=== PATIENT | female | born 1960 | race Caucasian/White ===

== ENCOUNTER 2020-10-10 15:04 | Inpatient (IN) | payer MEDICARE, MEDICAID, SELFPAY ==
[2020-10-10] VITALS (8 sets, daily range): BP systolic 114–126; BP diastolic 43–101; PULSE 84–130; RESP 15–24; TEMP 36.6; O2SAT 94–98; BMI 19.5
--- NOTE | 2020-10-10 15:46 | XRR_ITS ---
PROCEDURE INFORMATION: Exam: XR Chest, 1 View Exam date and time: 10/10/2020 4:03 PM Age: 60 years old Clinical indication: Shortness of breath; Additional info: SOB TECHNIQUE: Imaging protocol: XR of the chest Views: 1 view. COMPARISON: CR Chest 1 [place] [id number] 11/01/2018 12:08 PM FINDINGS: Lungs: Emphysematous changes of the lungs. Surgical changes upper lobes bilaterally. No focal pulmonary consolidation. Pleural spaces: Small volume bilateral pleural effusions. Heart/Mediastinum: Mild cardiac enlargement. Vasculature: Scattered atherosclerosis of thoracic aorta. Bones/joints: Unremarkable. XR/XR chest 1V portable [id number] IMPRESSION: 1. Stigmata of severe emphysema. 2. Development of bilateral pleural effusions.
--- NOTE | 2020-10-10 15:56 | ECG_ITS ---
[facility] Test Date: 2020-10-10 Pat Name: Blanca Ramirez Department: Room: Gender: Female Dtp Operator: : 1960 Requested By: Ira Monroy Order Number: [id number] Bhaskar MD: Elizabeth Posey M.D. Measurements Intervals Wheeler Rate: 128 P: SC: QRS: 93 QRSD: 85 T: -87 QT: 312 QTc: 457 Interpretive Statements ATRIAL FIBRILLATION WITH RAPID VENTRICULAR RESPONSE BORDERLINE RIGHT AXIS DEVIATION [QRS AXIS > 90] POSSIBLE ANTERIOR MYOCARDIAL INFARCTION , PROBABLY OLD [30 ms Q WAVE IN V3/V4, OR R < 0.2 mV IN V4] ST DEVIATION AND MODERATE T-WAVE ABNORMALITY, CONSIDER LATERAL ISCHEMIA [-0.1+ mV T WAVE IN I/aVL/V5/V6] ST DEVIATION AND MODERATE T-WAVE ABNORMALITY, CONSIDER INFERIOR ISCHEMIA [-0.1+ mV T WAVE IN II/aVF] Compared to ECG 11/18/2018 11:53:47 Myocardial infarct finding now present Sinus bradycardia no longer present T-wave abnormality still present Possible ischemia still present Electronically Signed On 10-11-2020 19:34:59 CAR SUPPLIER by Elizabeth Posey M.D. [email or web address]
--- NOTE | 2020-10-10 16:07 | ED_ITS ---
Documented by User: AURE Mcgill 10/10/20 16:49 HPI - SOB/Dyspnea General: Chief Complaint: General Medical Stated Complaint: Needing fluids drained again, recently released Time Seen by Provider: 10/10/20 15:55 Source: patient and family Mode of arrival: wheelchair Limitations: no limitations History of Present Illness: HPI Narrative: Patient is a 60-year-old female who presents to ED today with a main complaint of shortness of breath. Patient tells me she had a cardiac ablation performed on Tuesday at [facility] in [place] for medication resistant atrial fibrillation. Patient tells me she was discharged on Tuesday. She states when she got home she felt extremely fatigued so checked her oxygen and states it was running in the 80s. Patient tells me in 2014 she had a lung volume decrease surgery. She states because of this in combination with her atrial fibrillation she does have oxygen at home but very rarely has to use it. She states she has had to be on oxygen continuously since she got home from her surgery on Tuesday. She states if she gets up and ambulates she will easily drop into the 70s. Patient has also noticed bilateral lower extremity swelling. She states prior to the cardiac ablation they had to diurese 1000 mL fluid. She reports no history of CHF. She states prior to the procedure her medications were hydrocodone that she takes for chronic pain and diltiazem. When she was discharged they discontinued her diltiazem and placed her on metoprolol and eliquis. MD elicited complaint: shortness of breath Onset (ago): day(s) Context: other (recent surgery) Timing: constant Severity: severe Exacerbating factors: exertion Relieving factors: oxygen Associated symptoms: Reports palpitations; Deny abdominal pain, chest congestion, chest pain, fever(s), hemoptysis, nausea or vomiting Treatment prior to arrival: oxygen Review of Systems Const: Reports: other (achiness to bilateral legs); Denies: fever(s), chills, body aches, fatigue or malaise Card: Reports: palpitations, irregular heart rhythm, edema and dyspnea on e xertion; Denies: chest pain Resp: Reports: dyspnea; Denies: productive cough, non-productive cough, wheezing, hemoptysis or chest congestion GI: Denies: abdominal pain, nausea or vomiting Musc: Reports: other (bilateral LE swelling) Neuro: Denies: headache(s) PFSH ED PFSH: Medical History (Updated 10/10/20 @ 20:33 by Gibson Hughes MD, [facility]) Emphysema of lung Paroxysmal atrial fibrillation Surgical History (Updated 10/10/20 @ 20:33 by Gibson Hughes MD, [facility]) History of lung surgery S/P ablation of atrial fibrillation Social History (Updated 10/10/20 @ 19:23 by Elizabeth Posey MD) Smoking and tobacco status: former smoker Quit status (tobacco): has quit using tobacco Year quit tobacco: 2007 Lives independently: No Household members: other Details: daughter Physical Exam Const: COMMON NORMALS: patient oriented x3, no limitations and alert GENERAL APPEARANCE: cooperative NUTRITIONAL APPEARANCE: thin ORIENTATION/CONSCIOUSNESS: Yes awake, Yes oriented to person, Yes oriented to place and Yes oriented to time HENMT: COMMON NORMALS: normocephalic and atraumatic HEAD & SCALP: normocephalic and atraumatic Resp: COMMON NORMALS: clear to auscultation bilaterally EFFORT & INSPECTION: Yes labored (mildly), No grunting, No stridor, No Actively coughing, No retractions and Yes uses accessory muscles AUSCULTATION: clear to auscultation bilaterally Cardio: RATE: tachycardic RHYTHM: abnormal rhythm irregularly irregular GI: COMMON NORMALS: Normal to inspection, nondistended, normoactive bowel sounds present, Soft to palpation, non-tender, No hepatosplenomegaly present and no masses PALPATION: Yes Soft to palpation and Yes No hepatosplenomegaly present Extremity: GENERAL: Yes edema (bilateral LE pitting edema) Neuro: YUN COMA SCALE: document GCS findings Yun coma scale eye opening: Spontaneous [place] coma scale verbal response: Orientated [place] coma scale motor response: Obey commands Yun coma scale total score: 15 COMMON NORMALS: patient oriented x3 SENSORIUM/ORIENTATION: Yes alert, Yes oriented to person, Yes oriented to place and Yes oriented to time Course Vital Signs: Vital signs: Vital Signs Temperature 97.8 F 10/10/20 15:33 Pulse Rate 122 H 10/10/20 19:58 Respiratory Rate 24 H 10/10/20 19:58 Blood Pressure 120/70 10/10/20 18:38 Pulse Oximetry 95 10/10/20 18:38 MDM - SOB/Dyspnea MDM Narrative: Medical decision making narrative: Patient is in atrial fibrillation currently. I have started her on a small cardizem bolus and drip. Lab work pending. CXR shows small bilateral pulmonary effusions. We will CTA her chest to rule out pulmonary embolus. I have discussed patient with Dr. Hughes who will assume care for patient as my shift is ending. Lab Data: Labs: Lab Results 10/10/20 10/10/20 10/10/20 Range/Units 16:35 16:35 16:35 WBC 7.4 (4.0-10.0) 10^3/ uL RBC 4.49 (4.1-5.3) 10^6/u L Hgb 13.5 (11.5-15.3) g/dL Hct 43.0 (37.0-47.0) % MCV 95.8 (81-99) fL MCH 30.1 (28.0-34.0) pg MCHC 31.4 (30.0-36.0) g/dL RDW 14.8 (12.1-15.1) % Plt Count 224 (130-400) 10^3/c mm MPV 9.9 (7.4-10.4) fL Neut % (Auto) 68.8 % Lymph % (Auto) 17.3 % Carver % (Auto) 9.5 % Eos % (Auto) 3.2 % Baso % (Auto) 0.7 % Neut # (Auto) 5.08 (1.8-7.7) 10^3/u L Lymph # (Auto) 1.3 (0.8-4.8) 10^3/u L Carver # (Auto) 0.7 (0.2-0.9) 10^3/u L Eos # (Auto) 0.2 (0.0-0.8) 10^3/u L Baso # (Auto) 0.1 (0.0-0.1) 10^3/u L Nucleated RBC % (a uto) 0 % Nucleated RBCs # 0.0 /100WBC APTT (23.9-36.7) SECO NDS Sodium 141 (136-145) mmol/L Potassium 3.6 (3.5-5.1) mmol/L Chloride 103 (98-107) mmol/L Carbon Dioxide 31 H (22-29) mmol/L Anion Gap 10.6 (5-19) BUN 8 (8-23) mg/dL Creatinine 0.5 (0.5-0.9) mg/dL GFR Calculation 125.0 (90-130) mL/min Glucose 123 H (65-115) mg/dL Calculated Osmolal ity 292 (285-295) mOsm/k g Lactic Acid 1.2 (0.5-2.2) mmol/L Calcium 8.3 L (8.5-10.5) mg/dL Total Bilirubin 0.5 (0.15-1.2) mg/dL AST 15 (0-32) U/L ALT 9 (0-33) U/L Alkaline Phosphata se 62 (35-105) IU/L Troponin T Baselin e (0-10) ng/L NT-Pro-B Natriuret Pep 6134 H (0-125) pg/mL Total Protein 5.4 L (6.6-8.7) g/dL Albumin 3.6 (3.5-5.2) g/dL Globulin 1.8 (1.3-4.6) g/dL 10/10/20 10/10/20 Range/Units 16:35 16:35 WBC (4.0-10.0) 10^3/ uL RBC (4.1-5.3) 10^6/u L Hgb (11.5-15.3) g/dL Hct (37.0-47.0) % MCV (81-99) fL MCH (28.0-34.0) pg MCHC (30.0-36.0) g/dL RDW (12.1-15.1) % Plt Count (130-400) 10^3/c mm MPV (7.4-10.4) fL Neut % (Auto) % Lymph % (Auto) % Carver % (Auto) % Eos % (Auto) % Baso % (Auto) % Neut # (Auto) (1.8-7.7) 10^3/u L Lymph # (Auto) (0.8-4.8) 10^3/u L Carver # (Auto) (0.2-0.9) 10^3/u L Eos # (Auto) (0.0-0.8) 10^3/u L Baso # (Auto) (0.0-0.1) 10^3/u L Nucleated RBC % (a uto) % Nucleated RBCs # /100WBC APTT 37.0 H (23.9-36.7) SECO NDS Sodium (136-145) mmol/L Potassium (3.5-5.1) mmol/L Chloride (98-107) mmol/L Carbon Dioxide (22-29) mmol/L Anion Gap (5-19) BUN (8-23) mg/dL Creatinine (0.5-0.9) mg/dL GFR Calculation (90-130) mL/min Glucose (65-115) mg/dL Calculated Osmolal ity (285-295) mOsm/k g Lactic Acid (0.5-2.2) mmol/L Calcium (8.5-10.5) mg/dL Total Bilirubin (0.15-1.2) mg/dL AST (0-32) U/L ALT (0-33) U/L Alkaline Phosphata se (35-105) IU/L Troponin T Baselin e 458 H* (0-10) ng/L NT-Pro-B Natriuret Pep (0-125) pg/mL Total Protein (6.6-8.7) g/dL Albumin (3.5-5.2) g/dL Globulin (1.3-4.6) g/dL Imaging Data^: CXR: Radiologist's impression: [address] [address] XRay Report Signed Patient: Blanca Ramirez Unit #: [id number] : [id number] Age/Sex: 60 / F ADM Date: 10/10/20 Loc: ER Room/Bed: Attending Dr: Ordering Provider/Ordering MD: Ira Monroy Date of Service: 10/10/20 Procedure(s): XR chest 1V portable [id number] Accession Number(s): [id number] Report Number: [id number] PROCEDURE INFORMATION: Exam: XR Chest, 1 View Exam date and time: 10/10/2020 4:03 PM Age: 60 years old Clinical indication: Shortness of breath; Additional info: SOB TECHNIQUE: Imaging protocol: XR of the chest Views: 1 view. COMPARISON: CR Chest 1 [place] [id number] 11/01/2018 12:08 PM FINDINGS: Lungs: Emphysematous changes of the lungs. Surgical changes upper lobes bilaterally. No focal pulmonary consolidation. Pleural spaces: Small volume bilateral pleural effusions. Heart/Mediastinum: Mild cardiac enlargement. Vasculature: Scattered atherosclerosis of thoracic aorta. Bones/joints: Unremarkable. XR/XR chest 1V portable [id number] IMPRESSION: 1. Stigmata of severe emphysema. 2. Development of bilateral pleural effusions. Dictated By: Xavi Murphy Signed By: Xavi Murphy Signed Date/Time: 10/10/20 1620 DD/ 1618 Discharge Plan Discharge Patient Disposition: Admitted As Inpatient Admit Provider: Rickie Simons Clinical Impression: NSTEMI (non-ST elevated myocardial infarction), Atrial fibrillation with RVR, Acute decompensated heart failure, S/P ablation of atrial fibrillation Pulmonary embolism Qualifiers: Pulmonary embolism type: single subsegmental (without acute cor pulmonale) Qualified Code(s): I26.93 - Single subsegmental pulmonary embolism without acute cor pulmonale Condition: Stable Discharge Diet: Cardiac Sign Out Sign Out Data: Patient Sign Out occurred on 10/10/20 at 17:20. Patient's care was discussed, and care was transferred from to Gibson Hughes MD, [facility]. Post-Handoff Eval: Patient with a.fib with RVR who is pending her troponin, CTA, and is likely going to be Coding Level of Care Code ED Servomechanism Assembler for Chg Fwd Exam Detailed Documented by User: Gibson Hughes MD, [facility] 10/10/20 20:34 HPI - SOB/Dyspnea General: Chief Complaint: General Medical Stated Complaint: Needing fluids drained again, recently released Time Seen by Provider: 10/10/20 15:55 PFSH ED PFSH: Medical History (Updated 10/10/20 @ 20:33 by Gibson Hughes MD, [facility]) Emphysema of lung Paroxysmal atrial fibrillation Surgical History (Updated 10/10/20 @ 20:33 by Gibson Hughes MD, [facility]) History of lung surgery S/P ablation of atrial fibrillation Social History (Updated 10/10/20 @ 19:23 by Elizabeth Posey MD) Smoking and tobacco status: former smoker Quit status (tobacco): has quit using tobacco Year quit tobacco: 2007 Lives independently: No Household members: other Details: daughter Course Reevaluation(s): Reevaluation #1: Discussed her lab and imaging findings with her including her troponin levels. Advised that she possibly has a non-STEMI, she also has CHF. Advised that she needs to be in the hospital. Since she had the ablation done at [facility] I asked if she would like to return there for continuity of care, however she would prefer to be admitted in this facility and if needed can later be transferred. Time: 17:15 Consultations: Consultation #1: Discussed the patient with Dr. Posey, gas dispenser. She will evaluate this patient in the ED and follow the patient in the hospital. Time: 17:26 Consultation #2: Discussed the patient with Dr. Simons, hospitalist and he kindly accepted the patient to his service. Time: 17:30 Vital Signs: Vital signs: Vital Signs Temperature 97.8 F 10/10/20 15:33 Pulse Rate 122 H 10/10/20 19:58 Respiratory Rate 24 H 10/10/20 19:58 Blood Pressure 120/70 10/10/20 18:38 Pulse Oximetry 95 10/10/20 18:38 MDM - SOB/Dyspnea MDM Narrative: Medical decision making narrative: Kindly review the Ira LOONEY's notes for complete history and physical examination. Essentially this is a 60-year-old female with a history of A. fib and had an ablation done a few days ago at [facility] in [place]. Since she got discharged about 4 days ago she has had worsening shortness of breath with associated orthopnea, paroxysmal nocturnal dyspnea, and dyspnea on exertion. In the ED today she was found to be in A. fib with RVR and required intravenous diltiazem including a drip, baseline troponin was markedly elevated at greater than 400, and she is in CHF. Because of all the above she is being admitted for further cardiac work-up and management. The patient opted to be admitted in this facility instead of being transferred back to [place]. She was started on a heparin drip also in the emergency department. Medical Records: Attestation: I reviewed the patient's medical records. Lab Data: Attestation: I reviewed the patient's lab results. Labs: Lab Results 10/10/20 10/10/20 10/10/20 Range/Units 16:35 16:35 16:35 WBC 7.4 (4.0-10.0) 10^3/ uL RBC 4.49 (4.1-5.3) 10^6/u L Hgb 13.5 (11.5-15.3) g/dL Hct 43.0 (37.0-47.0) % MCV 95.8 (81-99) fL MCH 30.1 (28.0-34.0) pg MCHC 31.4 (30.0-36.0) g/dL RDW 14.8 (12.1-15.1) % Plt Count 224 (130-400) 10^3/c mm MPV 9.9 (7.4-10.4) fL Neut % (Auto) 68.8 % Lymph % (Auto) 17.3 % Carver % (Auto) 9.5 % Eos % (Auto) 3.2 % Baso % (Auto) 0.7 % Neut # (Auto) 5.08 (1.8-7.7) 10^3/u L Lymph # (Auto) 1.3 (0.8-4.8) 10^3/u L Carver # (Auto) 0.7 (0.2-0.9) 10^3/u L Eos # (Auto) 0.2 (0.0-0.8) 10^3/u L Baso # (Auto) 0.1 (0.0-0.1) 10^3/u L Nucleated RBC % (a uto) 0 % Nucleated RBCs # 0.0 /100WBC APTT (23.9-36.7) SECO NDS Sodium 141 (136-145) mmol/L Potassium 3.6 (3.5-5.1) mmol/L Chloride 103 (98-107) mmol/L Carbon Dioxide 31 H (22-29) mmol/L Anion Gap 10.6 (5-19) BUN 8 (8-23) mg/dL Creatinine 0.5 (0.5-0.9) mg/dL GFR Calculation 125.0 (90-130) mL/min Glucose 123 H (65-115) mg/dL Calculated Osmolal ity 292 (285-295) mOsm/k g Lactic Acid 1.2 (0.5-2.2) mmol/L Calcium 8.3 L (8.5-10.5) mg/dL Total Bilirubin 0.5 (0.15-1.2) mg/dL AST 15 (0-32) U/L ALT 9 (0-33) U/L Alkaline Phosphata se 62 (35-105) IU/L Troponin T Baselin e (0-10) ng/L NT-Pro-B Natriuret Pep 6134 H (0-125) pg/mL Total Protein 5.4 L (6.6-8.7) g/dL Albumin 3.6 (3.5-5.2) g/dL Globulin 1.8 (1.3-4.6) g/dL 10/10/20 10/10/20 Range/Units 16:35 16:35 WBC (4.0-10.0) 10^3/ uL RBC (4.1-5.3) 10^6/u L Hgb (11.5-15.3) g/dL Hct (37.0-47.0) % MCV (81-99) fL MCH (28.0-34.0) pg MCHC (30.0-36.0) g/dL RDW (12.1-15.1) % Plt Count (130-400) 10^3/c mm MPV (7.4-10.4) fL Neut % (Auto) % Lymph % (Auto) % Carver % (Auto) % Eos % (Auto) % Baso % (Auto) % Neut # (Auto) (1.8-7.7) 10^3/u L Lymph # (Auto) (0.8-4.8) 10^3/u L Carver # (Auto) (0.2-0.9) 10^3/u L Eos # (Auto) (0.0-0.8) 10^3/u L Baso # (Auto) (0.0-0.1) 10^3/u L Nucleated RBC % (a uto) % Nucleated RBCs # /100WBC APTT 37.0 H (23.9-36.7) SECO NDS Sodium (136-145) mmol/L Potassium (3.5-5.1) mmol/L Chloride (98-107) mmol/L Carbon Dioxide (22-29) mmol/L Anion Gap (5-19) BUN (8-23) mg/dL Creatinine (0.5-0.9) mg/dL GFR Calculation (90-130) mL/min Glucose (65-115) mg/dL Calculated Osmolal ity (285-295) mOsm/k g Lactic Acid (0.5-2.2) mmol/L Calcium (8.5-10.5) mg/dL Total Bilirubin (0.15-1.2) mg/dL AST (0-32) U/L ALT (0-33) U/L Alkaline Phosphata se (35-105) IU/L Troponin T Baselin e 458 H* (0-10) ng/L NT-Pro-B Natriuret Pep (0-125) pg/mL Total Protein (6.6-8.7) g/dL Albumin (3.5-5.2) g/dL Globulin (1.3-4.6) g/dL Imaging Data^: CXR: Attestation: I personally reviewed and interpreted this imaging study as follows: Radiologist's impression: [address] [address] XRay Report Signed Patient: Blanca Ramirez #: [id number] : 8Acct#:[id number] Age/Sex: 60 / FADM Date: 10/10/20 Loc: ERRoom/Bed: Attending Dr: Ordering Provider/Ordering MD: Ira Monroy Date of Service: 10/10/20 Procedure(s): XR chest 1V portable [id number] Accession Number(s): [id number] Report Number: [id number] PROCEDURE INFORMATION: Exam: XR Chest, 1 View Exam date and time: 10/10/2020 4:03 PM Age: 60 years old Clinical indication: Shortness of breath; Additional info: SOB TECHNIQUE: Imaging protocol: XR of the chest Views: 1 view. COMPARISON: CR Chest 1 [place] [id number] 11/01/2018 12:08 PM FINDINGS: Lungs: Emphysematous changes of the lungs. Surgical changes upper lobes bilaterally. No focal pulmonary consolidation. Pleural spaces: Small volume bilateral pleural effusions. Heart/Mediastinum: Mild cardiac enlargement. Vasculature: Scattered atherosclerosis of thoracic aorta. Bones/joints: Unremarkable. XR/XR chest 1V portable [id number] IMPRESSION: 1. Stigmata of severe emphysema. 2. Development of bilateral pleural effusions. Dictated By:Xavi Murphy Signed By:Vipin Murphy Date/Time:10/10/20 1620 DD/ 1618 CTA Chest: Attestation: I personally reviewed and interpreted this imaging study as follows: Radiologist's impression: [place] [address] CT Scan Report Signed with Addenda Patient: Blanca Ramirez #: [id number] : 8Acct#:[id number] Age/Sex: 60 / FADM Date: 10/10/20 Loc: ERRoom/Bed: Attending Dr: Ordering Provider/Ordering MD: Ira Monroy Date of Service: 10/10/20 Procedure(s): CT angio chest PE protcl [id number] Accession Number(s): [id number] Report Number: [id number]/CT angio chest PE protcl [id number] THIS REPORT CONTAINS FINDINGS THAT MAY BE CRITICAL TO PATIENT CARE. The findings were verbally communicated via telephone conference with Dr. Hughes at 6:26 PM BLOWER INSTALLER on 10/10/2020. The findings were acknowledged and understood. Radiation Dose CTDIVOL = (mGy): DLP = 452.9 (mGy-cm) Addendum Dictated By: Xavi Murphy Addendum Signed By: Vipin Murphy Date/Time:10/10/20 1828 Addendum Cosigned By: PROCEDURE INFORMATION: Exam: CT Angiography Chest With Contrast Exam date and time: 10/10/2020 5:18 PM Age: 60 years old Clinical indication: Shortness of breath; Prior surgery; Surgery type: Lung; Additional info: Recent cardiac ablation; Severe SOB TECHNIQUE: Imaging protocol: Computed tomographic angiography of the chest with contrast. 3D rendering (Not supervised by radiologist): MIP and/or 3D reconstructed images were created by the technologist. Radiation optimization: All CT scans at this facility use at least one of these dose optimization techniques: automated exposure control; mA and/or kV adjustment per patient size (includes targeted exams where dose is matched to clinical indication); or iterative reconstruction. Contrast material: OMNI 350; Contrast volume: 91 ml; Contrast route: INTRAVENOUS (IV); COMPARISON: CTA Chest-Pulmonary Emb [id number] 09/14/2015 3:02 PM RADIATION DOSE METRICS: Total DLP (mGy-cm): 452.9 FINDINGS: Pulmonary arteries: There appears to be an eccentric filling defect within the anteroapical pulmonary segmental artery of the right upper lobe best seen on axial series 2, images 169-191. Aorta: Unremarkable. No aortic aneurysm. No aortic dissection. Lungs: Severe emphysema throughout both lungs. No focal endobronchial lesion. Mild bilateral lower lobe compressive atelectasis changes. Pleural spaces: Small volume bilateral pleural effusions. Negative for pneumothorax. Heart: Multichamber cardiac dilation changes. Negative for pericardial effusion. RV/LV ratio appears unremarkable, slightly less than 0.9. No interventricular septal bowing. Lymph nodes: Unremarkable. No enlarged lymph nodes. Intraperitoneal space: Trace perihepatic free fluid volume. Bones/joints: Unremarkable. No acute fracture. Soft tissues: Unremarkable. CT/CT angio chest PE protcl [id number] IMPRESSION: 1. Suspect small volume pulmonary artery embolism in the right upper lobe. 2. No convincing CT angiogram evidence of acute significant right heart strain, although clinical correlation necessary. 3. Mildly dilated cardiomyopathy changes not significantly changed from prior. 4. Development of bilateral pleural effusions. 5. Features of advanced centrilobular emphysema throughout the lungs. Radiation Dose CTDIVOL = (mGy): DLP = 452.9 (mGy-cm) Dictated By:Xavi Murphy Signed By:Vipin Murphy Date/Time:10/10/20 1800 DD/ 1759 EKG Data^: EKG 1: Attestation: I personally reviewed and interpreted this EKG as follows: EKG Interpretation Date: 10/10/20 EKG interpretation time: 16:16 Prior EKG tracings: not available for review Interpretation: Atrial fibrillation with RVR. Heart rate [address] depression in [address] depression in V4 V5 V6. EKG 2: Attestation: I personally reviewed and interpreted this EKG as follows: EKG Interpretation Date: 10/10/20 EKG interpretation time: 18:48 Prior EKG tracings: available for review Interpretation: Atrial fibrillation with RVR. Heart rate [address] depression in 2 3 aVF as well as V4 V5 V6. No significant change from earlier Critical Care Time Critical Care Time: Critical Care Time: Yes Total Critical Care Time: 60 Attestation: This case had a high probability of a clinically significant, sudden, or life threatening deterioration of this patient's condition which required my full and direct attention, intervention and personal management. Discharge Plan Discharge Patient Disposition: Admitted As Inpatient Admit Provider: Rickie Simons Clinical Impression: NSTEMI (non-ST elevated myocardial infarction), Atrial fibrillation with RVR, Acute decompensated heart failure, S/P ablation of atrial fibrillation Pulmonary embolism Qualifiers: Pulmonary embolism type: single subsegmental (without acute cor pulmonale) Qualified Code(s): I26.93 - Single subsegmental pulmonary embolism without acute cor pulmonale Condition: Stable Discharge Diet: Cardiac Sign Out Sign Out Data: Patient Sign Out occurred on 10/10/20 at 17:20. Patient's care was discussed, and care was transferred from to Gibson Hughes MD, [facility]. Post-Handoff Eval: Patient with a.fib with RVR who is pending her troponin, CTA, and is likely going to be Coding Level of Care Code ED Servomechanism Assembler for Chg Fwd Exam Detailed
--- NOTE | 2020-10-10 16:11 | CTR_ITS ---
PROCEDURE INFORMATION: Exam: CT Angiography Chest With Contrast Exam date and time: 10/10/2020 5:18 PM Age: 60 years old Clinical indication: Shortness of breath; Prior surgery; Surgery type: Lung; Additional info: Recent cardiac ablation; Severe SOB TECHNIQUE: Imaging protocol: Computed tomographic angiography of the chest with contrast. 3D rendering (Not supervised by radiologist): MIP and/or 3D reconstructed images were created by the technologist. Radiation optimization: All CT scans at this facility use at least one of these dose optimization techniques: automated exposure control; mA and/or kV adjustment per patient size (includes targeted exams where dose is matched to clinical indication); or iterative reconstruction. Contrast material: OMNI 350; Contrast volume: 91 ml; Contrast route: INTRAVENOUS (IV); COMPARISON: CTA Chest-Pulmonary Emb [id number] 09/14/2015 3:02 PM RADIATION DOSE METRICS: Total DLP (mGy-cm): 452.9 FINDINGS: Pulmonary arteries: There appears to be an eccentric filling defect within the anteroapical pulmonary segmental artery of the right upper lobe best seen on axial series 2, images 169-191. Aorta: Unremarkable. No aortic aneurysm. No aortic dissection. Lungs: Severe emphysema throughout both lungs. No focal endobronchial lesion. Mild bilateral lower lobe compressive atelectasis changes. Pleural spaces: Small volume bilateral pleural effusions. Negative for pneumothorax. Heart: Multichamber cardiac dilation changes. Negative for pericardial effusion. RV/LV ratio appears unremarkable, slightly less than 0.9. No interventricular septal bowing. Lymph nodes: Unremarkable. No enlarged lymph nodes. Intraperitoneal space: Trace perihepatic free fluid volume. Bones/joints: Unremarkable. No acute fracture. Soft tissues: Unremarkable. CT/CT angio chest PE protcl [id number] IMPRESSION: 1. Suspect small volume pulmonary artery embolism in the right upper lobe. 2. No convincing CT angiogram evidence of acute significant right heart strain, although clinical correlation necessary. 3. Mildly dilated cardiomyopathy changes not significantly changed from prior. 4. Development of bilateral pleural effusions. 5. Features of advanced centrilobular emphysema throughout the lungs. Radiation Dose CTDIVOL = (mGy): DLP = 452.9 (mGy-cm)
--- NOTE | 2020-10-10 16:12 | PC.PHAR ---
PT STATES SHE WAS TAKING DILTIAZEM ER (CD) 240MG PO DAILY AND MAY TAKE ONE MORE TAB PRN MAX OF 2 TABS PER DAY PT STATES THAT MEDICATION WAS DCED ON Tuesday10/03/20
--- NOTE | 2020-10-10 16:29 | PC.NURSE ---
EKG done at 1616 and shown to ELISA LOONEY
[2020-10-10 16:48] LABS: Basophils # 0.1 10^3/uL (0.0-0.1); Basophils % 0.7 %; Eosinophils # 0.2 10^3/uL (0.0-0.8); Eosinophils % 3.2 %; Hemoglobin 13.5 g/dL (11.5-15.3); Lymphocytes # 1.3 10^3/uL (0.8-4.8); Lymphocytes % 17.3 %; Mean Corpuscular HGB Conc 31.4 g/dL (30.0-36.0); Mean Corpuscular Hemoglobin 30.1 pg (28.0-34.0); Mean Corpuscular Volume 95.8 fL (81-99); Mean Platelet Volume 9.9 fL (7.4-10.4); Monocytes # 0.7 10^3/uL (0.2-0.9); Monocytes % 9.5 %; Neutrophils # 5.08 10^3/uL (1.8-7.7); Neutrophils % 68.8 %; Nucleated Red Blood Cells % 0 %; Platelet Count 224 10^3/cmm (130-400); Red Blood Count 4.49 10^6/uL (4.1-5.3); Red Cell Distribution Width 14.8 % (12.1-15.1); White Blood Count 7.4 10^3/uL (4.0-10.0)
[2020-10-10 17:02] LABS: Lactic Sepsis W/Reflex 1.2 mmol/L (0.5-2.2)
[2020-10-10 17:10] LABS: Troponin(5th) Baseline 458 ng/L (0-10)
[2020-10-10 17:14] LABS: Alanine Aminotransferase 9 U/L (0-33); Albumin Level 3.6 g/dL (3.5-5.2); Alkaline Phosphatase 62 IU/L (35-105); Anion Gap 10.6 (5-19); Aspartate Amino Transferase 15 U/L (0-32); Blood Urea Nitrogen 8 mg/dL (8-23); Calcium 8.3 mg/dL (8.5-10.5); Carbon Dioxide 31 mmol/L (22-29); Chloride 103 mmol/L (98-107); Creatinine Clr Calc Pharmacy 117.2582; Globulin 1.8 g/dL (1.3-4.6); Glucose 123 mg/dL (65-115); NT Pro B Type Natriuretic Pept 6134 pg/mL (0-125); Osmolality Calculated 292 mOsm/kg (285-295); Potassium 3.6 mmol/L (3.5-5.1); Sodium 141 mmol/L (136-145); Total Bilirubin 0.5 mg/dL (0.15-1.2); Total Protein 5.4 g/dL (6.6-8.7)
[2020-10-10] MEDS: iohexol 350 mg/mL 100 mL Btl IV (17:28)
--- NOTE | 2020-10-10 17:29 | PM.CONSULT ---
Providers/Reason For Consult Consulting Physican/Specialty*: Dr. Posey, cardiology Reason for Consult*: A. fib with RVR, elevated troponin and decompensated congestive heart failure Requesting Physcian: Dr. Hughes Primary Care Provider: Anay Morillo MD History of Present Illness History of Present Illness Blanca Ramirez is a 60 year old female with past medical history significant for paroxysmal atrial fibrillation s/p cardioversion in October 2018, nonobstructive mild coronary artery disease by coronary angiogram in 2014, severe emphysema on oxtgen at home as needed, history of tobacco abuse and status post lung reduction surgery. She is a former patient of Dr. Haddad. She has a history of non compliance and was accompanied by her sister today. History was obtained from patient and her daughter. She was referred to Dr. Monsivais by Dr. Morillo for A. fib ablation. She tells me that her last episode of symptomatic A. fib was in 04/2020. She saw Dr. Monsivais at [facility] in [place] and was scheduled to have outpatient A. fib ablation. She was undergoing pre op w/u and got admitted on Tuesday d/t some abnormal ?labs/test results and was diuresed about 1 L and had angiogram as well. I do not have any records to corroborate the story.She was discharged on metoprolol and Eliquis (yvonne med). She was discharged home on Tuesday and soon after started having significant SOB and leg swelling. Her pulse on pulse ox was ranging 60-80's per patient. On arrival, her proBNP is elevated and troponin T >400. NO chest pain. She is currently in A. fib with RVR. I have been asked to evaluate and assist in further management. Review of Systems General: Reports: 10 or more systems reviewed and unremarkable except in HPI and below Const: Denies: fever(s), chills, body aches, fatigue or malaise ENMT: Denies: nasal congestion or epistaxis Card: Reports: palpitations, irregular heart rhythm, edema and dyspnea on exertion; Denies: chest pain or orthopnea Resp: Reports: dyspnea; Denies: productive cough, non-productive cough, wheezing, hemoptysis or chest congestion GI: Denies: abdominal pain, nausea, vomiting, hematochezia or melena : Denies: difficulty voiding, dysuria or hematuria Musc: Reports: extremity swelling and other Neuro: Denies: headache(s) Psych: Denies: anxiety or depression Bhaskar/Lymph: Denies: petechiae or purpura All/Imm: Denies: facial swelling Meds/Allergies Home Medications and Allergies Home Medications Medication Instructions Recorded Confirmed Last Taken Type acetaminophen [Tylenol Extra 1,000 mg PO PRN 10/10/20 10/10/20 Unknown History Strength] apixaban [Eliquis] 5 mg PO BID 10/10/20 10/10/20 10/10/20 09:00 History hydrocodone-acetaminophen 1 - 2 tab PO Q4H PRN MDD 5 TABS 10/10/20 10/10/20 10/10/20 14:00 History metoprolol succinate 25 mg PO QAM 10/10/20 10/10/20 10/10/20 History Allergies Allergy/AdvReac Type Severity Reaction Status Date / Time No Known Allergies Allergy Verified 10/10/20 16:11 Current Medications Current Medications Generic Name Dose Route Start Last Admin Trade Name Freq PRN Reason Stop Dose Admin Iohexol 0 ml 10/10/20 17:28 10/10/20 17:28 Iohexol 350 Mg/Ml 100 Ml Btl IV 10/10/20 17:29 91 ml ONCE ONE Administration PFSH Acute PFSH: Medical History (Updated 10/10/20 @ 19:22 by Elizabeth Posey MD) Emphysema of lung Paroxysmal atrial fibrillation Surgical History (Updated 10/10/20 @ 19:22 by Elizabeth Posey MD) History of lung surgery S/P ablation of atrial fibrillation Social History (Updated 10/10/20 @ 19:23 by Elizabeth Posey MD) Smoking and tobacco status: former smoker Quit status (tobacco): has quit using tobacco Year quit tobacco: 2007 Lives independently: No Household members: other Details: daughter Vitals/I&O/Wt Last Vital Signs Temp 97.8 F 10/10/20 15:33 Pulse 120 H 10/10/20 16:16 Resp 22 H 10/10/20 16:16 BP 117/101 10/10/20 16:16 Pulse Ox 97 10/10/20 16:16 Weight last 48 hrs Weight 132 lb Physical Exam Narrative: EXAM NARRATIVE: GENERAL: Averagely built and averagely nourished in no acute distress HEENT: Extraocular movement intact. Pupils equal round reactive to light. No pallor or icterus. NECK: central trachea, Mild JVD. CARDIOVASCULAR SYSTEM: S1-S2 irregular. tachycardia+. No murmur rubs or gallops. RESPIRATORY SYSTEM: coarse breath sounds, decreased at bases. No wheezes rhonchi or rubs heard. +use of accessory muscles. tachypnea+ ABDOMEN: Soft, nontender and nondistended. Normal bowel sounds present. EXTREMITIES: No cyanosis or clubbing. 1-2+ bilateral edema. No signs of chronic venous insufficiency. 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 No focal neurological deficits. SKIN: Normal turgor and temperature. No breakdown, rash or nail changes noted. PSYCH: Normal insight and judgment. Data Labs: Other Labs: Troponin T of 458, NT proBNP 6134 Micro: Micro: Microbiology 10/10/20 16:35 Blood Culture - Pr eliminary Blood SPECIMEN [facility] Imaging^: CXR: Radiologist's impression: IMPRESSION: 1. Stigmata of severe emphysema. 2. Development of bilateral pleural effusions. Other Data: Attestation for Other Data: I personally reviewed and interpreted the following: Other data: EKG with A. fib with RVR at 128 bpm. Borderline right axis deviation POSSIBLE ANTERIOR MYOCARDIAL INFARCTION , PROBABLY OLD [30 ms Q WAVE IN V3/V4, OR R < 0.2 mV IN V4] ST DEVIATION AND MODERATE T-WAVE ABNORMALITY, CONSIDER LATERAL ISCHEMIA [-0.1+ mV T WAVE IN I/aVL/V5/V6] ST DEVIATION AND MODERATE T-WAVE ABNORMALITY, CONSIDER INFERIOR ISCHEMIA [-0.1+ mV T WAVE IN II/aVF] Compared to ECG 11/18/2018 11:53:47 Myocardial infarct finding now present Sinus bradycardia no longer present T-wave abnormality still present Possible ischemia still present JEISON 17 November 2018 CONCLUSIONS 1-Normal left ventricular cavity size. Normal left ventricular systolic function. Left ventricular ejection fraction is estimated at 55 %. 2-Moderately increased left atrial size. 3-No thrombus visualized in the left atrial appendage. Normal flow velocities in the left atrial appendage. 4-Thickened mitral valve. No mitral valve stenosis. Moderate mitral valve regurgitation. 5-There is no pericardial effusion. 6-There are no prior echocardiogram studies to compare. A&P Assessment and plan (1) NSTEMI (non-ST elevated myocardial infarction): Type 1 vs Tpe 2 -continue ASA, statin, metoprolol, NTG PRN and heparin gtt. -f/u on echo, troponins and EKG -request for records from [facility]. Status: Acute (2) Atrial fibrillation with RVR: [id number]=rm least 2/9; 1 for female sex and 1 for CHF; s/p recent ablation. -continue metoprolol and start on amiodarone. No prior antiarrhythmic use. -f/u on records. -Hold Eliquis and continue heparin gtt. Status: Acute (3) Acute decompensated heart failure: received lasix 40 mg IV x 1 -lasix 40 mg IV BID Status: Acute Additional A&P Information Severe emphysema Nonobstructive mild coronary artery disease by coronary angiogram in 2014 s/p lung Sx Former smoker H/o non compliance Thank you for allowing me to participate in patient's care. Please fell free to call with questions or concerns. Consult Attestations Medical Necessity Statement: Needs hospital stay for A. fib, CHF and NSTEMI Time Spent in Patient Care: Greater than 35 minutes (>than 50% of time spent in counselling and/or direct pt care on unit). Coding Level of Care Code Acute Tax Compliance Manager for Mariaelena Osorio Diagnoses NSTEMI (non-ST elevated myocardial infarction) I21.4 Atrial fibrillation with RVR I48.91 Acute decompensated heart failure I50.9
[2020-10-10] MEDS: heparin 5,000 unit/mL INJ 1 mL IV (17:48)
[2020-10-10] MEDS: heparin drip 25,000 UNIT/500 ML PREMIX 16.8 UNIT IV (17:50)
--- NOTE | 2020-10-10 17:56 | ECG_ITS ---
[facility] Test Date: 2020-10-10 Pat Name: Blanca Ramirez Department: Room: Gender: Female Inspector: : 1960 Requested By: Ira Monroy Order Number: [id number] Bhaskar MD: Elizabeth Posey M.D. Measurements Intervals Butler Rate: 111 P: NE: QRS: 105 QRSD: 90 T: 266 QT: 323 QTc: 441 Interpretive Statements ATRIAL FIBRILLATION WITH RAPID VENTRICULAR RESPONSE RIGHT AXIS DEVIATION [QRS AXIS > 100] POSSIBLE ANTERIOR MYOCARDIAL INFARCTION , PROBABLY OLD [30 ms Q WAVE IN V3/V4, OR R < 0.2 mV IN V4] MODERATE T-WAVE ABNORMALITY, CONSIDER LATERAL ISCHEMIA [-0.1+ mV T WAVE IN I/aVL/V5/V6] MODERATE T-WAVE ABNORMALITY, CONSIDER INFERIOR ISCHEMIA [-0.1+ mV T WAVE IN II/aVF] Compared to ECG 10/10/2020 16:16:22 No significant changes Electronically Signed On 10-11-2020 19:56:59 BUYER by Elizabeth Posey M.D. [id number]
--- NOTE | 2020-10-10 18:24 | PM.HP ---
Providers/Chief Complaint Primary Care Provider: Anay Morillo MD Chief Complaint: Needing fluids drained again, recently released History of Present Illness Blanca Ramirez is a 60 year old female with past medical history of A. fib status post a week back by Dr. Cheney at the [facility],h/o bilateral upper lobe lung reduction surgery, came in with chief complaint of worsening shortness of breath as well as worsening bilateral lower extremity swelling, as well as central chest tightness, symptoms have got worsened in the last for 3 days, it has got worsened to the point that she cannot lie flat, she is also complaining of PND. Upon arrival in the ER she was worked up for above-mentioned, complaint. EKG: A. fib with RVR with rate in 110s to 120s. CT angio chest: Cannot rule out small volume pulmonary artery embolism in the right upper lobe.Bilateral small pleural effusion.Features of advanced centrilobular emphysema throughout the lungs. Pertinent labs: Troponin: Baseline: 458, 2-hour: 2-hour delta: 6-hour: proBNP: 6134 ECA medications: Lasix 40 IV x1 dose, heparin drip, Cardizem 5 mg I.V * 1 Dose , Cardizem drip. Review of Systems Const: Denies: chills, body aches, change in appetite or diaphoresis Resp: Denies: productive cough, wheezing or pain on inspiration GI: Denies: abdominal pain, nausea, vomiting, diarrhea or constipation : Denies: flank pain Musc: Denies: back pain, extremity pain or extremity swelling Neuro: Denies: headache(s), difficulty walking or confusion Medications/Allergies Home Medications Medication Instructions Recorded Confirmed Last Taken Type acetaminophen [Tylenol Extra 1,000 mg PO PRN 10/10/20 10/10/20 Unknown History Strength] apixaban [Eliquis] 5 mg PO BID 10/10/20 10/10/20 10/10/20 09:00 History hydrocodone-acetaminophen 1 - 2 tab PO Q4H PRN MDD 5 TABS 10/10/20 10/10/20 10/10/20 14:00 History metoprolol succinate 25 mg PO QAM 10/10/20 10/10/20 10/10/20 History Allergies Allergy/AdvReac Type Severity Reaction Status Date / Time No Known Allergies Allergy Verified 10/10/20 16:11 Vitals/I&O/Wt Last Vital Signs Temp 97.8 F 10/10/20 15:33 Pulse 108 H 10/10/20 18:22 Resp 20 H 10/10/20 18:22 BP 126/86 10/10/20 18:22 Pulse Ox 96 10/10/20 18:22 Weight last 48 hrs Weight 59.874 kg Physical Exam Const: COMMON NORMALS: patient oriented x3 HENMT: COMMON NORMALS: normocephalic and atraumatic HEAD & SCALP: normocephalic and atraumatic Resp: OTHER: Bilateral fine crackles present in both the lung guerrero.Diminished air entry in both lung guerrero Cardio: COMMON NORMALS: Peripheral pulses 2+ throughout RHYTHM: abnormal rhythm PERIPHERAL PULSES: Peripheral pulses 2+ throughout OTHER: S1-S2 variable intensity. No murmur, rub or gallop GI: COMMON NORMALS: Normal to inspection, nondistended, normoactive bowel sounds present, Soft to palpation, non-tender, No hepatosplenomegaly present and no masses AUSCULTATION: Yes normoactive bowel sounds PALPATION: Yes Soft to palpation and Yes No hepatosplenomegaly present RECTAL EXAM: deferred Extremity: NARRATIVE EXTREMITY EXAM: 2 + b/l l/e pitting edema Neuro: COMMON NORMALS: patient oriented x3 Data : 10/10/20 16:35 10/10/20 16:35 Micro: Microbiology 10/10/20 16:35 Blood Culture - Preliminary Blood SPECIMEN COLLECTED A&P Assessment and plan (1) Acute decompensated heart failure: Lasix 40 every 12 IV Daily weight Intake output charting Lisinopril 2.5 mg p.o. daily Metoprolol succinate 25 mg p.o. daily 2D echo Status: Acute (2) Atrial fibrillation with RVR: Currently on Cardizem drip. We will start metoprolol succinate 25 mg p.o. daily Amiodarone 400 mg p.o. every 12h She is on Eliquis at home currently on heparin drip Status: Acute (3) NSTEMI (non-ST elevated myocardial infarction): Elevated troponin, likely secondary to type I versus type II HI.It could be a possibility that A. fib with RVR as well as CHF is contributing to the troponin leak, or she may have underlying coronary artery disease. Follow troponin trend Aspirin 81 mg p.o. Atorvastatin 40 mg p.o. day Status: Acute (4) S/P ablation of atrial fibrillation: Status: Acute Attestations Medical Necessity Statement*: Patient needs to be in hospital for the management of CHF exacerbation, A. fib with RVR. Anticipated length of stay is greater than 2 midnights. Coding Level of Care Code Acute Tufting Machine Operator Single Needle for [facility] Fwd Diagnoses Acute decompensated heart failure I50.9 Atrial fibrillation with RVR I48.91 NSTEMI (non-ST elevated myocardial infarction) I21.4 S/P ablation of atrial fibrillation Z98.890; Z86.79
[2020-10-10] MEDS: FUROsemide 10 mg/mL SDV 4mL 40 MG IVP ×2 (18:29→21:15)
[2020-10-10 19:28] LABS: Troponin 5 2HR Delta 8.7 ABS# (0-10)
[2020-10-10 19:35] LABS: Troponin 5 2HR 466.7 ng/L (0-10)
--- NOTE | 2020-10-10 19:43 | PC.NURSE ---
delta trop 8.7 2 hr trop 466.7
[2020-10-10 19:44] LABS: Add Urine Microscopic? NO
[2020-10-10 19:51] LABS: Bilirubin Urine Neg (Negative); Blood Urine Neg (Negative); Glucose Urine UA Norm (Normal); Ketones Urine Negative (Negative); Leukocyte Esterase Urine Negative (Negative); Nitrate Urine Negative (Negative); Protein Urine Neg (Negative); Specific Gravity, Urine 1.005 (1.005-1.030); Urine Appearance Clear (CLEAR); Urine Color Straw (Yellow); Urobilinogen Urine Norm (Negative); pH Urine 7 (5-7)
[2020-10-10] MEDS: amiodarone 200 mg Tablet 400 MG PO (21:12)
[2020-10-10] MEDS: atorvastatin 40 mg Tablet PO (21:14)
[2020-10-10] MEDS: metoprolol succinate ER (24 HR) 25 mg Tablet PO (21:15)
[2020-10-10] MEDS: oxyCODONE-APAP 5-325 mg Tablet 1 TAB PO (23:36)
[2020-10-11] VITALS (15 sets, daily range): BP systolic 98–133; BP diastolic 62–89; PULSE 6–99; RESP 14–20; TEMP 36.4–37.4; O2SAT 91–98
[2020-10-11 00:46] LABS: Troponin 5 6HR 418.3 ng/L (0-10)
[2020-10-11 01:42] LABS: Partial Thromboplastin Time 154.3 SECONDS (23.9-36.7)
[2020-10-11 05:40] LABS: Basophils # 0.1 10^3/uL (0.0-0.1); Basophils % 0.9 %; Eosinophils # 0.3 10^3/uL (0.0-0.8); Eosinophils % 3.3 %; Hematocrit 46.5 % (37.0-47.0); Hemoglobin 14.3 g/dL (11.5-15.3); Lymphocytes # 1.5 10^3/uL (0.8-4.8); Lymphocytes % 15.4 %; Mean Corpuscular HGB Conc 30.8 g/dL (30.0-36.0); Mean Corpuscular Hemoglobin 29.6 pg (28.0-34.0); Mean Corpuscular Volume 96.3 fL (81-99); Mean Platelet Volume 10.5 fL (7.4-10.4); Monocytes # 1.1 10^3/uL (0.2-0.9); Monocytes % 11.4 %; Neutrophils # 6.62 10^3/uL (1.8-7.7); Neutrophils % 68.6 %; Nucleated Red Blood Cells % 0 %; Platelet Count 265 10^3/cmm (130-400); Red Blood Count 4.83 10^6/uL (4.1-5.3); Red Cell Distribution Width 14.9 % (12.1-15.1); White Blood Count 9.7 10^3/uL (4.0-10.0)
[2020-10-11] MEDS: ipratropium-albuterol 3 mL Neb INHALATION (05:48)
[2020-10-11 06:05] LABS: Partial Thromboplastin Time 55.2 SECONDS (23.9-36.7)
[2020-10-11 06:20] LABS: NT Pro B Type Natriuretic Pept 8797 pg/mL (0-125)
[2020-10-11] MEDS: FUROsemide 10 mg/mL SDV 4mL 40 MG IVP (06:22)
[2020-10-11] MEDS: metoprolol succinate ER (24 HR) 25 mg Tablet PO (06:23)
[2020-10-11] MEDS: amiodarone 200 mg Tablet 400 MG PO (06:23)
[2020-10-11 06:31] LABS: Alanine Aminotransferase 10 U/L (0-33); Albumin Level 3.6 g/dL (3.5-5.2); Alkaline Phosphatase 63 IU/L (35-105); Anion Gap 12.4 (5-19); Aspartate Amino Transferase 17 U/L (0-32); Blood Urea Nitrogen 8 mg/dL (8-23); Calcium 8.8 mg/dL (8.5-10.5); Carbon Dioxide 39 mmol/L (22-29); Chloride 95 mmol/L (98-107); Globulin 2.5 g/dL (1.3-4.6); Glomerular Filtration Rate 101.3 mL/min (90-130); Glucose 67 mg/dL (65-115); Magnesium 1.8 mg/dL (1.7-2.3); Osmolality Calculated 293 mOsm/kg (285-295); Potassium 3.4 mmol/L (3.5-5.1); Sodium 143 mmol/L (136-145); Total Bilirubin 0.7 mg/dL (0.15-1.2); Total Protein 6.1 g/dL (6.6-8.7)
[2020-10-11 06:39] LABS: INR 1.12 (0.8-1.2)
[2020-10-11 07:29] LABS: Partial Thromboplastin Time 32.7 SECONDS (23.9-36.7)
[2020-10-11] MEDS: aspirin 81 mg EC Tablet PO (08:31)
[2020-10-11] MEDS: potassium chloride ER 20 mEq Tablet 40 MEQ PO (08:31)
[2020-10-11] MEDS: oxyCODONE-APAP 5-325 mg Tablet 1 TAB PO ×2 (11:14→22:15)
[2020-10-11] MEDS: enoxaparin 60 mg/0.6 mL Syringe SUBCUT (11:15)
--- NOTE | 2020-10-11 11:52 | P.PN_ITS ---
Subjective Subjective: Interval history: Patient feels much better, urine output about 5 L since yesterday. Around 12 patient converted back to sinus bradycardia with rate in high 40s. Records were obtained from [facility] in [place] and reviewed in detail. It seems like patient had seen Dr. Monsivais in the month of August for persistent atrial fibrillation that has been bothering her since April of last year. She was tried on sotalol and failed it. She was scheduled for outpatient A. fib ablation and underwent cardiac CT on Tuesday and was found to have atrial fibrillation with rapid ventricular response and hence was admitted to the hospital. At home she was taking diltiazem prior to her hospitalization at [facility]. She was placed on digoxin followed by amiodarone drip briefly and from what I can gather she underwent cardiac catheterization as well as echocardiogram. #Bilateral venous duplex October 12: No evidence of DVT. Bilateral calf subcutaneous edema right greater than left. #Echocardiogram 04 October 2020: Normal left ventricular size, wall thickness with severely decreased left ventricular systolic function. Left ventricular ejection fraction estimated at 20-25% with no regional wall motion abnormalities and severe global hypokinesis. Abnormal diastolic function. Normal-sized right ventricle reduced right ventricular systolic function. Moderately dilated left atrium and mildly dilated right atrium. To moderate mitral valve regurgitation moderate tricuspid valve regurgitation. Mild pulmonary hypertension. #Cardiac catheterization 07 October 2020: Normal left main, small caliber LAD after takeoff of first diagonal with luminal irregularities. Luminal irregularities in circumflex and small caliber after takeoff of OM1. Mild disease in mid RCA otherwise small caliber vessel. Medications: Reviewed: Yes Medication Review Details: Current Medications Acetaminophen (Acetaminophen 325 Mg Tablet) 650 mg PO Q6H PRN PRN Reason: Mild/Mod Pain Or Temp >/= 101 Albuterol/Ipratropium (Ipratropium-Albuterol 3 Ml Neb) 3 ml INHALATION Q6H PRN PRN Reason: SHORTNESS OF BREATH Last Admin: 10/11/20 05:48 Dose: 3 ml Documented by: Amiodarone HCl (Amiodarone 200 Mg Tablet) 400 mg PO Q12H [facility] Last Admin: 10/11/20 06:23 Dose: 400 mg Documented by: Aspirin (Aspirin 81 Mg Ec Tablet) 81 mg PO DAILY [facility] Last Admin: 10/11/20 08:31 Dose: 81 mg Documented by: Atorvastatin Calcium (Atorvastatin 40 Mg Tablet) 40 mg PO Q24H [facility] Last Admin: 10/10/20 21:14 Dose: 40 mg Documented by: Bisacodyl (Bisacodyl 5 Mg Tablet) 10 mg PO DAILY PRN PRN Reason: CONSTIPATION Enoxaparin Sodium (Enoxaparin 60 Mg/0.6 Ml Syringe) 60 mg SUBCUT Q12H [facility] Last Admin: 10/11/20 11:15 Dose: 60 mg Documented by: Furosemide (Furosemide 10 Mg/Ml Sdv 4ml) 40 mg IVP Q12H [facility] Last Admin: 10/11/20 06:22 Dose: 40 mg Documented by: Diltiazem HCl 125 mg/ Sodium (Chloride) 125 mls @ 5 mls/hr IV .Q24H [facility]; Protocol Last Titration: 10/11/20 04:46 Dose: 0 mg/hr, 0 mls/hr Documented by: Metoprolol Succinate (Metoprolol Succinate Er (24 Hr) 25 Mg Tablet) 25 mg PO QAM [facility] Last Admin: 10/11/20 06:23 Dose: 25 mg Documented by: Naloxone HCl (Naloxone 0.4 Mg/Ml Sdv) 0.1 mg IVP Q2M PRN PRN Reason: OPIATERV Nitroglycerin (Nitroglycerin 0.4 Mg Sublingual Tablet) 0.4 mg SUBLINGUAL Q5M PRN PRN Reason: CHEST PAIN Ondansetron HCl (Ondansetron 2 Mg/Ml Sdv 2 Ml) 4 mg IVP Q8H PRN PRN Reason: vomiting, or N/V if npo Oxycodone/Acetaminophen (Oxycodone-Apap 5-325 Mg Tablet) 1 tab PO Q4H PRN PRN Reason: SEVERE PAIN Last Admin: 10/11/20 11:14 Dose: 1 tab Documented by: Vitals/I&O/Wt Last Vital Signs Temp 99.3 F 10/11/20 11:01 Pulse 99 10/11/20 11:01 Resp 20 H 10/11/20 11:14 BP 108/78 10/11/20 11:01 Pulse Ox 94 10/11/20 11:01 10/10/20 10/11/20 10/11/20 22:59 06:59 14:59 Intake Total 220 / 220 308.367 / 528.367 Output Total 500 / 500 5500 / 6000 1000 / 1000 Balance -280 / -280 -5191.633 / -5471.633 -1000 / -1000 Weight last 48 hrs Weight 130 lb 8 oz Weight 132 lb Physical Exam Narrative: EXAM NARRATIVE: GENERAL: Averagely built and averagely nourished in no acute distress HEENT: Extraocular movement intact. Pupils equal round reactive to light. No pallor or icterus. NECK: central trachea, Mild JVD. CARDIOVASCULAR SYSTEM: S1-S2 regular. No murmur rubs or gallops. RESPIRATORY SYSTEM: coarse breath sounds, decreased at bases. No wheezes rhonchi or rubs heard. +use of accessory muscles. tachypnea+ ABDOMEN: Soft, nontender and nondistended. Normal bowel sounds present. EXTREMITIES: No cyanosis or clubbing. 1+ bilateral pedal edema. No signs of chronic venous insufficiency. 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 No focal neurological deficits. SKIN: Normal turgor and temperature. No breakdown, rash or nail changes noted. PSYCH: Normal insight and judgment. Data : 10/11/20 03:00 10/11/20 03:00 Micro: Microbiology 10/10/20 16:35 Blood Culture - Preliminary Blood SPECIMEN COLLECTED 10/10/20 16:35 Blood Culture - Preliminary Blood SPECIMEN COLLECTED A&P Assessment and plan (1) NSTEMI (non-ST elevated myocardial infarction): Type II in setting of decompensated congestive heart failure and atrial fibrillation with rapid ventricle response -Recent cath with mild CAD in proximal RCA. -continue ASA, statin, metoprolol, NTG PRN and stop heparin gtt. -f/u on echo, Flat troponins and EKG -Records obtained from [facility] and reviewed. Status: Acute (2) Atrial fibrillation with RVR: [id number] least 2/9; 1 for female sex and 1 for CHF; s/p recent ablation. -continue metoprolol and started on amiodarone. Failed sotalol in the past -Patient has converted back to sinus bradycardia. -Transition back to Eliquis 5 mg twice daily this evening. Status: Acute (3) Acute decompensated heart failure: Acute on chronic combined congestive heart failure (LVEF 20 to 25% by echo done at [facility]) -Likely tachycardia induced cardiomyopathy. -Continue metoprolol succinate at 25 mg daily. Status: Acute Additional A&P Information Severe emphysema s/p bilateral lung reduction surgery in March 2015 Nonobstructive mild coronary artery disease by coronary angiogram in 2014 and 09/2020 Former smoker H/o non compliance Hypokalemia: Replaced Thank you for allowing me to participate in patient's care. Please fell free to call with questions or concerns. Attestations Medical Necessity Statement*: Patient needs hospital stay for management of congestive heart failure and atrial fibrillation Time Spent in Patient Care: Greater than 35 minutes (>than 50% of time spent in counselling and/or direct pt care on unit) . Coding Level of Care Code Acute Umbrella Cutter for Mariaelena Osorio Diagnoses NSTEMI (non-ST elevated myocardial infarction) I21.4 Atrial fibrillation with RVR I48.91 Acute decompensated heart failure I50.9
--- NOTE | 2020-10-11 12:42 | PM.PN ---
Subjective Subjective: Interval history: Patient was seen and examined this morning. Her shortness of breath has improved. Lower extremity swelling is going down. She had good urine output this morning,( 5 Ls ). Cardizem drip was stopped last night, as the heart rate was better controlled, though she was still in A. fib. At around 12 PM today she converted to sinus. Amiodarone dose was reduced to 200 mg po daily from 400 mg 3 times daily, as the patient had converted into sinus and the heart rate bradied down to 45-50s. She got morning dose of Lasix 40, as well as 20 of Lasix in the evening.Heparin drip was stopped.She has been switched back to Eliquis 5 mg every 12 hours daily. Patient has remained afebrile, other vitals and labs have been reviewed. Medications: Reviewed: Yes Medication Review Details: Current Medications Acetaminophen (Acetaminophen 325 Mg Tablet) 650 mg PO Q6H PRN PRN Reason: Mild/Mod Pain Or Temp >/= 101 Albuterol/Ipratropium (Ipratropium-Albuterol 3 Ml Neb) 3 ml INHALATION Q6H PRN PRN Reason: SHORTNESS OF BREATH Last Admin: 10/11/20 05:48 Dose: 3 ml Documented by: Amiodarone HCl (Amiodarone 200 Mg Tablet) 400 mg PO Q12H [facility] Last Admin: 10/11/20 06:23 Dose: 400 mg Documented by: Aspirin (Aspirin 81 Mg Ec Tablet) 81 mg PO DAILY [facility] Last Admin: 10/11/20 08:31 Dose: 81 mg Documented by: Atorvastatin Calcium (Atorvastatin 40 Mg Tablet) 40 mg PO Q24H [facility] Last Admin: 10/10/20 21:14 Dose: 40 mg Documented by: Bisacodyl (Bisacodyl 5 Mg Tablet) 10 mg PO DAILY PRN PRN Reason: CONSTIPATION Enoxaparin Sodium (Enoxaparin 60 Mg/0.6 Ml Syringe) 60 mg SUBCUT Q12H [facility] Last Admin: 10/11/20 11:15 Dose: 60 mg Documented by: Furosemide (Furosemide 10 Mg/Ml Sdv 4ml) 40 mg IVP Q12H [facility] Last Admin: 10/11/20 06:22 Dose: 40 mg Documented by: Diltiazem HCl 125 mg/ Sodium (Chloride) 125 mls @ 5 mls/hr IV .Q24H [facility]; Protocol Last Titration: 10/11/20 04:46 Dose: 0 mg/hr, 0 mls/hr Documented by: Metoprolol Succinate (Metoprolol Succinate Er (24 Hr) 25 Mg Tablet) 25 mg PO QAM [facility] Last Admin: 10/11/20 06:23 Dose: 25 mg Documented by: Naloxone HCl (Naloxone 0.4 Mg/Ml Sdv) 0.1 mg IVP Q2M PRN PRN Reason: OPIATERV Nitroglycerin (Nitroglycerin 0.4 Mg Sublingual Tablet) 0.4 mg SUBLINGUAL Q5M PRN PRN Reason: CHEST PAIN Ondansetron HCl (Ondansetron 2 Mg/Ml Sdv 2 Ml) 4 mg IVP Q8H PRN PRN Reason: vomiting, or N/V if npo Oxycodone/Acetaminophen (Oxycodone-Apap 5-325 Mg Tablet) 1 tab PO Q4H PRN PRN Reason: SEVERE PAIN Last Admin: 10/11/20 11:14 Dose: 1 tab Documented by: Vitals/I&O/Wt Last Vital Signs Temp 99.3 F 10/11/20 11:01 Pulse 99 10/11/20 11:01 Resp 20 H 10/11/20 11:14 BP 108/78 10/11/20 11:01 Pulse Ox 94 10/11/20 11:01 10/10/20 10/11/20 10/11/20 22:59 06:59 14:59 Intake Total 220 / 220 308.367 / 528.367 Output Total 500 / 500 5500 / 6000 1000 / 1000 Balance -280 / -280 -5191.633 / -5471.633 -1000 / -1000 Weight last 48 hrs Weight 59.194 kg Weight 59.874 kg Physical Exam Const: COMMON NORMALS: patient oriented x3 HENMT: COMMON NORMALS: normocephalic and atraumatic HEAD & SCALP: normocephalic and atraumatic Resp: OTHER: Bilateral fine crackles present in both the lung guerrero has improved.Diminished air entry in both lung guerrero Cardio: COMMON NORMALS: Peripheral pulses 2+ throughout RHYTHM: abnormal rhythm PERIPHERAL PULSES: Peripheral pulses 2+ throughout OTHER: S1-S2 variable intensity. No murmur, rub or gallop GI: COMMON NORMALS: Normal to inspection, nondistended, normoactive bowel sounds present, Soft to palpation, non-tender, No hepatosplenomegaly present and no masses AUSCULTATION: Yes normoactive bowel sounds PALPATION: Yes Soft to palpation and Yes No hepatosplenomegaly present RECTAL EXAM: deferred Extremity: NARRATIVE EXTREMITY EXAM: 2 + b/l l/e pitting edema Neuro: COMMON NORMALS: patient oriented x3 Data : 10/11/20 03:00 10/11/20 03:00 Micro: Microbiology 10/10/20 16:35 Blood Culture - Preliminary Blood SPECIMEN COLLECTED 10/10/20 16:35 Blood Culture - Preliminary Blood SPECIMEN COLLECTED A&P Assessment and plan (1) Acute decompensated heart failure: Acute on chronic combined congestive heart failure (LVEF 20 to 25% by echo done at [facility]) -Likely TICM.Nonobstructive mild coronary artery disease by coronary angiogram in 2014 and 09/2020 -metoprolol succinate at 25 mg daily. Lasix 40 every 12Hs IV daily has been held. Daily weight Intake output charting Lisinopril 2.5 mg p.o. daily 2D echo: Status: Acute (2) Atrial fibrillation with RVR: Initially on Cardizem drip. metoprolol succinate 25 mg p.o. daily Amiodarone 200 mg p.o. every 24h Eliquis 5 mg q12 h daily Status: Acute (3) NSTEMI (non-ST elevated myocardial infarction): Elevated troponin, 2/2 type II NM.A. fib with RVR as well as CHF is contributing to the troponin leak, Aspirin 81 mg p.o. Atorvastatin 40 mg p.o. day Status: Acute (4) S/P ablation of atrial fibrillation: Records were obtained from [facility] in [place] and reviewed in detail. It seems like patient had seen Dr. Monsivais in the month of August for persistent atrial fibrillation that has been bothering her since April of last year. She was tried on sotalol and failed it. She was scheduled for outpatient A. fib ablation and underwent cardiac CT on Tuesday and was found to have atrial fibrillation with rapid ventricular response and hence was admitted to the hospital. At home she was taking diltiazem prior to her hospitalization at [facility]. She was placed on digoxin followed by amiodarone drip briefly and from what I can gather she underwent cardiac catheterization as well as echocardiogram. #Bilateral venous duplex October 12: No evidence of DVT. Bilateral calf subcutaneous edema right greater than left. #Echocardiogram 04 October 2020: Normal left ventricular size, wall thickness with severely decreased left ventricular systolic function. Left ventricular ejection fraction estimated at 20-25% with no regional wall motion abnormalities and severe global hypokinesis. Abnormal diastolic function. Normal-sized right ventricle reduced right ventricular systolic function. Moderately dilated left atrium and mildly dilated right atrium. To moderate mitral valve regurgitation moderate tricuspid valve regurgitation. Mild pulmonary hypertension. #Cardiac catheterization 07 October 2020: Normal left main, small caliber LAD after takeoff of first diagonal with luminal irregularities. Luminal irregularities in circumflex and small caliber after takeoff of OM1. Mild disease in mid RCA otherwise small caliber vessel. Status: Acute Attestations Medical Necessity Statement*: Patient needs to be in hospital for management of A. fib with RVR, decompensated systolic heart failure. 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
--- NOTE | 2020-10-11 15:45 | PC.NURSE ---
AFIB TO SINUS RHYTHM WHILE DR. AREVALO AND CLAIM TAKER WERE PRESENT IN THE PATIENT'S ROOM AT 1200, PATIENT CONVERTED TO SINUS BRADYCARDIA PER ONCOLOGY NAVIGATOR. RHYTHM NOTED TO HAVE INVERTED TWAVES. DR. PARIKH PRESENT AT [facility] AND NOTIFIED OF CONVERSION. NEW ORDERS TO FOLLOW. WILL CONTINUE TO MONITOR PATIENT.
[2020-10-11] MEDS: FUROsemide 10 mg/mL SDV 2mL 20 MG IVP (17:59)
[2020-10-11] MEDS: atorvastatin 40 mg Tablet PO (17:59)
--- NOTE | 2020-10-11 18:44 | USR_ITS ---
PROCEDURE INFORMATION: Exam: US Duplex Lower Extremity Veins, Bilateral Exam date and time: 10/11/2020 7:30 AM Age: 60 years old Clinical indication: Swelling (edema) of limb; Lower extremity, bilateral; Prior surgery; Additional info: Dvt TECHNIQUE: Imaging protocol: Real-time duplex ultrasound of the extremities with 2-D oliveira scale, color Doppler flow and spectral waveform analysis with image documentation. Complete exam focused on the bilateral lower extremity veins. COMPARISON: No relevant prior studies available. FINDINGS: Right deep veins: Unremarkable. The common femoral, femoral, proximal profunda femoral and popliteal veins are patent without thrombus. Normal Doppler waveforms. Normal compressibility and/or augmentation response. Right superficial veins: Saphenofemoral junction is patent without thrombus. Left deep veins: Unremarkable. The common femoral, femoral, proximal profunda femoral and popliteal veins are patent without thrombus. Normal Doppler waveforms. Normal compressibility and/or augmentation response. Left superficial veins: Saphenofemoral junction is patent without thrombus. Soft tissues: Unremarkable. US/CV venous duplex [facility] [id number] IMPRESSION: No evidence of deep vein thrombosis.
--- NOTE | 2020-10-11 18:44 | USCV_ITS ---
Blanca Ramirez Age: 60 Gender: F : 1960 Exam Date: 10/11/2020 07:12 Ordering Phys: Rickie Simons MD Technologist: Nereida Valdez Exam Location[place] [facility] [place] Indication: sob BP: 123 / 78 HR: 81 Rhythm: Atrial fibrillation Technical Quality: Adequate MEASUREMENTS (Male / Female) Normal Values 2D ECHO LV Diastolic Diameter PLAX 4.4 cm 4.2 - 5.9 / 3.9 - 5.3 cm LV Systolic Diameter PLAX 4.0 cm IVS Diastolic Thickness 1.2 cm 0.6 - 1.0 / 0.6 - 0.9 cm IVS Systolic Thickness 1.3 cm LVPW Diastolic Thickness 1.6 cm 0.6 - 1.0 / 0.6 - 0.9 cm LVPW Systolic Thickness 1.8 cm RV Chamber Size 2.9 cm LVOT Diameter 2.0 cm LV Ejection Fraction 2D Teich 32.1 % LV Ejection Fraction MOD 2C 25.4 % LV Ejection Fraction 2C AL 22.7 % LA Diameter 3.4 cm LA Width 3.6 cm LA Height 4.9 cm RA Width 3.8 cm RA Height 4.5 cm Aorta at Sinotubular Diameter 2.7 cm M-MODE LV Diastolic Diameter MM 4.5 cm 4.2 - 5.9 / 3.9 - 5.3 cm LV Systolic Diameter MM 3.5 cm LV Ejection Fraction MM Teich 44.7 % IVS Diastolic Thickness MM 1.5 cm 0.6 - 1.0 / 0.6 - 0.9 cm IVS Systolic Thickness MM 1.5 cm LVPW Diastolic Thickness MM 1.1 cm 0.6 - 1.0 / 0.6 - 0.9 cm LVPW Systolic Thickness MM 1.7 cm Aortic Annulus Diameter 3.1 cm LA Ao Ratio MM 1.1 MV E Point Septal Separation 0.9 cm DOPPLER AV Peak Velocity 90.0 cm/s LVOT Peak Velocity 57.0 cm/s AV Area Cont Eq vti 2.1 cm squared AV Area Cont Eq pk 2.0 cm squared MV Area PHT 9.6 cm squared MV E' Velocity 72.0 cm/s TR Peak Velocity 250.5 cm/s TR Peak Gradient 25.1 mmHg Right Atrial Pressure 3.0 mmHg Pulmonary Artery Systolic Pressu 28.1 mmHg PV Peak Velocity 41.0 cm/s RV Acceleration Time 0.1 s RV Ejection Time 0.2 s RV AcT/ET 0.5 FINDINGS Left Ventricle Normal left ventricular size. Severely decreased left ventricular systolic function. Left ventricular ejection fraction is estimated at 25 % visually and 29% by modified biplane method. Severe global hypokinesis with relative sparing of basal inferolateral wall. Abnormal diastolic function. Right Ventricle Normal right ventricular size with mildly decreased right ventricular systolic function. Tricuspid valve regurgitant jet is inadequate for estimation of right ventricular systolic pressure. Right Atrium Mildly increased right atrial size. Right atrial pressure estimated at 8 mmHg. Left Atrium Mildly increased left atrial size. Mitral Valve Thickened mitral valve. Mild bileaflet mitral valve prolapse (posterior more than anterior). No mitral valve stenosis. Mild- moderate mitral valve regurgitation. Aortic Valve Structurally normal trileaflet aortic valve. No aortic valve stenosis. No aortic valve regurgitation. Tricuspid Valve Structurally normal tricuspid valve. Mild tricuspid valve regurgitation. Pulmonic Valve Pulmonic valve not well visualized. No pulmonary valve stenosis. Mild pulmonary valve regurgitation. Pericardium Trivial pericardial effusion. Aorta Normal size aortic root and proximal ascending aorta. Mildly dilated inferior vena cava with normal respiratory variation. CONCLUSIONS 1. Normal left ventricle size. Severely decreased left ventricular systolic function. Left ventricular ejection fraction is estimated at 25 % visually and 29% by modified biplane method. Severe global hypokinesis with relative sparing of basal inferolateral wall. Abnormal diastolic function. 2. Normal right ventricular size with mildly decreased right ventricular systolic function. 3. Mild bileaflet mitral valve prolapse (posterior more than anterior). No mitral valve stenosis. Mild-moderate mitral valve regurgitation. 4. Mild tricuspid valve regurgitation. 5. When compared to study dated 11/17/2018, left ventricular systolic function has decreased. Elizabeth Posey MD (Electronically Signed) Final Date: 12 October 2020 12:30 S
--- NOTE | 2020-10-11 19:43 | ECG_ITS ---
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 Measurements Intervals [place] Rate: 52 P: 65 TX: 158 QRS: 110 QRSD: 89 T: 242 QT: 445 QTc: 417 Interpretive Statements SINUS BRADYCARDIA MARKED RIGHT AXIS DEVIATION [QRS AXIS > 100] LOW QRS VOLTAGE IN EXTREMITY LEADS [QRS DEFLECTION < 0.5 mV IN LIMB LEADS] ST DEVIATION AND MARKED T-WAVE ABNORMALITY, CONSIDER ANTEROLATERAL ISCHEMIA ST DEVIATION AND MODERATE T-WAVE ABNORMALITY, CONSIDER INFERIOR ISCHEMIA Compared to ECG 10/10/2020 18:48:15 Low QRS voltage now present Atrial fibrillation no longer present Myocardial infarct finding no longer present T-wave abnormality still present Possible ischemia still present Electronically Signed On 10-12-2020 18:40:25 PETROLOGIST by Elizabeth Posey M.D. [id number] f
[2020-10-11] MEDS: apixaban 5 mg Tablet PO (22:15)
[2020-10-12] VITALS (8 sets, daily range): BP systolic 114–127; BP diastolic 67–74; PULSE 47–50; RESP 13–16; TEMP 36.4–36.8; O2SAT 88–99
[2020-10-12 06:21] LABS: Basophils # 0.1 10^3/uL (0.0-0.1); Basophils % 0.9 %; Eosinophils # 0.3 10^3/uL (0.0-0.8); Eosinophils % 3.8 %; Hematocrit 40.5 % (37.0-47.0); Hemoglobin 12.5 g/dL (11.5-15.3); Lymphocytes # 1.7 10^3/uL (0.8-4.8); Lymphocytes % 26.4 %; Mean Corpuscular HGB Conc 30.9 g/dL (30.0-36.0); Mean Corpuscular Hemoglobin 30.6 pg (28.0-34.0); Mean Corpuscular Volume 99.3 fL (81-99); Monocytes # 0.8 10^3/uL (0.2-0.9); Monocytes % 11.8 %; Neutrophils # 3.72 10^3/uL (1.8-7.7); Neutrophils % 56.8 %; Nucleated Red Blood Cells % 0 %; Platelet Count 217 10^3/cmm (130-400); Red Blood Count 4.08 10^6/uL (4.1-5.3); Red Cell Distribution Width 14.9 % (12.1-15.1); White Blood Count 6.6 10^3/uL (4.0-10.0)
[2020-10-12 06:51] LABS: INR 1.31 (0.8-1.2)
[2020-10-12 06:52] LABS: Partial Thromboplastin Time 40.6 SECONDS (23.9-36.7)
[2020-10-12 07:16] LABS: Alanine Aminotransferase 8 U/L (0-33); Albumin Level 3.1 g/dL (3.5-5.2); Alkaline Phosphatase 49 IU/L (35-105); Anion Gap 8.4 (5-19); Aspartate Amino Transferase 13 U/L (0-32); Blood Urea Nitrogen 12 mg/dL (8-23); Calcium 8.2 mg/dL (8.5-10.5); Carbon Dioxide 40 mmol/L (22-29); Chloride 96 mmol/L (98-107); Globulin 1.9 g/dL (1.3-4.6); Glomerular Filtration Rate 63.4 mL/min (90-130); Glucose 79 mg/dL (65-115); Magnesium 1.7 mg/dL (1.7-2.3); Osmolality Calculated 291 mOsm/kg (285-295); Potassium 3.4 mmol/L (3.5-5.1); Sodium 141 mmol/L (136-145); T3 Free 1.4 PG/ML (2.0-4.4); Thyroid Stimulating Hormone 7.08 uIU/mL (0.27-4.20); Total Bilirubin 0.7 mg/dL (0.15-1.2)
--- NOTE | 2020-10-12 08:36 | P.PN_ITS ---
Subjective Subjective: Interval history: Remains in SB, UO 1900 ml. breathing has improved and is near normal. Medications: Reviewed: Yes Medication Review Details: Current Medications Acetaminophen (Acetaminophen 325 Mg Tablet) 650 mg PO Q6H PRN PRN Reason: Mild/Mod Pain Or Temp >/= 101 Albuterol/Ipratropium (Ipratropium-Albuterol 3 Ml Neb) 3 ml INHALATION Q6H PRN PRN Reason: SHORTNESS OF BREATH Last Admin: 10/11/20 05:48 Dose: 3 ml Documented by: Amiodarone HCl (Amiodarone 200 Mg Tablet) 200 mg PO DAILY [facility] Apixaban (Apixaban 5 Mg Tablet) 5 mg PO BID@0900,2100 [facility] Last Admin: 10/11/20 22:15 Dose: 5 mg Documented by: Aspirin (Aspirin 81 Mg Ec Tablet) 81 mg PO DAILY [facility] Last Admin: 10/11/20 08:31 Dose: 81 mg Documented by: Atorvastatin Calcium (Atorvastatin 40 Mg Tablet) 40 mg PO Q24H [facility] Last Admin: 10/11/20 17:59 Dose: 40 mg Documented by: Bisacodyl (Bisacodyl 5 Mg Tablet) 10 mg PO DAILY PRN PRN Reason: CONSTIPATION Furosemide (Furosemide 40 Mg Tablet) 40 mg PO DAILY@0800 [facility] Losartan Potassium (Losartan 50 Mg Tablet) 25 mg PO DAILY [facility] Metoprolol Succinate (Metoprolol Succinate Er (24 Hr) 25 Mg Tablet) 25 mg PO QAM [facility] Last Admin: 10/11/20 06:23 Dose: 25 mg Documented by: Naloxone HCl (Naloxone 0.4 Mg/Ml Sdv) 0.1 mg IVP Q2M PRN PRN Reason: OPIATERV Nitroglycerin (Nitroglycerin 0.4 Mg Sublingual Tablet) 0.4 mg SUBLINGUAL Q5M PRN PRN Reason: CHEST PAIN Ondansetron HCl (Ondansetron 2 Mg/Ml Sdv 2 Ml) 4 mg IVP Q8H PRN PRN Reason: vomiting, or N/V if npo Oxycodone/Acetaminophen (Oxycodone-Apap 5-325 Mg Tablet) 1 tab PO Q4H PRN PRN Reason: SEVERE PAIN Last Admin: 10/11/20 22:15 Dose: 1 tab Documented by: Potassium Chloride (Potassium Chloride Er 20 Meq Tablet) 20 meq PO DAILY [facility] Potassium Chloride (Potassium Chloride Er 20 Meq Tablet) 20 meq PO ONCE ONE Stop: 10/12/20 08:35 Zolpidem Tartrate (Zolpidem 10 Mg Tablet) 10 mg PO BEDTIME PRN PRN Reason: SLEEP Last Admin: 10/11/20 22:14 Dose: 10 mg Documented by: Vitals/I&O/Wt Last Vital Signs Temp 97.6 F 10/12/20 07:14 Pulse 50 L 10/12/20 08:15 Resp 16 10/12/20 08:15 BP 119/67 10/12/20 07:14 Pulse Ox 88 L 10/12/20 08:15 10/11/20 10/12/20 10/12/20 22:59 06:59 14:59 Intake Total 270 / 270 Output Total 750 / 1750 150 / 1900 Balance -480 / -1480 -150 / -1630 Weight last 48 hrs Weight 127 lb 11.2 oz Weight 130 lb 8 oz Weight 132 lb Physical Exam Narrative: EXAM NARRATIVE: GENERAL: Averagely built and averagely nourished in no acute distress HEENT: Extraocular movement intact. Pupils equal round reactive to light. No pallor or icterus. NECK: central trachea, Mild JVD. CARDIOVASCULAR SYSTEM: S1-S2 regular. No murmur rubs or gallops. RESPIRATORY SYSTEM: coarse breath sounds, decreased at bases. No wheezes rhonchi or rubs heard. ABDOMEN: Soft, nontender and nondistended. Normal bowel sounds present. EXTREMITIES: No cyanosis or clubbing. No edema. No signs of chronic venous insufficiency. 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 No focal neurological deficits. SKIN: Normal turgor and temperature. No breakdown, rash or nail changes noted. PSYCH: Normal insight and judgment. Data : 10/12/20 04:46 10/12/20 04:46 Micro: Microbiology 10/10/20 16:35 Blood Culture - Preliminary Blood NEGATIVE TO DATE 10/10/20 16:35 Blood Culture - Preliminary Blood SPECIMEN COLLECTED A&P Assessment and plan (1) Acute decompensated heart failure: Acute on chronic combined congestive heart failure (LVEF 20 to 25% by echo done at [facility]) -Tachycardia induced cardiomyopathy. Diuresed ~8 L LOS and -5 lb -Hold metoprolol succinate 25 mg daily for now . stop IV lasix and start on lasix 40 mg daily. -start on low dose losartan (May transition to entresto as outpatient). -Stable to be discharged home on lasix 40 mg daily, Losartan 25 mg daily, potassium 20 meq daily. -F/U in 1 week with me in [facility]. -BMP, Mg, BNP in 1 week in [facility] -BP/HR for twice a day. Status: Acute (2) Atrial fibrillation with RVR: [id number] least 2/9; 1 for female sex and 1 for CHF; s/p recent abl ation (recent ablation report unavailable). - Failed sotalol in the past. no on amiodarone -Patient has converted back to sinus bradycardia. -Transitioned back to Eliquis 5 mg twice daily. -continue amiodarone 200 mg daily for at least 3 months. -stop metoprolol. Status: Acute (3) NSTEMI (non-ST elevated myocardial infarction): Type II in setting of decompensated congestive heart failure and atrial fibrillation with rapid ventricle response -Recent cath with mild CAD in proximal RCA. -continue ASA, statin, metoprolol, NTG PRN and stop heparin gtt. -f/u echo with LVEF=25%, Flat troponins and EKG Records were obtained from [facility] in [place] and reviewed in detail. It seems like patient had seen Dr. Monsivais in the month of August for persistent atrial fibrillation that has been bothering her since April of last year. She was tried on sotalol and failed it. She was scheduled for outpatient A. fib ablation and underwent cardiac CT on Tuesday and was found to have atrial fibrillation with rapid ventricular response and hence was admitted to the hospital. At home she was taking diltiazem prior to her hospitalization at [facility]. She was placed on digoxin followed by amiodarone drip briefly and from what I can gather she underwent cardiac catheterization as well as echocardiogram. #Bilateral venous duplex October 12: No evidence of DVT. Bilateral calf subcutaneous edema right greater than left. #Echocardiogram 04 October 2020: Normal left ventricular size, wall thickness with severely decreased left ventricular systolic function. Left ventricular ejection fraction estimated at 20-25% with no regional wall motion abnormalities and severe global hypokinesis. Abnormal diastolic function. Normal-sized right ventricle reduced right ventricular systolic function. Moderately dilated left atrium and mildly dilated right atrium. To moderate mitral valve regurgitation moderate tricuspid valve regurgitation. Mild pulmonary hypertension. #Cardiac catheterization 07 October 2020: Normal left main, small caliber LAD after takeoff of first diagonal with luminal irregularities. Luminal irregularities in circumflex and small caliber after takeoff of OM1. Mild disease in mid RCA otherwise small caliber vessel. -No further testing warranted. -continue ASA and statin Status: Acute Additional A&P Information Severe emphysema s/p bilateral lung reduction surgery in March 2015 Nonobstructive mild coronary artery disease by coronary angiogram in 2014 and 09/2020 Former smoker H/o non compliance Hypokalemia: Replaced Thank you for allowing me to participate in patient's care. Please fell free to call with questions or concerns. Attestations Medical Necessity Statement*: Patient needs hospital stay for management of congestive heart failure and atrial fibrillation Time Spent in Patient Care: Greater than 35 minutes (>than 50% of time spent in counselling and/or direct pt care on unit) . 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
[2020-10-12] MEDS: aspirin 81 mg EC Tablet PO (09:17)
[2020-10-12] MEDS: potassium chloride ER 20 mEq Tablet PO ×3 (09:17→09:21)
[2020-10-12] MEDS: amiodarone 200 mg Tablet PO (09:17)
[2020-10-12] MEDS: apixaban 5 mg Tablet PO (09:17)
[2020-10-12] MEDS: losartan 50 mg Tablet 25 MG PO (09:18)
[2020-10-12] MEDS: FUROsemide 40 mg Tablet PO (09:20)
--- NOTE | 2020-10-12 10:12 | PC.CHAP ---
Pastoral Care Encounter/Spiritual Assessment Type of Contact [] Declined aviation manager visit [] Patient/Family/Request visit [] Outpatient visit [x] Follow-up visit [] Physician referral [] Code/Alert [] Routine visit [] Staff referral [] Actively dying [] Patient sleeping [] Family support [] [] Out of room [] Palliative care [] [] Receiving care in room [] Pre-surgical visit [] Trauma [] Long length of stay [] ICU visit [] Other: Relational/Emotional Strength [] Patient feels connected with others/family/visitors/staff [] Distress [] Loneliness/isolation [] Abandonment Spirituality of Patient [x] Person of Britta [] Attends [employer] of their Britta [] Believes in Prayer [] Reads Bible or Baptism materials [] There are Spiritual issues to be addressed Data Integrity Consultant Interventions [x] Prayer [x] Active listening [x] Non-anxious presence [x] Spiritual/emotional support [] Crisis/trauma care [] Spiritual counseling [] Bereavement support [] Provided bereavement packet [] Provided Bible/devotional materials [] Provided toy/stuffed animal, coloring book to patient or family member [] Provided Communion [] Anointing/Providence [] Salvation [x] Completed spiritual assessment [] Other: Impact on Illness or Injury [] Angry [] Fearful [] Anxious [] Often cries [] Exhaustion [] Unable to work [] Unable to attend hindu [] Unable to walk/stand [] Unable to read [] Unable to drive [] Unable to eat/drink [] Unable to sleep [] Unable to be with family [] Patient intubated [] Other: Summary Chaplains prayed with Patient. Time spent with patient 7 minutes.
[2020-10-12] MEDS: oxyCODONE-APAP 5-325 mg Tablet 1 TAB PO (13:19)
--- NOTE | 2020-10-12 13:48 | P.DS_ITS ---
Discharge Providers Date of Admission: 10/10/20 17:47 Date of Discharge: October 12, 2020 Attending Provider at Admission: Rickie Simons MD Attending Provider at Discharge: Rickie Simons MD Primary Care Provider: Anay Morillo MD Diagnoses at Discharge Discharge Diagnosis (1) Acute decompensated heart failure: Status: Resolved (2) Atrial fibrillation with RVR: Status: Resolved (3) NSTEMI (non-ST elevated myocardial infarction): Status: Resolved Permanent problem details: Type II NH Reason for Visit Reason for Visit: Needing fluids drained again, recently released Hospital Course Hospital Course 60 year old female with past medical history of A. fib status post a week back by Dr. Cheney at the [place],h/o bilateral upper lobe lung reduction surgery, came in with chief complaint of worsening shortness of breath as well as worsening bilateral lower extremity swelling, as well as central chest tightness, symptoms have got worsened in the last for 3 days. Blanca Ramirez is a 60 year old female with past medical history of A. fib status post a week back by Dr. Cheney at the [place],h/o bilateral upper lobe lung reduction surgery, came in with chief complaint of worsening shortness of breath as well as worsening bilateral lower extremity swelling, as well as central chest tightness, symptoms have got worsened in the last for 3 days, it has got worsened to the point that she cannot lie flat, she is also complaining of PND. Upon arrival in the ER she was worked up for above-mentioned, complaint. EKG: A. fib with RVR with rate in 110s to 120s. CT angio chest: Cannot rule out small volume pulmonary artery embolism in the right upper lobe.Bilateral small pleural effusion.Features of advanced centrilobular emphysema throughout the lungs. Pertinent labs: Troponin: Baseline: 458, 2-hour:466 2-hour delta:8.7 6-hour:418 6H D : -39.7 proBNP: 6134. ECA medications: Lasix 40 IV x1 dose, heparin drip, Cardizem 5 mg I.V * 1 Dose , Cardizem drip. During this hospital stay she was managed for A. fib with RVR, as well as decompensated systolic heart failure secondary tachycardia induced ca rdiomyopathy. Initially she was on Cardizem drip, along with 400 mg every 12 hours amiodarone, as well as 25 mg metoprolol tartrate, she converted to normal sinus rhythm, heart rate was was as low as 47, but she was asymptomatic, at that point in time, metoprolol tartrate was withdrawn, she was continued on amiodarone 200 mg p.o. daily. She was continued on Eliquis 5 MG Q12 H DAILY. For decompensated heart failure, she responded pretty well to 40 twice daily Lasix IV, with good urine output, significant reduction in the bilateral lower extremities swelling, marked improvement in shortness of breath. She was later switched to 40 p.o. Lasix daily, as well as potassium supplements. For elevated troponin on admission, she was managed for type II NH likely secondary to troponin leak from A. fib and CHF, though at the time of admission she was placed on heparin drip which was later discontinued.She had a cardiac cath done recently at [facility], which showed nonobstructive coronary artery. She is a status post ablation of atrial fib: Records were obtained from [facility] in [place] and reviewed in detail. It seems like patient had seen Dr. Monsivais in the month of August for persistent atrial fibrillation that has been bothering her since April of last year. She was tried on sotalol and failed it. She was scheduled for outpatient A. fib ablation and underwent cardiac CT on Tuesday and was found to have atrial fibrillation with rapid ventricular response and hence was admitted to the hospital. At home she was taking diltiazem prior to her hospitalization at [facility]. She was placed on digoxin followed by amiodarone drip briefly and from what I can gather she underwent cardiac catheterization as well as echocardiogram. #Bilateral venous duplex October 12: No evidence of DVT. Bilateral calf subcutaneous edema right greater than left. #Echocardiogram 04 October 2020: Normal left ventricular size, wall thickness with severely decreased left ventricular systolic function. Left ventricular ejection fraction estimated at 20-25% with no regional wall motion abnormalities and severe global hypokinesis. Abnormal diastolic function. Normal-sized right ventricle reduced right ventricular systolic function. Moderately dilated left atrium and mildly dilated right atrium. To moderate mitral valve regurgitation moderate tricuspid valve regurgitation. Mild pulmonary hypertension. #Cardiac catheterization 07 October 2020: Normal left main, small caliber LAD after takeoff of first diagonal with luminal irregularities. Luminal irregularities in circumflex and small caliber after takeoff of OM1. Mild disease in mid RCA otherwise small caliber vessel. 2 D Echocardiogram: 10/11/2020;Normal left ventricle size. Severely decreased left ventricular systolic function. Left ventricular ejection fraction is estimated at 25 % visually and 29% by modified biplane method. Severe global hypokinesis with relative sparing of basal inferolateral wall. Abnormal fabiano stolic function. Normal right ventricular size with mildly decreased right ventricular systolic function. Mild bileaflet mitral valve prolapse (posterior more than anterior). No mitral valve stenosis. Mild-moderate mitral valve regurgitation. Mild tricuspid valve regurgitation. When compared to study dated 11/17/2018, left ventricular systolic function has decreased. Patient responded well to the above medical management and she is being discharged in stable condition. She will continue to follow Dr. Parikh as an outpatient. Physical Exam 2 Const: COMMON NORMALS: patient oriented x3 HENMT: COMMON NORMALS: normocephalic and atraumatic HEAD & SCALP: normocephalic and atraumatic Resp: OTHER: B/L Clear lung guerrero Diminished air entry in both lung guerrero Cardio: COMMON NORMALS: Peripheral pulses 2+ throughout RHYTHM: abnormal rhythm PERIPHERAL PULSES: Peripheral pulses 2+ throughout OTHER: S1-S2 variable intensity. No murmur, rub or gallop GI: COMMON NORMALS: Normal to inspection, nondistended, normoactive bowel sounds present, Soft to palpation, non-tender, No hepatosplenomegaly present and no masses AUSCULTATION: Yes normoactive bowel sounds PALPATION: Yes Soft to palpation and Yes No hepatosplenomegaly present RECTAL EXAM: deferred Extremity: NARRATIVE EXTREMITY EXAM: 1 + b/l l/e pitting edema Neuro: COMMON NORMALS: patient oriented x3 Discharge Data Data Completed and Pending: Completed Studies During Hospitalization Category Date Time Status CT angio chest PE protcl [id number] Urge nt Cat Scan 10/10/20 16:11 Completed XR chest 1V lynn ble [id number] Urgent Exams 10/10/20 15:46 Completed CV echo complete* [id number] Routine Ultrasound 10/11/20 18:44 [place] [id number] Routin e Ultrasound 10/11/20 18:44 Completed Pending at discharge Category Date Time Status Blood Culture Sta t Lab 10/10/20 16:35 Results Complete Blood Co unt w/Auto AM LABS Lab 10/13/20 04:00 Ordered Comprehensive Met abolic Panel AM LA BS Lab 10/13/20 04:00 Ordered Magnesium AM LABS Lab 10/13/20 04:00 Ordered Partial Thrombopl astin Time AM LABS Lab 10/13/20 04:00 Ordered Prothrombin Time INR AM LABS Lab 10/13/20 04:00 Ordered T3 Total Routine Lab 10/12/20 04:46 Received Labs from last 24 hours 10/12/20 10/12/20 10/12/20 04:46 04:46 04:46 WBC RBC Hgb Hct MCV MCH MCHC RDW Plt Count MPV Neut % (Auto) Lymph % (Auto) [place] % (Auto) Eos % (Auto) Baso % (Auto) Neut # (Auto) Lymph # (Auto) [place] # (Auto) Eos # (Auto) Baso # (Auto) Nucleated RBC % (a uto) Nucleated RBCs # PT 16.70 H INR 1.31 H APTT 40.6 H Sodium 141 Potassium 3.4 L Chloride 96 L Carbon Dioxide 40 H Anion Gap 8.4 BUN 12 Creatinine 0.9 GFR Calculation 63.4 L Glucose 79 Calculated Osmolal ity 291 Calcium 8.2 L Magnesium 1.7 Total Bilirubin 0.7 AST 13 ALT 8 Alkaline Phosphata se 49 Total Protein 5.0 L Albumin 3.1 L Globulin 1.9 TSH 7.08 H Free T4 0.90 Free T3 1.4 L Total T3 Pending 10/12/20 04:46 WBC 6.6 RBC 4.08 L Hgb 12.5 Hct 40.5 MCV 99.3 H MCH 30.6 MCHC 30.9 RDW 14.9 Plt Count 217 MPV 10.0 Neut % (Auto) 56.8 Lymph % (Auto) 26.4 [place] % (Auto) 11.8 Eos % (Auto) 3.8 Baso % (Auto) 0.9 Neut # (Auto) 3.72 Lymph # (Auto) 1.7 [place] # (Auto) 0.8 Eos # (Auto) 0.3 Baso # (Auto) 0.1 Nucleated RBC % (a uto) 0 Nucleated RBCs # 0.0 PT INR APTT Sodium Potassium Chloride Carbon Dioxide Anion Gap BUN Creatinine GFR Calculation Glucose Calculated Osmolal ity Calcium Magnesium Total Bilirubin AST ALT Alkaline Phosphata se Total Protein Albumin Globulin TSH Free T4 Free T3 Total T3 Vitals: Last Vital Signs Temp 98.2 F 10/12/20 11:15 Pulse 49 L 02/21/21 11:15 Resp 16 10/12/20 13:19 BP 127/74 10/12/20 11:15 Pulse Ox 94 10/12/20 13:19 Discharge Plan Discharge Patient Disposition: Home Condition: Stable Prescriptions: New Pacerone 200 mg Tablet 200 mg PO DAILY 30 Days RF: 3 aspirin 81 mg Tablet,Delayed Release (Dr/Ec) 81 mg PO DAILY Qty: 30 RF: 0 losartan 50 mg Tablet 25 mg PO DAILY 30 Days RF: 0 furosemide 40 mg Tablet 40 mg PO DAILY@0800 30 Days RF: 3 atorvastatin 40 mg Tablet 40 mg PO Q24H 30 Days Qty: 30 RF: 3 Klor-Con M20 20 mEq Tablet,Er Particles/Crystals 20 meq PO DAILY 30 Days RF: 0 Continued Tylenol Extra Strength 500 mg Tablet 1,000 mg PO PRN RF: 0 hydrocodone-acetaminophen 7.5-325 mg tablet 1 - 2 tab PO Q4H MDD 5 TABS PRN (Reason: Pain) RF: 0 Eliquis 5 mg tablet 5 mg PO BID RF: 0 Discontinued metoprolol succinate 25 mg tablet extended release 24 hr 25 mg PO QAM RF: 0 Discharge Orders: Discharge Order (Routine); Ordered 10/12/20 Ordered By: Rickie Simons Referrals: Elizabeth Parikh MD [Physician] - 1 week ([facility] WILL CALL YOU WITH A FOLLOW UP APPOINTMENT WITH DR. PARIKH. IF YOU DO NOT HEAR BACK FROM THEM BY TUESDAY PLEASE CALL [phone].) Discharge Diet: Cardiac Discharge Activity: Resume usual activity Patient Instructions: Furosemide (By mouth), Potassium Chloride (By mouth), Aspirin (By mouth), Amiodarone (By mouth), Losartan (By mouth), Atorvastatin (By mouth), Myocardial Infarction (DC), Heart Failure (DC), Atrial Fibrillation (DC), Pulmonary Embolism (DC), CHF Stoplight Discharge Attestations Time Spent in Discharge Care*: greater than 30 min Specific Discharge Activities: educating patient, educating and/or supporting family/caregiver, discussing with pcp/other providers, discussing with nurse case management/social workers/dc planners, documenting/other paperwork and evaluating patient/reviewing data Status at Discharge: Cognitive status at discharge: cognitively intact , Behavioral status at discharge: cooperative , Functional status at discharge: independent ambulation Overall status at discharge: patient is back to baseline Quality Metrics Clinical Quality Measures During this hospital stay, did patient experience: None Coding Level of Care Code Acute Principal Quality Engineer for Chg Fwd Diagnoses Acute decompensated heart failure I50.9 Atrial fibrillation with RVR I48.91 NSTEMI (non-ST elevated myocardial infarction) I21.4
[2020-10-13 15:48] LABS: T3 Total 60 ng/dL (76-181)
--- NOTE | 2020-10-13 18:05 | PC.RESP ---
Pulmonary Rehab information sent to patient. Patient has previously completed Pulmonary Rehab pre/post lung surgery several years ago.
== END 2020-10-12 15:40 | disposition home or self-care (01) | DRG 280 ==
LOC: ER 17:59 → CSU 18:56
PROVIDERS: Internal Medicine; Physician Assistant; Admitting Provider Internal Medicine; Emergency Provider Family Medicine; PCP Internal Medicine; Visit Provider Internal Medicine
DX: I48.0 Paroxysmal atrial fibrillation (principal); I50.21 Acute systolic (congestive) heart failure; I21.A1 Myocardial infarction type 2; I42.9 Cardiomyopathy, unspecified; R00.0 Tachycardia, unspecified; Z79.01 Long term (current) use of anticoagulants; Z87.891 Personal history of nicotine dependence; I25.10 Atherosclerotic heart disease of native coronary artery without angina pectoris; J43.9 Emphysema, unspecified
CPT/HCPCS: 36415; 71045; 71275; 80053; 81003; 83605; 83735; 83880; 84145; 84439; 84443; 84480; 84481; 84484; 85025; 85610; 85730; 87040; 93005; 93306; 93970; 94640; 96365; 96366; 96367; 96372; 99285; J1644; J1650; J1940; J3490; Q9967

== ENCOUNTER → 2020-10-21 11:19 | Outpatient (BNVA) | payer MEDICARE, MEDICAID, SELFPAY | PROVIDERS: PCP Internal Medicine; Visit Provider Internal Medicine Cardiovascular Disease | DX: I50.9 Heart failure, unspecified (principal); I48.0 Paroxysmal atrial fibrillation; I25.10 Atherosclerotic heart disease of native coronary artery without angina pectoris; J43.9 Emphysema, unspecified; Z87.891 Personal history of nicotine dependence | CPT/HCPCS: 80048; 83735; 83880 ==

== ENCOUNTER → 2020-11-12 11:41 | Outpatient (BNVA) | payer MEDICARE, MEDICAID, SELFPAY | PROVIDERS: PCP Internal Medicine; Visit Provider Internal Medicine Cardiovascular Disease | DX: I50.9 Heart failure, unspecified (principal); I25.10 Atherosclerotic heart disease of native coronary artery without angina pectoris | CPT/HCPCS: 80048; 83735; 83880 ==

== ENCOUNTER 2021-01-13 10:04 | Outpatient (CLI) | payer MEDICARE, MEDICAID, SELFPAY ==
--- NOTE | 2021-01-13 10:15 | USCV_ITS ---
Blanca Ramirez Age: 60 Gender: F : 1960 Exam Date: 01/13/2021 10:22 Ordering Phys: Elizabeth Posey MD ([email or web address]) Technologist: Zo Cisneros Exam Location: [facility] [place] Indication: HEART FAILURE BP: 110 / 60 HR: 55 Rhythm: Sinus Technical Quality: Adequate MEASUREMENTS (Male / Female) Normal Values 2D ECHO LV Diastolic Diameter PLAX 3.5 cm 4.2 - 5.9 / 3.9 - 5.3 cm LV Systolic Diameter PLAX 2.4 cm IVS Diastolic Thickness 1.0 cm 0.6 - 1.0 / 0.6 - 0.9 cm IVS Systolic Thickness 1.1 cm LVPW Diastolic Thickness 1.2 cm 0.6 - 1.0 / 0.6 - 0.9 cm LVPW Systolic Thickness 1.5 cm LVOT Diameter 2.0 cm LV Ejection Fraction 2D Teich 62.0 % LV Ejection Fraction MOD 2C 64.2 % LV Ejection Fraction 2C AL 65.1 % LA Diameter 2.0 cm LA Width 2.0 cm LA Height 2.5 cm RA Width 2.7 cm RA Height 2.4 cm Aorta at Sinotubular Diameter 3.2 cm FINDINGS Left Ventricle Normal left ventricular cavity size. Low normal left ventricular systolic function. Left ventricular ejection fraction is estimated at 50-55 %. No regional wall motion abnormalities. Right Ventricle Normal right ventricular size and systolic function. Right Atrium Normal right atrial size. Left Atrium Normal left atrial size. Mitral Valve Mildly thickened mitral valve. Aortic Valve Structurally normal trileaflet aortic valve. Tricuspid Valve Structurally normal tricuspid valve. Pulmonic Valve Pulmonic valve not well visualized. Pericardium No pericardial effusion. Aorta Normal size aortic root and proximal ascending aorta. CONCLUSIONS 1. This is a limited 2D echocardiogram only. 2. Normal left ventricular cavity size. Low normal left ventricular systolic function. Left ventricular ejection fraction is estimated at 50-55 %. No regional wall motion abnormalities. 3. Normal right ventricular size and systolic function. 4. When compared to previous echocardiogram dated 10/11/2020, left ventricle systolic function has improved significantly. Elizabeth Posey MD (Electronically Signed) Final Date: 14 Jan 2021 18:11 S
== END 2021-01-13 10:05 | disposition home or self-care (01) ==
PROVIDERS: PCP Internal Medicine; Visit Provider Internal Medicine Cardiovascular Disease
DX: I50.9 Heart failure, unspecified (principal)
CPT/HCPCS: 93308

== ENCOUNTER 2021-01-29 06:00 | Outpatient (RCR) | payer MEDICARE, MEDICAID, SELFPAY | END 2021-02-18 23:59 | disposition home or self-care (01) | LOC: SPT 06:00 | PROVIDERS: PCP Internal Medicine; Referring Provider Internal Medicine; Visit Provider Internal Medicine | DX: J44.9 Chronic obstructive pulmonary disease, unspecified (principal) | CPT/HCPCS: 97110; 97162 ==

== ENCOUNTER 2021-02-19 06:00 | Outpatient (RCR) | payer MEDICARE, MEDICAID, SELFPAY | END 2021-03-21 23:59 | disposition home or self-care (01) | LOC: PULRHB 06:00 | PROVIDERS: PCP Internal Medicine; Visit Provider Internal Medicine | DX: J44.9 Chronic obstructive pulmonary disease, unspecified (principal) | CPT/HCPCS: 94010; 94618; G0424 ==

== ENCOUNTER → 2021-02-24 10:53 | Outpatient (BNVA) | payer MEDICARE, MEDICAID, SELFPAY | PROVIDERS: PCP Internal Medicine; Visit Provider Internal Medicine Cardiovascular Disease | DX: I25.10 Atherosclerotic heart disease of native coronary artery without angina pectoris (principal); I50.9 Heart failure, unspecified | CPT/HCPCS: 80048; 83735; 83880 ==

== ENCOUNTER 2021-03-22 06:00 | Outpatient (RCR) | payer MEDICARE, MEDICAID, SELFPAY | END 2021-04-21 23:59 | disposition home or self-care (01) | LOC: PULRHB 06:00 | PROVIDERS: PCP Internal Medicine; Visit Provider Internal Medicine | DX: J44.9 Chronic obstructive pulmonary disease, unspecified (principal) | CPT/HCPCS: G0424 ==

== ENCOUNTER 2021-04-22 06:00 | Outpatient (RCR) | payer MEDICARE, MEDICAID, SELFPAY | END 2021-05-21 23:59 | disposition home or self-care (01) | LOC: PULRHB 06:00 | PROVIDERS: PCP Internal Medicine; Visit Provider Internal Medicine | DX: J44.9 Chronic obstructive pulmonary disease, unspecified (principal) | CPT/HCPCS: G0424 ==

== ENCOUNTER 2022-06-04 15:39 | Emergency (ER) | payer MEDICARE, MEDICAID, SELFPAY ==
[2022-06-04 15:48] VITALS: BP 152/98; PULSE 95; RESP 18; TEMP 36.7; O2SAT 94; BMI 15.9
--- NOTE | 2022-06-04 16:42 | W.ED.BACK ---
HPI - Back Pain/Injury General: Chief Complaint: Back Pain/Injury Stated Complaint: back pain Time Seen by Provider: 06/04/22 16:35 Source: patient Mode of arrival: ambulatory Limitations: no limitations History of Present Illness: 62-year-old female presents to the ER today requesting a refill on her hydrocodone. Patient reports she was seen by her pain management doctor but she tested positive for THC so therefore they let her go and refused to refill her medications. Patient reports she has tried to dry out the medications as long as she could however she is now out and in severe pain. Patient reports she tried to go to her PCP however they also let her go. Patient reports she is unsure what to do at this time. Review of Systems General: Reports: 10 or more systems reviewed and unremarkable except in HPI and below PFSH ED PFSH: Medical History CAD (coronary artery disease) Mild CAD CHF (congestive heart failure), NYHA class III COPD (chronic obstructive pulmonary disease) Emphysema of lung NSTEMI (non-ST elevated myocardial infarction) Type II [place] Paroxysmal atrial fibrillation Pulmonary embolism Surgical History History of lung surgery S/P ablation of atrial fibrillation Family History Sister CHF (congestive heart failure) Mother CHF (congestive heart failure) Denies family history of Diabetes Stroke Social History Quit status (tobacco): has quit using tobacco Year quit tobacco: 2007 Former quit date comment: Hx of 2PPD x 38 Years Second hand smoke exposure: No Smoking risk assessment/counseling performed?: No Alcohol intake: never Counseling given: No Counseling given: Yes Lives independently: Yes Household members: children Marital status: Current occupational status: disabled History of recent travel: No Current gender identity: Female Physical Exam Const: COMMON NORMALS: no acute distress, patient oriented x3, no limitations and alert; negative for average body habitus (thin, cachectic) Resp: COMMON NORMALS: normal respiratory effort and No retractions Cardio: COMMON NORMALS: regular rate and regular rhythm RATE: regular rate RHYTHM: regular rhythm Extremity: COMMON NORMALS: normal to inspection and full ROM Neuro: COMMON NORMALS: patient oriented x3 SENSORIUM/ORIENTATION: Yes alert Psych: COMMON NORMALS: mental status grossly normal, Normal thought process present and cooperative THOUGHT PROCESS: Normal thought process present Skin: NARRATIVE SKIN EXAM: Scarring noted to back from heating pad Course ED course: Patient presents for pain medication refills. Patient has a positive for THC at the pain clinic therefore they dropped her. Patient reports she is in severe pain at this time. I discussed with patient that we do not typically refill pain medication in the ER like this. Patient reports she was also dropping her PCP and needs a PCP and pain management doctor now. Vital Signs: Vital signs: Vital Signs Temperature 98.1 F 06/04/22 15:48 Pulse Rate 95 06/04/22 15:48 Respiratory Rate 18 06/04/22 15:48 Blood Pressure 152/98 06/04/22 15:48 Pulse Oximetry 94 06/04/22 15:48 Oxygen Delivery Me thod 06/04/22 15:48 MDM - Back Pain/Injury Medical Decision Making I discussed with patient that it is not appropriate for the ER to prescribe chronic pain medication. Unfortunately she may be in pain but that is not something we can do here. I would recommend that she follow-up with a pain doctor or a primary care doctor. I will place a referral for both in the ER. At this time patient should use conservative treatment at home. Patient verbalized understanding and was in agreement with this plan. Critical Care Time Critical Care Time: Critical Care Time: No Discharge Plan Discharge Patient Disposition: Home Clinical Impression: Chronic pain Qualifiers: Chronic pain type: other chronic pain Qualified Code(s): G89.29 - Other chronic pain Condition: Stable Prescriptions: No Action levothyroxine 25 mcg tablet 25 mcg PO DAILY albuterol sulfate 90 mcg/actuation HFA aerosol inhaler 1 inh inhalation QID PRN (Reason: shortness of breath or wheezing) Qty: 8.5 3RF budesonide 0.5 mg/2 mL suspension for nebulization 0.5 mg inhalation BID Qty: 120 3RF formoterol fumarate [Perforomist] 20 mcg/2 mL solution for nebulization 2 ml inhalation BID Qty: 120 3RF Yupelri 175 mcg/3 mL solution for nebulization 175 mcg inhalation DAILY Qty: 90 3RF atorvastatin 40 mg tablet 40 mg PO DAILY furosemide 40 mg tablet 20 mg PO DAILY@0800 Qty: 90 1RF Tylenol Extra Strength 500 mg Tablet 1,000 mg PO PRN hydrocodone-acetaminophen 7.5-325 mg tablet 1 - 2 tab PO Q4H MDD 5 TABS PRN (Reason: Pain) Discharge Orders: Discharge ED (Routine); Ordered 06/04/22 Ordered By: Amanda Chery Referrals: Anay Morillo MD [Primary Care Provider] - Discharge Diet: Usual diet Discharge Activity: Resume usual activity Patient Instructions: Opioid Safety, Pain Management Activity Restrictions/Additional Instructions: Referral placed for pain management and PCP. Coding Level of Care Code ED Texture Artist for Mariaelena Osorio
[2022-06-04 17:03] VITALS: BP 120/86; PULSE 81; RESP 15; TEMP 36.4; O2SAT 94
--- NOTE | 2022-06-07 14:35 | DCPLANNER ---
Addendum entered by Christen Kramer 08/20/22 14:28: Patient had an appointment to establish care at [facility] with Dr. Mitchell - patient did attend appointment. Original Note: medical center manager had message to speak with patient about getting established with a primary care physician. medical center manager spoke with patient, she stated that she really wanted to be referred to pain management, case management manager explained that case management manager is unable to refer patients to pain management. medical center manager explained that a referral to pain management has to come from patients primary care physician. Patient stated that she would like help in getting established with someone. medical center manager called [facility], spoke with [place], gave clinic patients information. A follow up appointment was scheduled for May at 1:[address] Rogers, case management manager informed patient of the scheduled appointment.
== END 2022-06-04 17:05 | disposition home or self-care (01) ==
PROVIDERS: Emergency Provider Physician Assistant; PCP Internal Medicine
DX: G89.29 Other chronic pain (principal); I25.10 Atherosclerotic heart disease of native coronary artery without angina pectoris; I50.9 Heart failure, unspecified; J44.9 Chronic obstructive pulmonary disease, unspecified; I25.2 Old myocardial infarction; Z87.891 Personal history of nicotine dependence
CPT/HCPCS: 99282

== ENCOUNTER → 2022-06-10 14:17 | Outpatient (BNVA) | payer MEDICARE, MEDICAID, SELFPAY | PROVIDERS: PCP Internal Medicine; Visit Provider Family Medicine | DX: I50.9 Heart failure, unspecified (principal); J44.9 Chronic obstructive pulmonary disease, unspecified; F32.9 Major depressive disorder, single episode, unspecified; I25.10 Atherosclerotic heart disease of native coronary artery without angina pectoris; G89.29 Other chronic pain; I48.0 Paroxysmal atrial fibrillation; T30.0 Burn of unspecified body region, unspecified degree | CPT/HCPCS: 80053; 80061; 84439; 84443; 85025 ==

== ENCOUNTER → 2022-07-08 15:23 | Outpatient (BNVA) | payer MEDICARE, MEDICAID, SELFPAY | PROVIDERS: PCP Internal Medicine; Visit Provider Family Medicine | DX: I10 Essential (primary) hypertension (principal); R74.8 Abnormal levels of other serum enzymes | CPT/HCPCS: 80053 ==

== ENCOUNTER 2022-07-28 12:47 | Outpatient (CLI) | payer MEDICARE, MEDICAID, SELFPAY ==
--- NOTE | 2022-07-28 13:30 | XR_ITS ---
WS: [id number] SCREENING DEXA SCAN [place] CLINICAL INFORMATION: bmi <18 COMPARISON: None. FINDINGS: The L1-L4 bone mineral density measures 0.669 g/cm2. This corresponds to a T score score of -4.3 and Z score of -2.2. Left femoral neck bone mineral density measures 0.436 g/cm2. This corresponds to a T score of -4.5 an d Z score of -3.0. Right femoral neck bone mineral density measures 0.483 g/cm2. This corresponds to a T score -4.2of an d Z score of -2.7. Mean femoral neck bone mineral density measures 0.460 g/cm2. This corresponds to a T score of -4.3 an d Z score of -2.9. XR/XR DEXA axial skeleton* [id number] IMPRESSION: Osteoporosis lumbar spine. Osteoporosis femoral necks. Patient's FR AX calculated 10 year probability for major osteoporotic fracture is 30.3 % and osteoporotic hip fracture is 9.6%.
== END 2022-07-28 12:48 | disposition home or self-care (01) ==
LOC: RAD 12:47
PROVIDERS: PCP Family Medicine; Visit Provider Family Medicine
DX: Z13.820 Encounter for screening for osteoporosis (principal); Z78.0 Asymptomatic menopausal state; M81.0 Age-related osteoporosis without current pathological fracture
CPT/HCPCS: 77080

== ENCOUNTER → 2022-09-08 14:12 | Outpatient (BNVA) | payer MEDICARE, MEDICAID, SELFPAY | PROVIDERS: PCP Family Medicine; Visit Provider Internal Medicine Cardiovascular Disease | DX: I48.0 Paroxysmal atrial fibrillation (principal); I25.10 Atherosclerotic heart disease of native coronary artery without angina pectoris; J43.9 Emphysema, unspecified; I25.2 Old myocardial infarction; Z87.891 Personal history of nicotine dependence; I50.9 Heart failure, unspecified | CPT/HCPCS: 93005; 99214; Q3014 ==

== ENCOUNTER → 2022-09-09 16:36 | Outpatient (BNVA) | payer MEDICARE, MEDICAID, SELFPAY | PROVIDERS: PCP Family Medicine; Visit Provider Internal Medicine Pulmonary Disease | DX: R05.9 Cough, unspecified (principal); J44.9 Chronic obstructive pulmonary disease, unspecified; J96.11 Chronic respiratory failure with hypoxia; I50.9 Heart failure, unspecified; Z87.891 Personal history of nicotine dependence | CPT/HCPCS: 71046; 99214 ==

== ENCOUNTER → 2023-03-10 13:26 | Outpatient (BNVA) | payer MEDICARE, MEDICAID, SELFPAY | PROVIDERS: PCP Family Medicine; Visit Provider Internal Medicine Pulmonary Disease | DX: J44.9 Chronic obstructive pulmonary disease, unspecified (principal); J96.11 Chronic respiratory failure with hypoxia; I50.9 Heart failure, unspecified; I25.10 Atherosclerotic heart disease of native coronary artery without angina pectoris; Z87.891 Personal history of nicotine dependence | CPT/HCPCS: 99214 ==

== ENCOUNTER → 2023-05-19 13:08 | Outpatient (BNVA) | payer MEDICARE, MEDICAID, SELFPAY | PROVIDERS: PCP Family Medicine; Visit Provider Nurse Practitioner Family | DX: I11.0 Hypertensive heart disease with heart failure (principal); I50.9 Heart failure, unspecified; I25.10 Atherosclerotic heart disease of native coronary artery without angina pectoris; I48.0 Paroxysmal atrial fibrillation; Z87.891 Personal history of nicotine dependence; Z79.82 Long term (current) use of aspirin | CPT/HCPCS: 99214 ==

== ENCOUNTER → 2023-05-24 10:07 | Outpatient (BNVA) | payer MEDICARE, MEDICAID, SELFPAY | PROVIDERS: PCP Family Medicine; Referring Provider Family Medicine; Visit Provider Anesthesiology Pain Medicine | DX: G89.29 Other chronic pain (principal); M51.16 Intervertebral disc disorders with radiculopathy, lumbar region; M47.816 Spondylosis without myelopathy or radiculopathy, lumbar region | CPT/HCPCS: 99204 ==

== ENCOUNTER 2023-06-20 12:34 | Outpatient (CLI) | payer MEDICARE, MEDICAID, SELFPAY ==
--- NOTE | 2023-06-20 12:46 | XRR_ITS ---
PROCEDURE INFORMATION: Exam: XR Lumbosacral Spine Exam date and time: 06/20/2023 12:54 PM Age: 63 years old Clinical indication: Low back pain; Patient HX: Lower back pain, right hip pain, patient fell 1.5 years ago; Additional info: M54.50 - TECHNIQUE: Imaging protocol: Radiologic exam of the lumbosacral spine. Views: 4 or 5 views. COMPARISON: No relevant prior studies available. FINDINGS: Bones/joints: Diffusely demineralized bones without evidence of acute fracture. Mild levoconvex curvature. No spondylolisthesis. Preserved intervertebral disc spaces with mild osteophyte formation along the lumbar spine. Soft tissues: Unremarkable. Vasculature: Aortoiliac atherosclerotic calcification. XR/XR lumbar spine min 4V [id number] IMPRESSION: No acute findings.
== END 2023-06-20 12:35 | disposition home or self-care (01) ==
LOC: RAD 12:34
PROVIDERS: PCP Family Medicine; Visit Provider Anesthesiology Pain Medicine
DX: M54.50 Low back pain, unspecified (principal)
CPT/HCPCS: 72110

== ENCOUNTER → 2023-06-30 09:53 | Outpatient (BNVA) | payer MEDICARE, MEDICAID, SELFPAY | PROVIDERS: Visit Provider Anesthesiology Pain Medicine | DX: M51.16 Intervertebral disc disorders with radiculopathy, lumbar region; M47.816 Spondylosis without myelopathy or radiculopathy, lumbar region | CPT/HCPCS: 99214 ==

== ENCOUNTER 2023-07-25 06:00 | Outpatient (RCR) | payer MEDICARE, MEDICAID, SELFPAY | END 2023-08-21 23:59 | disposition home or self-care (01) | LOC: SPT 06:00 | PROVIDERS: Visit Provider Anesthesiology Pain Medicine | DX: M54.50 Low back pain, unspecified (principal); G89.29 Other chronic pain | CPT/HCPCS: 97110; 97162 ==

== ENCOUNTER 2023-08-03 10:55 | Outpatient (CLI) | payer MEDICARE, MEDICAID, SELFPAY ==
--- NOTE | 2023-08-03 11:00 | MR_ITS ---
WS: [id number] MRI LUMBAR SPINE NONCONTRAST HISTORY: M48.062 - Spinal stenosis, lumbar region with neurogenic ... COMPARISON: None available. TECHNIQUE: Sagittal and axial multisequence imaging is submitted. Degenerative disc disease and facet disease in the cervical spine. Mild encroachment at C5-6 upon the central canal. Normal lumbar alignment with no compression fractures or marrow edema. Disc spaces and vertebral body heights are well-preserved. Conus terminates normally at L1-2 disc level. L1-L2: Normal. L2-L3: Mild ligamentum flavum and facet arthritis. Mild bilateral foraminal narrowing. L3-L4: Mild annular disc bulging, mild ligamentum flavum and facet arthritis. Mild encroachment upon the subarticular recesses and foramina. Mild central, bilateral subarticular recess and foraminal tiffany nosis. Disc contacts the traversing L4 nerve roots. L4-L5: Diffuse annular disc bulging encroaching upon the traversing L5 nerve roots. Slightly greater encroachment upon the LEFT L5 nerve root. There is also annular fissure in the LEFT lateral disc. Mil d central, bilateral subarticular recess and foraminal stenosis. Slightly greater stenosis LEFT luna en and LEFT subarticular recess. L5-S1: Mild annular disc bulging encroaching upon the ventral thecal sac. Bilateral facet joint arthr itis and ligamentum flavum hypertrophy. Mild foraminal narrowing. Cholelithiasis. Very mild atherosclerotic changes within the aorta. IMPRESSION: 1. L4-5: Mild central, bilateral subarticular recess and foraminal stenosis. Greater disc contact inv olving the LEFT L5 nerve roots. 2. L3-4: Mild central, bilateral subarticular recess and foraminal stenosis. Slightly greater contact on the traversing L4 nerve roots. 3. Mild foraminal narrowing at L2-3 and L5-S1. 4. Cholelithiasis.
== END 2023-08-03 10:56 | disposition home or self-care (01) ==
LOC: RAD 10:55
PROVIDERS: Visit Provider Anesthesiology Pain Medicine
DX: M48.062 Spinal stenosis, lumbar region with neurogenic claudication (principal); M48.07 Spinal stenosis, lumbosacral region; K80.20 Calculus of gallbladder without cholecystitis without obstruction
CPT/HCPCS: 72148

== ENCOUNTER 2023-08-22 06:00 | Outpatient (RCR) | payer MEDICARE, MEDICAID, SELFPAY | END 2023-08-24 06:00 | disposition home or self-care (01) | LOC: SPT 06:00 | PROVIDERS: Visit Provider Anesthesiology Pain Medicine | DX: M54.50 Low back pain, unspecified (principal); G89.29 Other chronic pain | CPT/HCPCS: 97110 ==

== ENCOUNTER → 2023-09-08 13:23 | Outpatient (BNVA) | payer MEDICARE, MEDICAID, SELFPAY | PROVIDERS: Visit Provider Internal Medicine Pulmonary Disease | DX: J43.2 Centrilobular emphysema (principal); J96.11 Chronic respiratory failure with hypoxia; I50.9 Heart failure, unspecified; Z87.891 Personal history of nicotine dependence; I25.10 Atherosclerotic heart disease of native coronary artery without angina pectoris | CPT/HCPCS: 99214 ==

== ENCOUNTER → 2024-05-15 11:57 | Outpatient (BNVA) | payer MEDICARE, MEDICAID, SELFPAY | PROVIDERS: PCP Family Medicine; Visit Provider Internal Medicine | DX: I48.91 Unspecified atrial fibrillation (principal); I25.10 Atherosclerotic heart disease of native coronary artery without angina pectoris; I50.9 Heart failure, unspecified; J43.9 Emphysema, unspecified; Z87.891 Personal history of nicotine dependence | CPT/HCPCS: 99214 ==

== ENCOUNTER → 2024-05-16 11:53 | Outpatient (BNVA) | payer MEDICARE, MEDICAID, SELFPAY | PROVIDERS: PCP Family Medicine; Visit Provider Family Medicine | DX: N95.1 Menopausal and female climacteric states (principal) | CPT/HCPCS: 82672; 83001; 83002; 84144 ==

== ENCOUNTER → 2025-03-05 13:37 | Outpatient (BNVA) | payer MEDICARE, MEDICAID, SELFPAY | PROVIDERS: PCP Family Medicine; Visit Provider Internal Medicine | DX: R07.89 Other chest pain (principal); I50.9 Heart failure, unspecified; I48.91 Unspecified atrial fibrillation; Z79.82 Long term (current) use of aspirin; I25.10 Atherosclerotic heart disease of native coronary artery without angina pectoris; J43.9 Emphysema, unspecified; F17.200 Nicotine dependence, unspecified, uncomplicated; F12.90 Cannabis use, unspecified, uncomplicated; I25.2 Old myocardial infarction | CPT/HCPCS: 99214 ==

== ENCOUNTER 2025-03-11 15:32 | Outpatient (CLI) | payer MEDICARE, MEDICAID, SELFPAY ==
--- NOTE | 2025-03-11 15:45 | USCV_ITS ---
Blanca Ramirez Age: 65 Gender: F : 1960 Exam Date: 03/11/2025 15:45 Ordering Phys: Raymond Hope M.D ([email or web address]) Technologist: STACIA Exam Location: [facility] [place] Indication: CP, SoB BP: 140 / 98 HR: 75 Rhythm: Sinus Technical Quality: Adequate MEASUREMENTS (Male / Female) Normal Values 2D ECHO LV Diastolic Diameter PLAX 4.4 cm 4.2 - 5.9 / 3.9 - 5.3 cm IVS Diastolic Thickness 0.9 cm 0.6 - 1.0 / 0.6 - 0.9 cm IVS Systolic Thickness 1.6 cm LVPW Diastolic Thickness 1.2 cm 0.6 - 1.0 / 0.6 - 0.9 cm LVPW Systolic Thickness 1.5 cm LVOT Diameter 2.0 cm LV Ejection Fraction 2D Teich 53.8 % LV Ejection Fraction MOD 4C 55.2 % LV Ejection Fraction MOD 2C 48.6 % LV Ejection Fraction 2C AL 52.0 % LA Diameter 2.7 cm RA Systolic Volume 4C AL 18.5 ml RA Systolic Volume 4C MOD 18.9 ml LA Sys Volume AL 23.4 cm cubed LA Sys Volume Index AL 15.3 cm cubed/m squared Aorta at Sinotubular Diameter 2.8 cm IVC Diameter 2.0 cm M-MODE LA Ao Ratio MM 1.1 AV Cusp Separation MM 2.0 cm DOPPLER AV Peak Velocity 92.0 cm/s LVOT Peak Velocity 81.0 cm/s AV Area Cont Eq vti 2.7 cm squared AV Area Cont Eq pk 2.7 cm squared MV Peak Velocity 75.0 cm/s MV Area PHT 3.6 cm squared Mitral E to A Ratio 1.2 TR Peak Velocity 192.0 cm/s TR Peak Gradient 14.7 mmHg TV Peak E Velocity 56.0 cm/s PV Peak Velocity 87.0 cm/s FINDINGS Left Ventricle Left ventricle is normal in size. LV systolic function is normal with EF of 50-55%. No regional wall motion abnormalities are seen. Right Ventricle Normal in size and function Right Atrium Normal in size Left Atrium Normal in size Mitral Valve Structurally normal mitral valve. Mild mitral regurgitation. Aortic Valve Structurally normal aortic valve. No significant stenosis or regurgitation. Tricuspid Valve Insufficient TR jet to calculate RVSP Pulmonic Valve Mild to moderate pulmonic regurgitation. Pericardium Normal Aorta Normal in size IVC Not well visualized CONCLUSIONS LV systolic function is normal with EF of 50-55% Mild mitral regurgitation Mild to moderate pulmonic regurgitation Raymond Hope MD (Electronically Signed) Final Date: 14 March 2025 12:19 S
== END 2025-03-11 15:33 | disposition home or self-care (01) ==
LOC: RAD 15:33
PROVIDERS: PCP Family Medicine; Visit Provider Internal Medicine
DX: R07.9 Chest pain, unspecified (principal); R06.02 Shortness of breath; I34.0 Nonrheumatic mitral (valve) insufficiency; I37.1 Nonrheumatic pulmonary valve insufficiency
CPT/HCPCS: 93306

== ENCOUNTER 2025-03-14 10:44 | Inpatient (IN) | payer MEDICARE, MEDICAID, SELFPAY ==
[2025-03-14] VITALS (34 sets, daily range): BP systolic 74–116; BP diastolic 57–89; PULSE 50–160; RESP 13–32; TEMP 36.8–37.2; O2SAT 91–99; BMI 15.5; BMI 17.1
--- OUTSIDE RECORDS SUMMARY | 2025-03-14 10:48 | XMS_ITS | Clinical Summary ---
Author Organization [facility] Address [address] [address] Phone Care Team Providers Care Manager Work Name Role Phone Unavailable Primary Care Provider Unavailabl e Social History Tobacco Use Types Packs/Day Years Used Date Smoking Tobacco: Never Assessed Comments Unknown Sex and Gender Information Value Date Recorded Sex Assigned at Not on file Legal Sex Female 6:12 PM CDT Gender Identity Not on file Sexual Orientation Not on file Plan of Treatment Health Maintenance Due Date Last Done Comments DTAP/TDAP/TD VACCINES (1 - Tdap) 1977 BREAST CANCER SCREENING 1998 COLORECTAL SCREENING 2003 Colorectal Cancer Screening 2003 FIT-DNA Q 3 years 2003 FIT/FOBT Q 1 year 2003 Flex Sig/CT Colonography Q 5 years 2003 PNEUMOCOCCAL VACCINE 50+ YEARS (1 of 1 - PCV) 02/16/20 08 ZOSTER VACCINE (1 of 2) 02/16/2008 OSTEOPOROSIS SCREENING 2023 INFLUENZA VACCINE (#1) 2025 RSV VACCINE (60+ or ) (1 - 1-dose 75+ series) 2033 Insurance MEDICAID [place] HMO
--- NOTE | 2025-03-14 10:49 | ED_ITS ---
HPI - Arrhythmia/Palpitations 2 General: Chief Complaint: Chest Pain Stated Complaint: afib rvr Time Seen by Provider: 03/14/25 10:48 History of Present Illness: 65-year-old female presents to the emerg ency room via EMS with complaints of rapid heart rate and chest discomfort. EMS reports on arrival she was in A-fib with RVR with a rate of 190-200. She received 20 of IV Cardizem improved her hypotension improved transiently by time she arrived here heart rate is climbing back up and she is 150-160 irregularly irregular and is now hypotensive she says she has less chest pain than she did initially mild shortness of breath. Related Data Home Medications ?Medication ?Instructions ?Recorded ?Confirmed Marijuana 1 unit inhalation DAILY 11/1103/14/25 aspirin 81 mg tablet,delayed 81 mg PO DAILY 03/05/25 0 03/14/25 release (Adult Low Dose Aspirin) Previous Rx's ?Medication ?Instructions ?Recorded albuterol sulfate 90 mcg/actuation 1 inh inhalation QI D PRN shortness 12/14/24 aerosol inhaler of breath or wheezing #8.5 g ekaterina furosemide 20 mg tablet 20 mg PO ONCE PRN edema #30 tabs 12/14/24 ipratropium bromide 0.02 % 2.5 ml continuous nebulizat ion Q6H 12/14/24 solution for inhalation PRN shortness of breath or wheezing #75 mL meloxicam 15 mg tablet 15 mg PO DAILY #90 tabs 11/21 01/13 albuterol sulfate 2.5 mg/3 mL 2.5 mg (3 mL) inhalation QID PRN 01/08/25 (0.083 %) solution for nebulization shortness of breat h or wheezing #90 mL fluticasone propionate 115 2 puff inhalation BID #12 g ekaterina 01/08/25 mcg-salmeterol 21 mcg/actuation HFA inhaler (Advair HFA) Allergies Allergy/AdvReac Type Severity Reaction Status Date / Time No Known Allergies Allergy Verified 03/05/25 14:08 Review of Systems 2 Const: Denies: fever(s) or chills Card: Reports: chest pain, palpitations, irregular heart rhythm, dyspnea on exertion and orthopnea; Denies: edema Resp: Reports: dyspnea GI: Denies: abdominal pain : Denies: dysuria, urinary frequency or urinary urgency Musc: Denies: neck pain or back pain Skin/Breast: Denies: rash PFSH ED 2 PFSH: Medical History Major depressive disorder COPD (chronic obstructive pulmonary disease) CAD (coronary artery disease) Mild CAD CHF (congestive heart failure), NYHA class III Pulmonary embolism Emphysema of lung Paroxysmal atrial fibrillation NSTEMI (non-ST elevated myocardial infarction) Type II [place] Surgical History History of lung surgery S/P ablation of atrial fibrillation Family History Sister Congestive heart failure (CHF) Mother Congestive heart failure (CHF) Father Cancer unknown Brother Lung disease copd Social History Smoking and tobacco/nicotine status: former use of tobacco/nicotine Quit status (tobacco/nicotine): has quit using Year quit tobacco: 2007 Former quit date comment: Hx of 2PPD x 38 Years Second hand smoke exposure: No Alcohol intake: never Substance/Drug Use: current Substance/Drug use frequency: few times a month Substance/Drug use type: Marijuana Other substance/drug use details: medicinal purposes Lives independently: Yes Household members: children Marital status: Number of children: 2 Current occupational status: disabled Do you think of yourself as: Straight/Heterosexual Current gender identity: Female Special rizwana needs: No Agree to transfusion: Yes Female Reproductive History: Date of menopause: 08/22/97 Physical Exam 2 Const: GENERAL APPEARANCE: cooperative ORIENTATION/CONSCIOUSNESS: Yes awake, Yes oriented to person, Yes oriented to place and Yes oriented to time HENMT: COMMON NORMALS: normocephalic, atraumatic and hearing grossly normal bilaterally HEAD & SCALP: normocephalic and atraumatic Resp: COMMON NORMALS: normal respiratory effort, No retractions, No use of accessory muscles and clear to auscultation bilaterally AUSCULTATION: clear to auscultation bilaterally Cardio: COMMON NORMALS: regular rate, regular rhythm and No murmurs present (Cardio) RATE: regular rate RHYTHM: regular rhythm GI: COMMON NORMALS: Soft to palpation and No hepatosplenomegaly present A USCULTATION: Yes normoactive bowel sounds PALPATION: Yes Soft to palpation, No Tenderness to palpation present (GI), No Guarding due to palpation present (GI) and Yes No hepatosplenomegaly present Extremity: COMMON NORMALS: normal to inspection, capillary refill normal, no clubbing, cyanosis or edema, no calf tenderness and no pedal edema Neuro: SENSORIUM/ORIENTATION: Yes oriented to person, Yes oriented to place and Yes oriented to time Skin: COMMON NORMALS: no rashes or lesions noted GENERAL SKIN EXAM: no rashes or lesions noted Procedures Procedural Sedation Indication: other (Cardioversion) ASA Class: I Preparation: cardiac monitor technician applied, pulse oximeter, supplemental O2 applied, suction/airway equipment at bedside and IV secured IV Etomidate dose (mg): 5 Patient Tolerated Procedure: well Complications: none Course 2 Vital Signs: Vital signs: Vital Signs Temperature 98.2 F 03/14/25 10:46 Pulse Rate 135 H 03/14/25 14:15 Respiratory Rate 23 H 03/14/25 13:45 Blood Pressure 99/79 03/14/25 14:15 Pulse Oximetry 96 03/14/25 14:15 Oxygen Delivery Me thod Nasal Cannula 03/14/25 14:15 Oxygen Flow Rate 3 03/14/25 14:15 MDM - Arrhythmia/Palpitations Medical Decision Making Patient presented she is in A-fib with RVR she been given 20 mg IV push Cardizem in the field which lowered her blood pressure considerably she is given IV fluids and I will initially switch her to amiodarone. In reviewing her chart she has previous had an ablation she is not on any anticoagulation or any negative inotropes for rate control. Contacted Dr. Hope and seen her in the past. I had initially plan to switch her back to Cardizem without a bolus and monitor blood pressure closely to try to get better rate control he recommends continuing the amiodarone for now and he will come and see the patient she still has some chest discomfort that she rates 4-5 out of 10. We also discussed possible cardioversion given the continuing chest discomfort he would like to see her first. Previous echocardiogram from September 2020 showed an EF of 25 to 29% with severe global hypokinesia. Patient related she had had an echo this week just 3 days ago however it is not available on the EMR at this time Dr. Hope is planning to check to see if it is in the system and has not been uploaded to the EMR yet. Dr. Hope was able to find the echocardiogram was normal ejection fraction improved from previous. He recommends we stay on the amiodarone initially. He came and seen the patient and recommends cardioversion which is supervised I provided procedural anesthesia for this. They shocked it 100 then 200 J and a third time at 200 J had no effect on her atrial fibrillation he recommends continuing the amiodarone adding Cardizem at a low dose he will continue to supervise he also recommend starting Lovenox. Orders are written for admission of discussed Dr. Cee updated orders as per Dr. Hope's recommendations. Medical Records I reviewed the patient's medical records. Lab Data I reviewed the patient's lab results. 03/14/25 10:40 03/14/25 10:40 Radiology Impressions Chest X-Ray 03/14/25 10:55 Impression: 1. Hyperinflation and emphysematous change. 2. Atherosclerosis. Laboratory Results WBC 16.52 10^3/uL (3.29-11.43) H 03/14/25 10:40 RBC 5.23 10^6/uL (3.85-5.65) 03/14/25 10:40 Hgb 15.50 g/dL (11.27-16.99) 03/14/25 10:40 Hct 48.1 % (36-47) H 03/14/25 10:40 MCV 92.0 fl (85-98) 03/14/25 10:40 MCH 29.6 pg (27-33) 03/14/25 10:40 MCHC 32.2 g/dL (30-55) 03/14/25 10:40 RDW 13.5 % (12.1-15.1) 03/14/25 10:40 Plt Count 457 10^3/cmm (157-399) H 03/14/25 10:40 MPV 10.0 fL (7.4-10.4) 03/14/25 10:40 Neut % (Auto) 71.4 % 03/14/25 10:40 Lymph % (Auto) 17.2 % 03/14/25 10:40 Pepin % (Auto) 10.4 % 03/14/25 10:40 Eos % (Auto) 0.1 % 03/14/25 10:40 Baso % (Auto) 0.5 % 03/14/25 10:40 Neut # (Auto) 11.81 10^3/uL (1.8-7.7) H 03/14/25 10:40 Lymph # (Auto) 2.8 10^3/uL (0.8-4.8) 03/14/25 10:40 Pepin # (Auto) 1.7 10^3/uL (0.2-0.9) H 03/14/25 10:40 Eos # (Auto) 0.0 10^3/uL (0.0-0.8) 03/14/25 10:40 Baso # (Auto) 0.1 10^3/uL (0.0-0.1) 03/14/25 10:40 Nucleated RBC % (auto) 0 % 03/14/25 10:40 Nucleated RBCs # 0.0 /100WBC 03/14/25 10:40 Sodium 140 mmol/L (136-145) 03/14/25 10:40 Potassium 4.0 mmol/L (3.5-5.1) 03/14/25 10:40 Chloride 100 mmol/L (98-107) 03/14/25 10:40 Carbon Dioxide 24 mmol/L (22-29) 03/14/25 10:40 Anion Gap 20.0 (5-19) H 03/14/25 10:40 BUN 15 mg/dL (8-23) 03/14/25 10:40 Creatinine 0.8 mg/dL (0.5-0.9) 03/14/25 10:40 GFR Calculation 71.5 mL/min (90-130) L 03/14/25 10:40 Glucose 137 mg/dL (65-115) H 03/14/25 10:40 Calculated Osmolality 293 mOsm/kg (285-295) 03/14/25 10:40 Calcium 9.6 mg/dL (8.5-10.5) 03/14/25 10:40 Total Bilirubin 0.5 mg/dL (0.15-1.2) 03/14/25 10:40 AST 17 U/L (0-32) 03/14/25 10:40 ALT < 5 U/L (0-33) 03/14/25 10:40 Alkaline Phosphatase 159 U/L (35-105) H 03/14/25 10:40 Troponin T Baseline 16 ng/L (0-10) H 03/14/25 10:40 Total Protein 7.4 g/dL (6.6-8.7) 03/14/25 10:40 Albumin 3.8 g/dL (3.5-5.2) 03/14/25 10:40 Globulin 3.6 g/dL (1.3-4.6) 03/14/25 10:40 All radiology interpretation(s) finalized by discharge Discharge Plan Discharge Patient Disposition: Admitted As Inpatient Admit Provider: Lee Cee Clinical Impression: Paroxysmal atrial fibrillation with RVR, CHF (congestive heart failure), NYHA class III, CAD (coronary artery disease), S/P ablation of atrial fibrillation Condition: Stable Coding Level of Care Code ED Javascript Web Developer for Mariaelena Osorio
--- NOTE | 2025-03-14 10:55 | XR_ITS ---
WS: [id number] Portable AP upright chest, 03/14/2025 Clinical Data: chest pain Comparison: Two-view chest, 09/09/2022 Findings: The diaphragms are flattened. There is scarring at the surface of both diaphragms. There is fibrotic change in both upper lobes with bullous emphysema. No nodules, masses or effusions are seen. The heart is normal. The pulmonary vascularity is not increased. No pneumonia or pneumothorax is seen. The aortic arch shows calcification and there is slight tortuosity of the descending thoracic aorta. There are monitor leads on the chest wall. XR/XR chest 1V portable [id number] Impression: 1. Hyperinflation and emphysematous change. 2. Atherosclerosis.
--- NOTE | 2025-03-14 10:55 | ECG_ITS ---
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 Measurements Intervals [place] Rate: 151 P: 0 [place]: 0 QRS: 81 QRSD: 84 T: 269 QT: 242 QTc: 385 Interpretive Statements ATRIAL FIBRILLATION WITH RAPID VENTRICULAR RESPONSE SEPTAL MYOCARDIAL INFARCTION , POSSIBLY ACUTE [40+ ms Q WAVE IN V1/V2] MARKED ST DEPRESSION, CONSIDER SUBENDOCARDIAL INJURY [0.2+ mV ST DEPRESSION] Compared to ECG 10/11/2020 21:45:11 ST DEPRESSION MORE PRONOUNCED QT PROLONGATION NO LONGER PRESENT Sinus bradycardia no longer present Right-axis deviation no longer present T-wave abnormality no longer present Electronically Signed On 03-15-2025 18:58:15 CDT by Windy [id number] [id number]
[2025-03-14] MEDS: amiodarone 150 MG/100 ML PREMIX 400 MG IV (11:01)
[2025-03-14 11:03] LABS: Hematocrit 48.1 % (36-47); Hemoglobin 15.50 g/dL (11.27-16.99); Mean Corpuscular HGB Conc 32.2 g/dL (30-55); Mean Corpuscular Hemoglobin 29.6 pg (27-33); Mean Corpuscular Volume 92.0 fl (85-98); Nucleated Red Blood Cells % 0 %; Platelet Count 457 10^3/cmm (157-399); Red Blood Count 5.23 10^6/uL (3.85-5.65); White Blood Count 16.52 10^3/uL (3.29-11.43)
[2025-03-14] MEDS: fentaNYL 50 mcg/mL INJ 2mL 25 MCG IVP (11:19)
[2025-03-14 11:22] LABS: Alanine Aminotransferase < 5 U/L (0-33); Albumin Level 3.8 g/dL (3.5-5.2); Alkaline Phosphatase 159 U/L (35-105); Anion Gap 20.0 (5-19); Aspartate Amino Transferase 17 U/L (0-32); Blood Urea Nitrogen 15 mg/dL (8-23); Calcium 9.6 mg/dL (8.5-10.5); Carbon Dioxide 24 mmol/L (22-29); Chloride 100 mmol/L (98-107); Creatinine Clr Calc Pharmacy 51.3065; Globulin 3.6 g/dL (1.3-4.6); Glucose 137 mg/dL (65-115); Osmolality Calculated 293 mOsm/kg (285-295); Potassium 4.0 mmol/L (3.5-5.1); Sodium 140 mmol/L (136-145); Total Protein 7.4 g/dL (6.6-8.7)
[2025-03-14 11:23] LABS: Troponin(5th) Baseline 16 ng/L (0-10)
[2025-03-14] MEDS: methylPREDNISolone sod succ 125 mg/2 mL INJ IVP (11:55)
[2025-03-14] MEDS: dilTIAZem 100 MG in sodium chloride 0.9% (add-van) 100 ML IV (11:56)
[2025-03-14] MEDS: ondansetron 2 mg/ML SDV 2 mL 4 MG IVP (12:10)
--- NOTE | 2025-03-14 12:15 | P.CONIM_ITS ---
<Statement entered by Raymond Hope M.D - 03/16/25 11:13> Patient was evaluated and cared for in conjunction with an advanced practice practitioner.? I personally examined the patient and reviewed the chart and all pertinent data including imaging, telemetry, and laboratory results.? I discussed the patient in detail with the advanced practice practitioner.? Please see? their note for complete consult note, testing results and agreed upon plan of care for the patient. We decided to perform cardioversion however despite of 3 shocks, atrial fibrillation continues. Continue IV amiodarone and IV Cardizem. Recent echo showed normal LV systolic function. ICU monitoring. May need coronary angiogram once rate controlled given significant, typical chest pain. GENERAL: Patient is alert, awake and oriented x3. HEART: Irregularly irregular, tachycardia LUNGS: diminished air entry CENTRAL NERVOUS SYSTEM: Grossly nonfocal. EXTREMITIES: Lower extremities without edema bilaterally. Providers/Reason For Consult 2 Consulting Physician/Specialty*: Dr Hope, cardiology Reason for Consult*: atrial fibrillation with RVR, chest pain Requesting Physician: Dr. Kwok Attending Physician: Lee Cee Primary Care Provider: Smooth Hensley MD History of Present Illness History of Present Illness Blanca Ramirez is a 65 year old female with past medical history of atrial fibrillation (previous cardioversion in 2018, status post ablation in [address] Monsivais in [place]), nonobstructive CAD, severe emphysema (status post lung reduction), uses oxygen at home as needed, history of pulmonary embolism. She presented to the emergency room today via EMS due to atrial fibrillation with RVR and chest pain. By EMS report ventricular rates were 190-200. She was treated with IV diltiazem with transient improvement but resulted in hypotension. Consult was requested for management of atrial fibrillation with RVR. She reports waking up this morning around 6 AM feeling rapid heart rate and chest pressure. She was not sure if the chest pain was due to her more frequent coughing lately, has been worse for the last 2 to 3 days. Review of Systems 2 Card: Reports: palpitations, irregular heart rhythm and dyspnea on exertion; Denies: chest pain, edema, swelling of feet/ankles, lightheadedness, syncope, pre-syncope, orthopnea or leg pain with exertion Resp: Reports: dyspnea; Denies: productive cough or wheezing GI: Denies: hematochezia : Denies: hematuria Bhaskar/Lymph: Denies: easy bleeding Medications/Allergies Home Medications ?Medication ?Instructions ?Recorded ?Confirmed ?Last Taken ?Type Marijuana 1 unit inhalation DAILY 1011/1103/14/25 Unknown History albuterol sulfate 90 mcg/actuation 1 inh inhalation QI D PRN shortness 12/14/24 03/14/25 Unknown Rx aerosol inhaler of breath or wheezing #8.5 g ekaterina furosemide 20 mg tablet 20 mg PO ONCE PRN edema #30 tabs 12/14/24 03/14/25 Unknown Rx ipratropium bromide 0.02 % 2.5 ml continuous nebulizat ion Q6H 12/14/24 03/14/25 Unknown Rx solution for inhalation PRN shortness of breath or wheezing #75 mL meloxicam 15 mg tablet 15 mg PO DAILY #90 tabs 11/2103/14/25 03/13/25 20:00 Rx albuterol sulfate 2.5 mg/3 mL 2.5 mg (3 mL) inhalation QID PRN 01/08/25 03/14/25 Unknown Rx (0.083 %) solution for nebulization shortness of breat h or wheezing #90 mL fluticasone propionate 115 2 puff inhalation BID #12 g ekaterina 01/08/25 03/14/25 Unknown Rx mcg-salmeterol 21 mcg/actuation HFA inhaler (Advair HFA) aspirin 81 mg tablet,delayed 81 mg PO DAILY 03/05/25 0 03/14/25 Unknown History release (Adult Low Dose Aspirin) Allergies Allergy/AdvReac Type Severity Reaction Status Date / Time No Known Allergies Allergy Verified 03/05/25 14:08 Current Medications Generic Name Dose Route Start Last Admin Trade Name Freq PRN Reason Stop Dose Admin Amiodarone HCl/Dextrose 360 mg in 200 mls @ 0 mls/hr 03/14/25 10:53 03/14/25 12:10 Nexterone IV 0.03 mg/min .Q0M DELORIS 1 mls/hr Protocol Titration Per Protocol Diltiazem HCl 100 mg/ Sodium 100 mls @ 0 mls/hr 03/14/25 11:45 03/14/25 12:41 Chloride IV 5 mg/hr .Q0M DELORIS 5 mls/hr Protocol Titration Per Protocol PFSH Acute 2 PFSH: Medical History Major depressive disorder COPD (chronic obstructive pulmonary disease) CAD (coronary artery disease) Mild CAD CHF (congestive heart failure), NYHA class III Pulmonary embolism Emphysema of lung Paroxysmal atrial fibrillation NSTEMI (non-ST elevated myocardial infarction) Type II [place] Surgical History History of lung surgery S/P ablation of atrial fibrillation Family History Sister Congestive heart failure (CHF) Mother Congestive heart failure (CHF) Father Cancer unknown Brother Lung disease copd Social History Smoking and tobacco/nicotine status: current every day tobacco/nicotine user Quit status (tobacco/nicotine): has quit using Year quit tobacco: 2007 Former quit date comment: Hx of 2PPD x 38 Years Second hand smoke exposure: No Alcohol intake: never Substance/Drug Use: current Substance/Drug use frequency: daily Other substance/drug use details: medicinal purposes Lives independently: Yes Household members: children Marital status: Number of children: 2 Current occupational status: disabled Do you think of yourself as: Straight/Heterosexual Current gender identity: Female Special rizwana needs: No Agree to transfusion: Yes Female Reproductive History: Date of menopause: 08/22/97 Vitals/I&O/Wt Last Vital Signs Temp 98.2 F 03/14/25 10:46 Pulse 150 H 03/14/25 12:45 Resp 20 H 03/14/25 12:45 BP 106/80 03/14/25 12:45 Pulse Ox 96 03/14/25 12:45 O2 Del Method Nasal Cannula 03/14/25 12:45 O2 Flow Rate 3 03/14/25 12:45 03/13/25 03/14/25 03/14/25 22:59 06:59 14:59 Intake Total 120.054 / 120.054 Balance 120.054 / 120.054 Weight last 48 hrs Weight 105 lb Physical Exam 2 Const: COMMON NORMALS: patient oriented x3 GENERAL APPEARANCE: frail appearing Chest: COMMONS NORMALS: normal inspection of the chest and normal palpation of entire chest wall CHEST: Yes Symmetrical chest wall rise Resp: COMMON NORMALS: normal respiratory effort, No retractions, No use of accessory muscles and clear to auscultation bilaterally EFFORT & INSPECTION: Yes symmetric chest movement AUSCULTATION: clear to auscultation bilaterally Cardio: COMMON NORMALS: S1 normal heart sound present, S2 normal heart sound present, No gallops present (Cardio), No clicks present (Cardio), No murmurs present (Cardio) and No rub (Cardio) RATE: tachycardic (130-150 bpm) R HYTHM: abnormal rhythm irregularly irregular HEART SOUNDS: S1 normal heart sound present and S2 normal heart sound present PERIPHERAL PULSES: radial pulses present, posterior tibial pulses present and dorsalis pedis present Neuro: COMMON NORMALS: patient oriented x3 and moves all extremities Psych: COMMON NORMALS: mental status grossly normal and cooperative Data 03/14/25 10:40 03/14/25 10:40 A&P Assessment and plan 1. Paroxysmal atrial fibrillation: 2. S/P ablation of atrial fibrillation: 3. CAD (coronary artery disease): 4. Chest pain: Plan: Patient was evaluated in the ER by Dr. Hope. Due to continued chest pain, borderline hypotensive blood pressures and inadequate rate control with amiodarone infusion, it was decided to attempt cardioversion. Despite 3 synchronized cardioversion shocks, she maintained atrial fibrillation. Will go ahead and start anticoagulation for her and continue amiodarone. If blood pressure allows will use IV diltiazem for rate control. If still borderline hypotensive we will start digoxin loading instead of diltiazem. PDMP PDMP Reviewed: Not Reviewed Coding Level of Care Code Acute Code for Chg Fwd Diagnoses Paroxysmal atrial fibrillation I48.0 S/P ablation of atrial fibrillation Z98.890; Z86.79 CAD (coronary artery disease) I25.10 Chest pain R07.9
[2025-03-14] MEDS: etomidate 2 mg/mL INJ SDV 10 mL 10 MG IVP (12:41)
--- NOTE | 2025-03-14 12:42 | PC.NURSE ---
CARDIOVERSION ATTEMPTED. RESPIRATORY SINGER AND UNLOADER AND ED PHYSICIAN AT BEDSIDE 5MG ETOMIDATE IV GIVEN AT 1235 150 SYNC CARDIOVERSION 1235, NO CHANGE IN RHYTHM OR RATE SYNC CARDIOVERSION 1235 @200, NO CHANGE IN RHYTHM OR RATE SYNC CARDIOVERSION 1237@200, NO CHANGE IN RHYTHM OR RATE
--- NOTE | 2025-03-14 12:44 | PC.NURSE ---
PER PAPER CLEANER RESUME AMIODIRONE AND CARDIZEM
--- NOTE | 2025-03-14 12:50 | PM.PROC ---
Procedure Note: Date of procedure: 03/14/25 Pre-procedure diagnosis: Atrial fibrillation with RVR Post-procedure diagnosis: same Procedure: Patient was having chest discomfort along with A-fib with RVR and heart rate in 150s. She is borderline hypotensive. Consent was obtained verbally from patient in presence of her family to proceed with cardioversion. ER team sedated patient. Synchronized cardioversion with 3 shocks was performed with initial shock at 120 J and 2 subsequent shocks with 200 J. However patient did not convert back to sinus rhythm. Attempts at cardioversion were unsuccessful. Start anticoagulation. Continue amiodarone. Start low-dose Cardizem as blood pressure tolerates. If heart rates do not improve, can start digoxin. Performing Provider: Raymond Hope Complications: None Condition: critical Disposition: no change (Will need ICU transfer. ) Coding Level of Care Code Acute Code for Mariaelena Fwosvaldo
--- NOTE | 2025-03-14 12:56 | P.HP_ITS ---
Providers/Chief Complaint 2 Admitting Physician: Lee Cee Primary Care Provider: Smooth Hensley MD Chief Complaint: afib rvr History of Present Illness Blanca Ramirez is a 65 year old patient with a history of coronary artery disease, systolic congestive heart failure (EF 25?29% in 2020), chronic obstructive pulmonary disease on home oxygen, atrial fibrillation (status-post ablation), and prior pulmonary embolism presenting with several hours of chest discomfort and palpitations. Emergency Medical Services recorded atrial fibrillation with heart rates up to 190?200 bpm; a 20 mg IV diltiazem push transiently slowed the rate but caused hypotension. Emergency Department attempts at DC cardioversion (three shocks) were unsuccessful. Amiodarone and continuous diltiazem infusions were started, and cardiology (Dr. Hope) was consulted. The patient notes a several-day cough that produced a large amount of sputum this morning, associated mild nausea (treated in ED), but denies fever, chills, vomiting, diarrhea, or lower-extremity swelling. She states atrial fibrillation was triggered with with a severe episode of cough trying to bring up a lot of sputum. They usually require home oxygen but do not wear it at night. Review of systems otherwise negative for sore throat or rash. Review of Systems 2 Const: Denies: fever(s), chills, body aches or malaise ENMT: Denies: throat pain Card: Reports: chest pain, palpitations and irregular heart rhythm; Denies: edema, pre-syncope or dyspnea on exertion Resp: Reports: productive cough, change in phlegm color and chest congestion; Denies: dyspnea or hemoptysis GI: Denies: abdominal pain, nausea, vomiting, diarrhea, constipation, hematochezia or melena : Denies: flank pain, urinary frequency or hematuria Musc: Denies: back pain, joint swelling or joint redness Skin/Breast: Denies: rash or new lesions Neuro: Denies: headache(s) or confusion Medications/Allergies Home Medications ?Medication ?Instructions ?Recorded ?Confirmed ?Last Taken ?Type Marijuana 1 unit inhalation DAILY 10/0 11/1103/14/25 Unknown History albuterol sulfate 90 mcg/actuation 1 inh inhalation QI D PRN shortness 12/14/24 03/14/25 Unknown Rx aerosol inhaler of breath or wheezing #8.5 g ekaterina furosemide 20 mg tablet 20 mg PO ONCE PRN edema #30 tabs 12/14/24 03/14/25 Unknown Rx ipratropium bromide 0.02 % 2.5 ml continuous nebulizat ion Q6H 12/14/24 03/14/25 Unknown Rx solution for inhalation PRN shortness of breath or wheezing #75 mL meloxicam 15 mg tablet 15 mg PO DAILY #90 tabs 11/2103/14/25 03/13/25 20:00 Rx albuterol sulfate 2.5 mg/3 mL 2.5 mg (3 mL) inhalation QID PRN 01/08/25 03/14/25 Unknown Rx (0.083 %) solution for nebulization shortness of breat h or wheezing #90 mL fluticasone propionate 115 2 puff inhalation BID #12 g ekaterina 01/08/25 03/14/25 Unknown Rx mcg-salmeterol 21 mcg/actuation HFA inhaler (Advair HFA) aspirin 81 mg tablet,delayed 81 mg PO DAILY 03/05/25 0 03/14/25 Unknown History release (Adult Low Dose Aspirin) Allergies Allergy/AdvReac Type Severity Reaction Status Date / Time No Known Allergies Allergy Verified 03/05/25 14:08 PFSH Acute 2 PFSH: Medical History Major depressive disorder COPD (chronic obstructive pulmonary disease) CAD (coronary artery disease) Mild CAD CHF (congestive heart failure), NYHA class III Pulmonary embolism Emphysema of lung Paroxysmal atrial fibrillation NSTEMI (non-ST elevated myocardial infarction) Type II NV Surgical History History of lung surgery S/P ablation of atrial fibrillation Family History Sister Congestive heart failure (CHF) Mother Congestive heart failure (CHF) Father Cancer unknown Brother Lung disease copd Social History (Updated 03/14/25 @ 14:53 by Lee Cee MD) Smoking and tobacco/nicotine status: former use of tobacco/nicotine Quit status (tobacco/nicotine): has quit using Year quit tobacco: 2007 Former quit date comment: Hx of 2PPD x 38 Years Second hand smoke exposure: No Alcohol intake: never Substance/Drug Use: current Substance/Drug use frequency: few times a month Substance/Drug use type: Marijuana Other substance/drug use details: medicinal purposes Lives independently: Yes Household members: children Marital status: Number of children: 2 Current occupational status: disabled Do you think of yourself as: Straight/Heterosexual Current gender identity: Female Special rizwana needs: No Agree to transfusion: Yes Female Reproductive History: Date of menopause: 08/22/97 Vitals/I&O/Wt Last Vital Signs Temp 98.2 F 03/14/25 10:46 Pulse 150 H 03/14/25 12:45 Resp 20 H 03/14/25 12:45 BP 106/80 03/14/25 12:45 Pulse Ox 96 03/14/25 12:45 O2 Del Method Nasal Cannula 03/14/25 12:45 O2 Flow Rate 3 03/14/25 12:45 03/13/25 03/14/25 03/14/25 22:59 06:59 14:59 Intake Total 120.054 / 120.054 Balance 120.054 / 120.054 Weight last 48 hrs Weight 47.627 kg Physical Exam 2 Const: COMMON NORMALS: patient oriented x3 and alert GENERAL APPEARANCE: c ooperative and frail appearing NUTRITIONAL APPEARANCE: thin O RIENTATION/CONSCIOUSNESS: Yes awake HENMT: COMMON NORMALS: oropharynx normal Neck/C-Spine: COMMON NORMALS: no JVD Resp: COMMON NORMALS: normal respiratory effort and clear to auscultation bilaterally AUSCULTATION: diminished lung sounds Cardio: COMMON NORMALS: no JVD, regular rhythm, S1 normal heart sound present, S2 normal heart sound present and No murmurs present (Cardio) RATE: t achycardic RHYTHM: abnormal rhythm irregularly irregular HEART SOUNDS: S1 normal heart sound present and S2 normal heart sound present GI: COMMON NORMALS: Normal to inspection, nondistended, normoactive bowel sounds present, Soft to palpation and non-tender PALPATION: Yes Soft to palpation Extremity: COMMON NORMALS: no joint enlargement and no pedal edema Neuro: COMMON NORMALS: patient oriented x3 and moves all extremities S ENSORIUM/ORIENTATION: Yes alert Skin: COMMON NORMALS: no rashes or lesions noted GENERAL SKIN EXAM: no rashes or lesions noted Data 03/14/25 10:40 03/14/25 10:40 A&P Assessment and plan 1. Paroxysmal atrial fibrillation with RVR: AF with rates 140?200 bpm with past history of ablation, currently refractory to three DC cardioversions; transient rate control with IV diltiazem complicated by hypotension. Currently on amiodarone and diltiazem drips; cardiology involved for further rhythm/rate control. Reviewed vitals, CBC, CMP, troponin, chest x- ray, EKG, ED provider note, discussed with ED provider. Monitor blood pressure, consider pressor. Maintain MAP 65 mmHg. - Continue amiodarone infusion per protocol - Continue diltiazem drip with hemodynamic monitoring. Monitor for risk of hypotension. - Admit to ICU for close cardiac and blood-pressure monitoring - Cardiology (Dr. Hope) to re-evaluate; consider repeat cardioversion once once has had some time with antiarrhythmic. - Anticoagulation with Lovenox. Continue aspirin. Reviewed EKG, noted ST depression inferior laterally, Q waves in V1 and V2 on monitor placement, pending official read. Complete troponin EKG series. - Check and replete magnesium as needed - Check TSH - She reports she had just had an echo done day before yesterday 2. COPD exacerbation: Severe exacerbation of COPD. Normally on oxygen only as needed, currently requiring 3 L, with severe productive cough putting her into A-fib with RVR. Diminished air entry on exam. Copious purulent appearing sputum with color change. Several-day productive cough in patient with known COPD; no fever but WBC 16.5 K. Discussed symptom relief while avoiding excessive beta- agonist?induced tachycardia. - Initiate systemic steroids (per provider discussion). Continue IV steroid with Solu-Medrol, monitor for risk of hypertension, hyperglycemia, encephalopathy, gastritis. - Empiric antibiotic with ceftriaxone. - Sputum culture - Provide cautious bronchodilator therapy (e.g., Xopenex) PRN due to tachycardia - Start guaifenesin (Mucinex) and cough suppressant as ordered - Use flutter valve device to assist sputum clearance - Provide tissues and supportive care Plan: History of systolic CHF, had a repeat TTE just the day before yesterday, reviewed study, noted EF 50-55 %, mild MVR, mild to moderate PVR. Currently not in exacerbation but at risk of exacerbation with A-fib with RVR. Has also required boluses due to hypotension. Monitor for risk of fluid overload and acute CHF. Complete troponin EKG series. Monitor telemetry. Remote history of PE: Currently on anticoagulation as above for atrial fibrillation. Will obtain D-dimer, although may be abnormal just due to atrial fibrillation. PDMP PDMP Reviewed: Not Reviewed Attestations 2 Medical Necessity Statement*: Admission of over 2 midnights anticipated for assessment management of the goal to control A-fib with RVR, with poor response to treatment so far, requiring boluses due to hypotension, unresponsive to DC cardioversion attempt, with severe exacerbation of COPD. Coding Level of Care Code Critical Care >/= 30 minutes Critical care time (in minutes): 35 The high probability of a clinically significant, sudden or life threatening deterioration, as referenced in this documentation, required my full and direct attention, intervention and personal management. The critical care time shown is in addition to time spent performing any reported separately billable procedures and includes the following: [x] Data and vital sign review and interpretation [x ] Patient assessment, examination and intervention [x] Medication orders and management [x] Patient/Family updates as able [x] Care Coordination and Documentation. Diagnoses Paroxysmal atrial fibrillation with RVR I48.0 COPD exacerbation J44.1
[2025-03-14 13:06] LABS: Troponin 5 2HR 13.13 ng/L (0-10)
[2025-03-14 13:08] LABS: Troponin 5 2HR Delta -2.87 ABS# (0-10)
--- NOTE | 2025-03-14 14:17 | ECG_ITS ---
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 Measurements Intervals [place] Rate: 136 P: 0 MS: 0 QRS: 79 QRSD: 85 T: -70 QT: 286 QTc: 432 Interpretive Statements ATRIAL FIBRILLATION WITH RAPID VENTRICULAR RESPONSE SEPTAL MYOCARDIAL INFARCTION , OF INDETERMINATE AGE [40+ ms Q WAVE IN V1/V2] MODERATE T-WAVE ABNORMALITY, CONSIDER INFERIOR ISCHEMIA [-0.1+ mV T-WAVE IN II/aVF] Compared to ECG 03/14/2025 10:52:16 T-wave abnormality now present Possible ischemia now present ST (T wave) deviation no longer present Myocardial infarct finding still present Electronically Signed On 03-16-2025 08:54:00 CDT by Raymond Hope M.D. [id number]
[2025-03-14 14:38] LABS: Magnesium 2.0 mg/dL (1.7-2.3); Thyroid Stimulating Hormone 2.00 uIU/mL (0.27-4.20)
[2025-03-14] MEDS: cefTRIAXone 1,000 mg SDV 1000 MG IVP (15:50)
--- NOTE | 2025-03-14 16:24 | ECG_ITS ---
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 Measurements Intervals [place] Rate: 66 P: 0 CA: 0 QRS: 78 QRSD: 86 T: 246 QT: 415 QTc: 435 Interpretive Statements SUPRAVENTRICULAR RHYTHM ANTERIOR MYOCARDIAL INFARCTION , OF INDETERMINATE AGE [40+ ms Q WAVE AND/OR ST/T ABNORMALITY IN V3/V4] MODERATE T-WAVE ABNORMALITY, CONSIDER LATERAL ISCHEMIA [-0.1+ mV T-WAVE IN I/aVL/V5/V6] MODERATE T-WAVE ABNORMALITY, CONSIDER INFERIOR ISCHEMIA [-0.1+ mV T-WAVE IN II/aVF] Compared to ECG 03/14/2025 14:17:47 Supraventricular rhythm now present Atrial fibrillation no longer present Possible ischemia still present Electronically Signed On 03-16-2025 08:53:00 CDT by Raymond Hope M.D. [email or web address]
[2025-03-14] MEDS: methylPREDNISolone sod succ 40 mg/mL INJ 30 MG IVP ×2 (16:59→23:51)
[2025-03-14 17:48] LABS: Troponin 5 6HR 19.13 ng/L (0-10); Troponin 5 6HR Delta 3.13 ng/L (0-12)
--- NOTE | 2025-03-14 19:07 | PC.NURSE ---
Patient came in from ER with A-fib with RVR. Heart rate at 150 with amio and cardizem drips running. Patient then converted into just A-fib at 1521. Dr. Hope was notified and he ordered to just keep the amio drip running.
--- NOTE | 2025-03-14 20:00 | PC.NURSE ---
Cardizen gtt: Cardizem gtt off at shift change but shows running in MAR. Paused in MAR to reflect current rate.
[2025-03-14 20:40] LABS: Glucose Urine UA Trace (Normal); Nitrate Urine Negative (Negative)
[2025-03-14 20:44] LABS: Add Urine Microscopic? YES; Universal Test for UA Present (0)
--- NOTE | 2025-03-14 20:45 | PC.NURSE ---
HR sustaining in 150s-160s after pt up to bedside commode. Dr. Napoles notified. New telephone order for 5 mg [address]oprolol IVP ONCE. Dr. Napoles also gave order to umair garcia from OCT.
[2025-03-14] MEDS: metoprolol tartrate 1 mg/1 mL SDV 5 mL 5 MG IVP (21:03)
[2025-03-14 21:23] LABS: Specific Gravity, Urine 1.037 (1.005-1.030); UA Slide Review UA Slide Review Perf
[2025-03-14] MEDS: guaiFENesin-dextromethorphan UDC 10 mL PO (23:51)
[2025-03-15] VITALS (43 sets, daily range): BP systolic 88–146; BP diastolic 52–92; PULSE 46–77; RESP 11–23; TEMP 36.5–36.8; O2SAT 93–100
[2025-03-15] MEDS: ondansetron 2 mg/ML SDV 2 mL 4 MG IVP (03:23)
[2025-03-15] MEDS: methylPREDNISolone sod succ 40 mg/mL INJ 30 MG IVP ×3 (06:15→16:50)
[2025-03-15] MEDS: metoclopramide 5 mg/mL SDV 2 mL IVP (08:31)
[2025-03-15] MEDS: HYDROcodone-acetaminophen 5-325 mg Tablet 1 TAB PO (08:31)
--- NOTE | 2025-03-15 09:17 | PC.SOCIAL ---
IMM Updated Updated pt on IMM. No questions voiced. Provided pt a copy. Initialed, dated, & timed a copy & placed in chart.
--- NOTE | 2025-03-15 10:31 | XACV_ITS ---
Exam Room: [facility] Ht: 175 cm Wt: 50 kg BSA: 1.55 m2 Gender: Female : 1960 Any Known Allergies: No known allergies Exam Priority: Routine Procedure(s): Procedure Description: Diagnostic procedure Procedure Description: Coronary Angiography Diagnostic Cath Status: Elective Diagnostic Findings * No disease noted in the Left Main, Left Anterior Descending, Right, or Circumflex coronary arteries. * Coronary angiography shows right dominance. Conclusions 1. No disease noted in the Left Main, Left Anterior Descending, Right, or Circumflex coronary arteries. Recommendations * Aggressive risk factor modification. * Outpatient cardiology follow up in 2 weeks. Interventional RX Recommendation: medical therapy and/or counseling Diagnostic RX Recommendation: medical therapy and/or counseling Anticoagulation: Heparin Clinical Evaluation EBL: 5mL-10mL Procedural Details Procedure Consent Obtained. Admit Source: In Patient. Pre-Procedure Time Out. Identified patient by full name and date of as verbalized by the patient/guarantor. Does the consent match the physician's order: Yes. Accurate & Complete Informed Consent: Yes. Inpatient/Outpatient History & Physical on Chart: Yes. If H&P is completed, is and addenduem needed: No; If yes, is the addendum complete: N/A. Visualize and Verify Site with Patient/Guarantor: N/A. Relevant Radiology Images available: N/A. The risks, benefits, and alternatives of sedation and/or procedure were discussed by physician. The patient agrees to continue. Procedure started. [facility] Clinical Fraility Score: 4: Vulnerable. School Director Indications: Worsening Angina. Chest Pain Symptom Assessment: Typical Angina Symptoms. Correct patient, site and procedure confirmed by cath team. Current diagnosis: Chest Pain. PERRLA. Strong, equal hand digital marketer bilaterally. Lungs clear x 5 lobes. IV Site on Arrival: 20 gauge in the left anticubital. IV Fluids: 0.9% NaCl at 75ml/hr. 0 mL infused prior to lab systems analyst. Pre Procedural Pulses: bilateral radial was 2+. Oxygen started at 2liters/min via nasal canula. right radial was prepped with chloroprep then draped in the usual sterile fashion. right groin was prepped with chloroprep then draped in the usual sterile fashion. Physician notified. Baseline sample Acquired. HR: 55 BPM. Physician arrived. Physician scrubbed in. Immediate Pre-Procedure Time Out. Correct Patient: Yes; Correct Procedure: Yes; Correct Site: Yes; Correct Patient Position: Yes; Correct Supplies: Yes; Dried Flammable Prep: Yes; Blood Products Available: No;. Lidocaine 1% infiltrated to the right radial. Arterial access obtained. A 5 iraqi TIG catheter in over wire. Unable to advance wire. Wire out. Hand injection through catheter. Bartlett guidewire in through catheter. Catheter advanced over wire. Guidewire out. Exchange wire in through catheter. Catheter advanced. Wire out. Multiple views taken of left coronary artery. Catheter redirected to the RCA. Multiple views taken of right coronary artery. Catheter removed over the exchange wire. Physician scrubbed out. Post Procedure: Pulses reassessed and unchanged. PERRLA. Strong, equal hand digital marketer bilaterally. No VTE prophylaxis required. Medication's Wasted: Lidocaine 1% = 18 mL. Medication's Wasted: Nitro = 49.8 mg. Medication's Wasted: Heparin = 1000 unit. Medication's Wasted: Other = Fentanyl 50mcg. Total IV fluids: 15 mL. Post-op diagnosis: Non-obstructive CAD. Complications: None. Estimated blood loss: 5mL-10mL. Responsiveness - Normal response to verbal stimuli; alert and oriented, PERRLA. Airway - Unaffected, no intervention required; spontaneous ventilation. Circulation: W/N/L, pulses unchanged. Nausea/Vomiting: No. A TR Band was successful obtaining hemostatsis at the Right Radial artery insertion site. Procedure completed. Patient transferred by bed to ICU. Vital chart was stopped. Access Site Site: Right Radial artery Sheath Size: 6 Fr Hemostasis Method: TR Band Hemostasis Success: Successful Procedure Medications Start: 1:47 PM Stop: 1:47 PM Medication: Versed Amount: 1 mg Route: I.V. Start: 1:47 PM Stop: 1:47 PM Medication: Fentanyl Amount: 25 mcg Route: I.V. Start: 1:50 PM Stop: 1:50 PM Medication: Fentanyl Amount: 25 mcg Route: I.V. Start: 1:50 PM Stop: 1:50 PM Medication: Nitrogylcerin Amount: 200 mcg Route: I.A. Start: 1:56 PM Stop: 1:56 PM Medication: Versed Amount: 1 mg Route: I.V. I, the attending physician, have reviewed and verified all procedure medications. Yes, all medications given per verbal order History/Risk Factors Hypertension: Yes Dyslipidemia: Yes Peripheral Arterial Disease (PAD): No Myocardial Infarction (RI): No Obesity: No Renal Disease: No Tobacco Use: Former Prior Interventions PCI: No CABG: No Valve Surgery: No Report Signatures Finalized by Raymond Hope MD on 03/24/2025 10:05 PM
--- NOTE | 2025-03-15 11:25 | PC.NURSE ---
Notified Alice Garcia NP that AM dose of cardizem was held due to heart rate 50s.
--- NOTE | 2025-03-15 11:49 | PC.NURSE ---
Prepped for cardiac cath.
--- NOTE | 2025-03-15 12:19 | P.PN_ITS ---
Subjective 2 Subjective: When asked how she is feeling today, states with my fingers . Overall feeling better. No active chest pain or pressure. Breathing is improving. Vitals/I&O/Wt Last Vital Signs Temp 97.8 F 03/15/25 08:00 Pulse 52 L 03/15/25 09:00 Resp 16 03/15/25 09:00 BP 123/73 03/15/25 09:00 Pulse Ox 98 03/15/25 09:00 O2 Del Method Nasal Cannula 03/15/25 08:00 O2 Flow Rate 2 03/15/25 08:00 03/14/25 03/15/25 03/15/25 22:59 06:59 14:59 Intake Total 37.133 / 157.187 440 / 597.187 Output Total 100 / 100 200 / 300 Balance -62.867 / 57.187 240 / 297.187 Weight last 48 hrs Weight 50.5 kg Weight 52.5 kg Weight 47.627 kg Physical Exam 2 Const: COMMON NORMALS: patient oriented x3 and alert GENERAL APPEARANCE: c ooperative and frail appearing NUTRITIONAL APPEARANCE: thin O RIENTATION/CONSCIOUSNESS: Yes awake HENMT: COMMON NORMALS: oropharynx normal Neck/C-Spine: COMMON NORMALS: no JVD Resp: COMMON NORMALS: normal respiratory effort and clear to auscultation bilaterally AUSCULTATION: clear to auscultation bilaterally and diminished lung sounds Cardio: COMMON NORMALS: no JVD, regular rhythm, S1 normal heart sound present, S2 normal heart sound present and No murmurs present (Cardio) RATE: t achycardic RHYTHM: regular rhythm and abnormal rhythm irregularly irregular HEART SOUNDS: S1 normal heart sound present and S2 normal heart sound present GI: COMMON NORMALS: Normal to inspection, nondistended, normoactive bowel sounds present, Soft to palpation and non-tender PALPATION: Yes Soft to palpation Extremity: COMMON NORMALS: no joint enlargement and no pedal edema Neuro: COMMON NORMALS: patient oriented x3 and moves all extremities S ENSORIUM/ORIENTATION: Yes alert Skin: COMMON NORMALS: no rashes or lesions noted GENERAL SKIN EXAM: no rashes or lesions noted Data 03/14/25 10:40 03/14/25 10:40 Micro: Microbiology 03/14/25 13:43 Blood Culture - Preliminary Blood SPECIMEN COLLECTED 03/14/25 13:40 Blood Culture - Preliminary Blood SPECIMEN COLLECTED A&P Assessment and plan 1. Paroxysmal atrial fibrillation with RVR: Converted to sinus rhythm, bradycardia in the 50s. No active chest pain or pressure. Reviewed vitals, troponin series, EKG series, magnesium, UA. Reviewed recent echocardiogram on the , noted EF 50 to 55%, mild MVR, mild to moderate PVR. Reviewed cardiology note, discussed with cardiology. With noted dynamic EKG changes on presentation with chest pressure, ST depression inferolaterally, further plans for additional evaluation with coronary angiography for today afternoon. Repeat chemistry in the morning. On presentation AF with rates 140?200 bpm with past history of ablation, refractory to three DC cardioversions; transient rate control with IV diltiazem complicated by hypotension. Currently on amiodarone and low-dose oral diltiazem; cardiology involved for further rhythm/rate control. Monitor blood pressure, consider pressor. Maintain MAP 65 mmHg. Blood pressures overall have improved. Did not end up requiring pressor. - Continue amiodarone infusion per protocol, switch to oral amiodarone - Continue diltiazem drip with hemodynamic monitoring. Monitor for risk of hypotension. - Anticoagulation with Lovenox. Transition to oral anticoagulant at discharge. Continue aspirin pending coronary angiography evaluation. - Reviewed TSH Discussed with nursing, case specialist. 2. COPD exacerbation: Improving. Oxygenation improving. Subjectively improving. Continue to wean down and off of oxygen. Continue IV steroid, monitor for risk of hypertension, hyperglycemia, encephalopathy, gastritis, breathing treatments, empiric ceftriaxone. Sputum culture has been sent out, follow-up. Severe exacerbation of COPD. Normally on oxygen only as needed, currently requiring 3 L, with severe productive cough putting her into A-fib with RVR. Diminished air entry on exam. Copious purulent appearing sputum with color change. Several-day productive cough in patient with known COPD - guaifenesin (Mucinex) and cough suppressant as ordered - flutter valve device to assist sputum clearance - Provide tissues and supportive care Plan: History of systolic CHF, Currently not in exacerbation but at risk of exacerbation with A-fib with RVR. Monitor for risk of fluid overload and acute CHF. Patient with dynamic EKG changes, possible cardiac ischemia, additional evaluation with coronary angiography today. Monitor telemetry. Remote history of PE: Currently on anticoagulation as above for atrial fibrillation. Discussed with her abnormal D-dimer. Will benefit from continued anticoagulation for atrial fibrillation, at this time cannot exclude that she has not had a small PE as discussed with her. PDMP PDMP Reviewed: Not Reviewed Attestations 2 Medical Necessity Statement*: Continue admission for assessment and management of difficult to control atrial fibrillation with possible cardiac ischemia with dynamic EKG changes, and High MDM includes amount and/or complexity of data reviewed/ordered [ previous or external records, resulted lab(s)/test(s), ordered lab(s)/test(s) and other healthcare professional discussion] and described risk of complication, morbidity or mortality of management as documented Diagnoses Paroxysmal atrial fibrillation with RVR I48.0 COPD exacerbation J44.1
--- NOTE | 2025-03-15 13:44 | W.PM.OPSUD ---
Surgery/Procedure H&P Update DATE OF PROCEDURE: March 15, 2025 DATE H&P PERFORMED: 03/14/25 H&P UPDATE INFORMATION: I have reviewed H&P completed within last 30 days, I have examined patient prior to procedure and Changes to prior documentation as noted here CHANGES TO PREVIOUS DOCUMENTATION: Patient has been having worsening angina. Symptoms are more pronounced with with RVR. Has EKG changes as well. Will proceed with coronary angiogram PREOP DIAGNOSIS: Worsening angina PRIMARY INDICATION FOR PROCEDURE: Worsening angina PLANNED PROCEDURE: Left heart cath with possible percutaneous coronary intervention PATIENT REASSESSED PRIOR TO SEDATION, WITH NO CHANGE NOTED: Yes PHYSICAL EXAM: alert, oriented x 3 and clear to auscultation bilaterally OTHER PERTINENT EXAM FINDINGS: Regular rate and rhythm AIRWAY EVAL/ANESTHESIA PLAN: normal airway, ASA III, Local Anesthesia, Risks, benefits & alternatives of sedation and/or procedure discussed and Patient agrees to continue as planned ADDITIONAL INFORMATION: Moderate sedation
--- NOTE | 2025-03-15 14:06 | P.PCN_ITS ---
Procedure Note: Date of procedure: 03/15/25 Pre-procedure diagnosis: Worsening angina Post-procedure diagnosis: other (Patent coronary arteries) Procedure: Patent coronary arteries Performing Provider: Raymond Hope Estimated blood loss (mL): 5 Complications: None Condition: stable Disposition: ICU Coding Level of Care Code Acute Code for [facility]
--- NOTE | 2025-03-15 14:10 | PC.NURSE ---
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 V/S stable, TR band in place to right wrist - no bruising or bleeding noted.
[2025-03-15] MEDS: cefTRIAXone 1,000 mg SDV 1000 MG IVP (15:18)
--- NOTE | 2025-03-15 16:53 | P.PN_ITS ---
<Statement entered by Raymond Hope M.D - 03/16/25 12:47> Patient was cared for in conjunction with an advanced practice practitioner.? I reviewed the chart and all pertinent data including imaging, telemetry, and laboratory results.? I discussed the patient in detail with the advanced practice practitioner.? Please see?their note for progress note, testing results and agreed upon plan of care for the patient. Subjective 2 Subjective: No events noted overnight. She underwent coronary angiogram this afternoon, finding patent coronary arteries. She remains in sinus rhythm, heart rates have been bradycardic in the low 50s, holding diltiazem. Continue amiodarone, can can transition to oral amiodarone. Vitals/I&O/Wt Last Vital Signs Temp 98.2 F 03/15/25 16:00 Pulse 57 L 03/15/25 16:00 Resp 17 03/15/25 16:00 BP 130/79 03/15/25 16:00 Pulse Ox 100 03/15/25 16:00 O2 Del Method Nasal Cannula 03/15/25 16:00 O2 Flow Rate 2 03/15/25 16:00 03/15/25 03/15/25 03/15/25 06:59 14:59 22:59 Intake Total 440 / 597.187 Output Total 200 / 300 Balance 240 / 297.187 Weight last 48 hrs Weight 111 lb 5.335 oz Weight 115 lb 11.883 oz Weight 105 lb Physical Exam 2 Const: COMMON NORMALS: no acute distress and patient oriented x3 GENERAL APPEARANCE: cooperative and comfortable ORIENTATION/CONSCIOUSNESS: Yes awake, Yes oriented to person, Yes oriented to place and Yes oriented to time Chest: COMMONS NORMALS: normal inspection of the chest and normal palpation of entire chest wall CHEST: Yes Symmetrical chest wall rise Resp: COMMON NORMALS: normal respiratory effort, No retractions, No use of accessory muscles and clear to auscultation bilaterally EFFORT & INSPECTION: Yes symmetric chest movement AUSCULTATION: clear to auscultation bilaterally Cardio: COMMON NORMALS: regular rhythm, S1 normal heart sound present, S2 normal heart sound present, No gallops present (Cardio), No clicks present (Cardio), No murmurs present (Cardio) and No rub (Cardio) RATE: bradycardic RHYTHM: regular rhythm HEART SOUNDS: S1 normal heart sound present and S2 normal heart sound present PERIPHERAL PULSES: radial pulses present Extremity: COMMON NORMALS: no pedal edema Neuro: COMMON NORMALS: patient oriented x3 and moves all extremities S ENSORIUM/ORIENTATION: Yes oriented to person, Yes oriented to place and Yes oriented to time Data 03/14/25 10:40 03/14/25 10:40 Micro: Microbiology 03/14/25 13:43 Blood Culture - Preliminary Blood NEGATIVE TO DATE 03/14/25 13:40 Blood Culture - Preliminary Blood NEGATIVE TO DATE A&P Assessment and plan 1. Paroxysmal atrial fibrillation: 2. S/P ablation of atrial fibrillation: 3. Chest pain: Plan: Coronary angiogram today showed patent coronary arteries. She has remained in sinus rhythm, will plan to transition amiodarone to oral and suggest to hold diltiazem due to bradycardia. She can discharge home tomorrow when okay with hospitalist service. She may need an event monitor. PDMP PDMP Reviewed: Not Reviewed Attestations 2 Medical Necessity Statement*: Possible discharge home tomorrow Coding Level of Care Code Acute Code for [facility] Diagnoses Paroxysmal atrial fibrillation I48.0 S/P ablation of atrial fibrillation Z98.890; Z86.79 Chest pain R07.9
--- NOTE | 2025-03-15 19:23 | PC.NURSE ---
1500 -- 2 mL air removed from right radial TR band. 1520 -- 2 mL air removed from right radial TR band. 1600 -- 2mL air removed from right radial TR band. 1620 -- 2mL air removed from right radial TR band. 1700 -- 2mL air removed from right radial TR band. 1830 -- 2mL air removed from right radial TR band.
--- NOTE | 2025-03-15 21:50 | PC.NURSE ---
TR band off at 2100. Covered with tegaderm, no hematoma present, right radial pulse 3+ to palpation, skin normal/warm.
[2025-03-16] VITALS (22 sets, daily range): BP systolic 102–143; BP diastolic 62–86; PULSE 49–75; RESP 12–25; TEMP 36.3–36.8; O2SAT 90–100
[2025-03-16] MEDS: methylPREDNISolone sod succ 40 mg/mL INJ 30 MG IVP ×5 (00:18→22:27)
[2025-03-16 05:28] LABS: Hematocrit 40.2 % (36-47); Hemoglobin 12.80 g/dL (11.27-16.99); Mean Corpuscular HGB Conc 31.8 g/dL (30-55); Mean Corpuscular Hemoglobin 30.0 pg (27-33); Mean Corpuscular Volume 94.1 fl (85-98); Nucleated Red Blood Cells % 0 %; Platelet Count 381 10^3/cmm (157-399); Red Blood Count 4.27 10^6/uL (3.85-5.65); White Blood Count 13.92 10^3/uL (3.29-11.43)
[2025-03-16 05:43] LABS: Alanine Aminotransferase < 5 U/L (0-33); Albumin Level 3.3 g/dL (3.5-5.2); Alkaline Phosphatase 86 U/L (35-105); Anion Gap 10.3 (5-19); Aspartate Amino Transferase 12 U/L (0-32); Blood Urea Nitrogen 27 mg/dL (8-23); Calcium 8.8 mg/dL (8.5-10.5); Carbon Dioxide 31 mmol/L (22-29); Chloride 103 mmol/L (98-107); Creatinine Clr Calc Pharmacy 54.9401; Globulin 2.8 g/dL (1.3-4.6); Glucose 142 mg/dL (65-115); Osmolality Calculated 298 mOsm/kg (285-295); Potassium 4.3 mmol/L (3.5-5.1); Sodium 140 mmol/L (136-145); Total Protein 6.1 g/dL (6.6-8.7)
[2025-03-16] MEDS: ondansetron 2 mg/ML SDV 2 mL 4 MG IVP (10:02)
--- NOTE | 2025-03-16 10:19 | P.PN_ITS ---
Subjective 2 Subjective: Patient has some nausea. No significant CAD seen on coronary angiogram. Heart rate is controlled. Vitals/I&O/Wt Last Vital Signs Temp 97.6 F 03/16/25 08:00 Pulse 62 03/16/25 08:42 Resp 15 03/16/25 08:42 BP 124/71 03/16/25 08:00 Pulse Ox 93 03/16/25 08:42 O2 Del Method Room Air 03/16/25 08:42 O2 Flow Rate 2 03/16/25 08:00 03/15/25 03/16/25 03/16/25 22:59 06:59 14:59 Intake Total 500 / 500 540 / 1040 400 / 400 Output Total 250 / 250 150 / 400 Balance 250 / 250 390 / 640 400 / 400 Weight last 48 hrs Weight 112 lb 6.972 oz Weight 111 lb 5.335 oz Weight 115 lb 11.883 oz Weight 105 lb Physical Exam 2 Narrative: GENERAL: Patient is alert, awake and oriented x3. [] NECK: No jugular vein distension. [] HEENT: No cyanosis. No icterus. No pallor. [] HEART: Regular S1 and S2. No murmur, rub or gallop. [] LUNGS: Clear to auscultate bilaterally. [] CENTRAL NERVOUS SYSTEM: Grossly nonfocal. [] EXTREMITIES: Lower extremities with no edema bilaterally. Data 03/16/25 03:54 03/16/25 03:54 Micro: Microbiology 03/14/25 20:00 Gram Stain - Final Sputum - Expectorated Sputum 03/14/25 13:43 Blood Culture - Preliminary Blood NEGATIVE TO DATE 03/14/25 13:40 Blood Culture - Preliminary Blood NEGATIVE TO DATE A&P Assessment and plan 1. Paroxysmal atrial fibrillation: 2. S/P ablation of atrial fibrillation: 3. Chest pain: Plan: Patient is maintaining sinus rhythm. Can send home on amiodarone 200 mg twice daily. Event monitor. EF was normal on recent echocardiogram Thank you for involving us with care of this patient. Please call with questions. PDMP PDMP Reviewed: Not Reviewed Attestations 2 Medical Necessity Statement*: Care expected to cross 2 midnights. Coding Level of Care Code Acute Code for [facility] Diagnoses Paroxysmal atrial fibrillation I48.0 S/P ablation of atrial fibrillation Z98.890; Z86.79 Chest pain R07.9
[2025-03-16] MEDS: cefTRIAXone 1,000 mg SDV 1000 MG IVP (15:41)
--- NOTE | 2025-03-16 15:57 | P.PN_ITS ---
Subjective 2 Subjective: Patient seen and evaluated and related that she had been with nausea and related that today cardiology said that she will be in house to monitor for the nausea to see if it is all medication related. In the documentation cardiology had also related that patient is okay to go from cardiology standpoint. Will monitor patient will follow through and plan for tomorrow discharge Vitals/I&O/Wt Last Vital Signs Temp 97.6 F 03/16/25 12:00 Pulse 65 03/16/25 14:00 Resp 14 03/16/25 12:00 BP 127/76 03/16/25 12:00 Pulse Ox 99 03/16/25 12:00 O2 Del Method Nasal Cannula 03/16/25 12:00 O2 Flow Rate 2 03/16/25 12:00 03/16/25 03/16/25 03/16/25 06:59 14:59 22:59 Intake Total 540 / 1040 650 / 650 Output Total 150 / 400 Balance 390 / 640 650 / 650 Weight last 48 hrs Weight 51 kg Weight 50.5 kg Physical Exam 2 Narrative: The patient is well sitting up in bed denies any shortness of breath no chest pain Patient status post angioplasty with clean coronary yesterday. Generally patient is in no apparent distress HEENT normocephalic/atraumatic neck neck is supple cardiovascular heart rate is regular lungs are pretty much clear abdomen soft nontender nondistended unremarkable extremities are intact no edema has good pulses neurology no focality. Data 03/16/25 03:54 03/16/25 03:54 Micro: Microbiology 03/14/25 20:00 Gram Stain - Final Sputum - Expectorated Sputum Sputum Culture - Preliminary 03/14/25 20:00 Urine Culture - Final Urine,Clean Catch 03/14/25 13:43 Blood Culture - Preliminary Blood NEGATIVE TO DATE 03/14/25 13:40 Blood Culture - Preliminary Blood NEGATIVE TO DATE A&P Assessment and plan 1. Paroxysmal atrial fibrillation with RVR: Patient with A-fib with RVR now controlled Heart rates in the 60s and still in A-fib Patient had had a history of A-fib and was status post ablation Amiodarone initiated already 200 mg twice daily Status post angiogram with clear coronary 2. S/P ablation of atrial fibrillation: Status post atrial ablation in the past that worked for A-fib with RVR 3. COPD exacerbation: Patient on nebulizing treatment No bronchospasm no steroid needed patient is doing well 4. Bradycardia: Bradycardia resolved In the setting of chest pains atrial fibrillation with RVR with a history of bradycardia patient was status post angiogram that is clean unclear 5. COPD (chronic obstructive pulmonary disease): Pulmonary disease doing okay with nebulizing treatment likely this might be secondary to intrathoracic tension with A-fib and RVR Plan: See above. GI and DVT prophylaxis in place PDMP PDMP Reviewed: Last Reviewed 03/16/25 16:22 by Kaylie Gómez MD Attestations 2 Medical Necessity Statement*: Will allow 1 more day for optimization of care and evaluation of nausea. Coding Level of Care Code Acute Code for [facility] Diagnoses Paroxysmal atrial fibrillation with RVR I48.0 S/P ablation of atrial fibrillation Z98.890; Z86.79 COPD exacerbation J44.1 Bradycardia R00.1 COPD (chronic obstructive pulmonary disease) J44.9
[2025-03-17] VITALS (16 sets, daily range): BP systolic 99–151; BP diastolic 59–92; PULSE 50–68; RESP 15–21; TEMP 36.3–37; O2SAT 90–99
--- NOTE | 2025-03-17 05:02 | PC.NURSE ---
[address]30 dose of cardizem held. Dr. Soto notified,said okay to hold due to pt vital signs. HR 50, blood pressure 117/74.
[2025-03-17] MEDS: methylPREDNISolone sod succ 40 mg/mL INJ 30 MG IVP ×2 (05:09→11:31)
--- NOTE | 2025-03-17 10:50 | P.PN_ITS ---
Subjective 2 Subjective: Patient feeling much better. No chest pain. Vitals/I&O/Wt Last Vital Signs Temp 97.9 F 03/17/25 08:00 Pulse 63 03/17/25 09:00 Resp 15 03/17/25 09:00 BP 125/75 03/17/25 09:00 Pulse Ox 92 03/17/25 08:33 O2 Del Method Room Air 03/17/25 08:33 O2 Flow Rate 2 03/17/25 05:00 03/16/25 03/17/25 03/17/25 22:59 06:59 14:59 Intake Total 640 / 1290 400 / 400 Balance 640 / 1290 400 / 400 Weight last 48 hrs Weight 112 lb 6.972 oz Weight 112 lb 6.972 oz Physical Exam 2 Narrative: GENERAL: Patient is alert, awake and oriented x3. [] NECK: No jugular vein distension. [] HEENT: No cyanosis. No icterus. No pallor. [] HEART: Regular S1 and S2. No murmur, rub or gallop. [] LUNGS: Clear to auscultate bilaterally. [] CENTRAL NERVOUS SYSTEM: Grossly nonfocal. [] EXTREMITIES: Lower extremities with no edema bilaterally. Data 03/16/25 03:54 03/16/25 03:54 Micro: Microbiology 03/14/25 20:00 Gram Stain - Final Sputum - Expectorated Sputum Sputum Culture - Preliminary 03/14/25 20:00 Urine Culture - Final Urine,Clean Catch A&P Assessment and plan 1. Paroxysmal atrial fibrillation: 2. S/P ablation of atrial fibrillation: 3. Chest pain: Plan: Patient switched to Eliquis 5 mg twice daily. Continue amiodarone 200 mg twice daily for 1 week and then once daily. Event monitor as outpatient. Outpatient cardiology follow-up. Thank you for involving us with care of this patient. Please call with questions. PDMP PDMP Reviewed: Not Reviewed Attestations 2 Medical Necessity Statement*: Care expected to cross 2 midnights. Coding Level of Care Code Acute Code for [facility] Diagnoses Paroxysmal atrial fibrillation I48.0 S/P ablation of atrial fibrillation Z98.890; Z86.79 Chest pain R07.9
--- NOTE | 2025-03-17 13:36 | P.DS_ITS ---
Discharge Providers Date of Admission: 03/14/25 12:08 Date of Discharge: March 17, 2025 Attending Provider at Admission: Lee Cee Attending Provider at Discharge: Kaylie Gómez MD Primary Care Provider: Smooth Hensley MD Diagnoses at Discharge Discharge Diagnosis 1. Paroxysmal atrial fibrillation: 2. S/P ablation of atrial fibrillation: 3. Chest pain: Reason for Visit Reason for Visit: afib rvr Hospital Course Hospital Course Blanca Ramirez is a 65 year old patient with a history of coronary artery disease, systolic congestive heart failure (EF 25?29% in 2020), chronic obstructive pulmonary disease on home oxygen, atrial fibrillation (status-post ablation), and prior pulmonary embolism presenting with several hours of chest discomfort and palpitations. Emergency Medical Services recorded atrial fibrillation with heart rates up to 190?200 bpm; a 20 mg IV diltiazem push transiently slowed the rate but caused hypotension. Emergency Department attempts at DC cardioversion (three shocks) were unsuccessful. Amiodarone and continuous diltiazem infusions were started, and cardiology (Dr. Hope) was consulted. The patient notes a several-day cough that produced a large amount of sputum this morning, associated mild nausea (treated in ED), but denies fever, chills, vomiting, diarrhea, or lower-extremity swelling. She states atrial fibrillation was triggered with with a severe episode of cough trying to bring up a lot of sputum. They usually require home oxygen but do not wear it at night. Review of systems otherwise negative for sore throat or rash. Patient atrial fibrillation with rapid ventricular rate most likely was precipitated by intractable cough for is COPD exacerbation. Patient had done remarkably well the exacerbation had resolved patient has so much cough and doing okay now. Patient has been treated in-house with nebulizing treatment steroid therapy along with Antitussin. At this time of discharge for COPD exacerbation nebulizing treatment have been ordered and antibiotics such as doxycycline. Patient has steroid therapy as well a low-dose of 20 mg daily x 7 days. Patient also had much rapid ventricular rates with atrial fibrillation when he came in patient had been in atrial fibrillation but was never on any ant icoagulant. Patient rate control was successful with Cardizem and metoprolol. Initially patient was supposed to be on amiodarone but that could not go through because patient showed allergy to amiodarone. Now rates has been controlled on metoprolol 100 mg twice daily along with Cardizem 180 mg twice daily. Patient had Eliquis added at 5 mg 1 tablet p.o. twice daily with supply of 2 months. e unit up planning to give patient a coupon at this time of discharge to help with the cost. Hopefully the insurance should be able to cover Eliquis 5. Cardiology had been on the case with Dr. Reddy. And had encouraged for patient to be discharged at this time and then to follow-up with cardiology in 2 weeks. Physical Exam Narrative: Patient seen and evaluated and had been doing well and is going to be discharged today. Patient denies any complaints and not ill-appearing Adderall does not cough anymore. HEENT normocephalic/atraumatic neck neck is supple cardiovascular heart rate is regular lungs are pretty much clear abdomen soft nontender nondistended unremarkable extremities are intact no edema has good pulses neurology has no focality lab studies lab studies reviewed and noted. 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 Hyperinflation and emphysematous change. 2. Atherosclerosis. Laboratory Results WBC 13.92 10^3/uL (3.29-11.43) H 03/16/25 03:54 RBC 4.27 10^6/uL (3.85-5.65) 03/16/25 03:54 Hgb 12.80 g/dL (11.27-16.99) 03/16/25 03:54 Hct 40.2 % (36-47) 03/16/25 03:54 MCV 94.1 fl (85-98) 03/16/25 03:54 MCH 30.0 pg (27-33) 03/16/25 03:54 MCHC 31.8 g/dL (30-55) 03/16/25 03:54 RDW 13.6 % (12.1-15.1) 03/16/25 03:54 Plt Count 381 10^3/cmm (157-399) 03/16/25 03:54 MPV 9.6 fL (7.4-10.4) 03/16/25 03:54 Neut % (Auto) 89.7 % 03/16/25 03:54 Lymph % (Auto) 6.5 % 03/16/25 03:54 Bradley % (Auto) 2.9 % 03/16/25 03:54 Eos % (Auto) 0.0 % 03/16/25 03:54 Baso % (Auto) 0.1 % 03/16/25 03:54 Neut # (Auto) 12.48 10^3/uL (1.8-7.7) H 03/16/25 03:54 Lymph # (Auto) 0.9 10^3/uL (0.8-4.8) 03/16/25 03:54 Bradley # (Auto) 0.4 10^3/uL (0.2-0.9) 03/16/25 03:54 Eos # (Auto) 0.0 10^3/uL (0.0-0.8) 03/16/25 03:54 Baso # (Auto) 0.0 10^3/uL (0.0-0.1) 03/16/25 03:54 Nucleated RBC % (auto) 0 % 03/16/25 03:54 Nucleated RBCs # 0.0 /100WBC 03/16/25 03:54 D-Dimer 1.12 ug/mLFEU (0-0.59) H 03/14/25 10:40 Sodium 140 mmol/L (136-145) 03/16/25 03:54 Potassium 4.3 mmol/L (3.5-5.1) 03/16/25 03:54 Chloride 103 mmol/L (98-107) 03/16/25 03:54 Carbon Dioxide 31 mmol/L (22-29) H 03/16/25 03:54 Anion Gap 10.3 (5-19) 03/16/25 03:54 BUN 27 mg/dL (8-23) H 03/16/25 03:54 Creatinine 0.7 mg/dL (0.5-0.9) 03/16/25 03:54 GFR Calculation 83.5 mL/min (90-130) L 03/16/25 03:54 Glucose 142 mg/dL (65-115) H 03/16/25 03:54 Calculated Osmolality 298 mOsm/kg (285-295) H 03/16/25 03:54 Calcium 8.8 mg/dL (8.5-10.5) 03/16/25 03:54 Magnesium 2.0 mg/dL (1.7-2.3) 03/14/25 13:43 Total Bilirubin 0.2 mg/dL (0.15-1.2) 03/16/25 03:54 AST 12 U/L (0-32) 03/16/25 03:54 ALT < 5 U/L (0-33) 03/16/25 03:54 Alkaline Phosphatase 86 U/L (35-105) 03/16/25 03:54 Troponin T Baseline 16 ng/L (0-10) H 03/14/25 10:40 Troponin T 120 Minute 13.13 ng/L (0-10) H 03/14/25 12:28 Delta Troponin T -2.87 ABS# (0-10) L 03/14/25 12:28 Troponin T Hi Sens 6Hr 19.13 ng/L (0-10) H 03/14/25 16:37 Troponin T Hi Sens 6Hr Delta 3.13 ng/L (0-12) 03/14/25 16:37 Total Protein 6.1 g/dL (6.6-8.7) L 03/16/25 03:54 Albumin 3.3 g/dL (3.5-5.2) L 03/16/25 03:54 Globulin 2.8 g/dL (1.3-4.6) 03/16/25 03:54 TSH 2.00 uIU/mL (0.27-4.20) 03/14/25 13:43 Urine Color Yellow (Yellow) 03/14/25 20:00 Urine Appearance Cloudy (CLEAR) A 03/14/25 20:00 Urine pH 5.5 (5-7) 03/14/25 20:00 Ur Specific [place] 1.037 (1.005-1.030) H 03/14/25 20:00 Urine Protein 2+ (Negative) A 03/14/25 20:00 Urine Glucose (UA) Trace (Normal) H 03/14/25 20:00 Urine Ketones 2+ (Negative) H 03/14/25 20:00 Urine Blood 2+ (Negative) A 03/14/25 20:00 Urine Nitrate Negative (Negative) 03/14/25 20:00 Urine Bilirubin Negative (Negative) 03/14/25 20:00 Urine Urobilinogen 1.0 mg/dL (Negative) 03/14/25 20:00 Ur Leukocyte Esterase Negative (Negative) 03/14/25 20:00 Urine RBC 51-100 /hpf (0-2) H 03/14/25 20:00 Urine WBC 0-5 /hpf (0-5) 03/14/25 20:00 Ur Squamous Epith Cells 0-5 /hpf (0-5) 03/14/25 20:00 Amorphous Sediment Not Reportable 03/14/25 20:00 Urine Bacteria None seen /hpf (NONE) 03/14/25 20:00 Hyaline Casts 37.64 /lpf 03/14/25 20:00 Vitals Last Vital Signs Temp 98.0 F 03/17/25 12:00 Pulse 68 03/17/25 12:00 Resp 21 H 03/17/25 12:00 BP 150/91 03/17/25 12:00 Pulse Ox 92 03/17/25 08:33 O2 Del Method Room Air 03/17/25 08:33 O2 Flow Rate 2 03/17/25 05:00 Discharge Plan Discharge Patient Disposition: Home Condition: Stable Prescriptions: New amiodarone [Pacerone] 200 mg Tablet 200 mg PO BID@0900,2100 Qty: 120 0RF Eliquis 5 mg Tablet 5 mg PO BID@0900,2100 Qty: 120 0RF doxycycline hyclate 100 mg capsule 100 mg PO BID 7 Days Qty: 14 0RF prednisone 20 mg tablet 20 mg PO DAILY 7 Days Qty: 7 0RF Rx Instructions: days 11-21 of therapy guaifenesin [Mucinex] 600 mg Tablet Extended Release 12hr 1,200 mg PO BID Qty: 10 0RF budesonide 0.5 mg/2 mL Suspension For Nebulization 0.5 mg inhalation BID.RESPIRATORY Qty: 120 0RF Continued aspirin [Adult Low Dose Aspirin] 81 mg tablet,delayed release (DR/EC) 81 mg PO DAILY furosemide 20 mg tablet 20 mg PO ONCE PRN (Reason: edema) Qty: 30 0RF ipratropium bromide 0.02 % solution 2.5 ml continuous nebulization Q6H PRN (Reason: shortness of breath or wheez ing) Qty: 75 2RF albuterol sulfate 90 mcg/actuation HFA aerosol inhaler 1 inh inhalation QID PRN (Reason: shortness of breath or wheezing) Qty: 8.5 3RF meloxicam 15 mg tablet 15 mg PO DAILY Qty: 90 1RF Marijuana 1 unit inhalation DAILY fluticasone propion-salmeterol [Advair HFA] 115-21 mcg/actuation HFA aerosol inhaler 2 puff inhalation BID Qty: 12 0RF Rx Instructions: administer with spacer albuterol sulfate 2.5 mg /3 mL (0.083 %) solution for nebulization 2.5 mg inhalation QID PRN (Reason: shortness of breath or wheezing) Qty: 90 2RF Marine Service Manager OK for DC: Cardiology and Hospitalist Discharge Order = DC NOW: Discharge Order (Routine); Ordered 03/17/25 Ordered By: Kaylie Gómez Referrals: Smooth Hensley MD [Primary Care Provider, Family Practice] Patient Instructions: Doxycycline (By mouth), Prednisone (By mouth), Guaifenesin (By mouth), Amiodarone (By mouth), Budesonide (Into the nose), Apixaban (By mouth), Angina (DC), A-fib (Atrial Fibrillation) (DC), Bradycardia (DC), Opioid Safety, Patient Portal & Mikki Instructions Discharge Attestations Time Spent in Discharge Care*: less than 30 min Status at Discharge: Cognitive status at discharge: cognitively intact , Behavioral status at discharge: cooperative , Quality Metrics Clinical Quality Measures [ No reported AMI, CVA or VTE this stay] Coding Level of Care Code 66325 Diagnoses Paroxysmal atrial fibrillation I48.0 S/P ablation of atrial fibrillation Z98.890; Z86.79 Chest pain R07.9 Time Spent (min) 30
--- NOTE | 2025-03-17 14:36 | PC.NURSE ---
Discharge education done, IV removed, patient dressed. Amiodarone 200mg and Eliquis 5mg given to patient for this PM dose, patient states that when her ride is able to come and pick her up the pharmacy will be closed.
== END 2025-03-17 14:36 | disposition home or self-care (01) | DRG 287 ==
LOC: ER 11:05 → ER IP 12:55 → ICU 15:10
PROVIDERS: Internal Medicine; Admitting Provider Internal Medicine; Emergency Provider Family Medicine; PCP Family Medicine; Visit Provider Internal Medicine
PROC: 4A023N7 Measurement of Cardiac Sampling and Pressure, Left Heart, Percutaneous Approach (ICD-10-PCS; principal; 2025-03-15 13:00)
DX: I48.0 Paroxysmal atrial fibrillation (principal); J44.1 Chronic obstructive pulmonary disease with (acute) exacerbation; I95.2 Hypotension due to drugs; T46.1X5A Adverse effect of calcium-channel blockers, initial encounter; Y92.239 Unspecified place in hospital as the place of occurrence of the external cause; I25.10 Atherosclerotic heart disease of native coronary artery without angina pectoris; J43.9 Emphysema, unspecified; R51.9 Headache, unspecified; R31.9 Hematuria, unspecified; Z99.81 Dependence on supplemental oxygen; Z86.711 Personal history of pulmonary embolism; Z87.891 Personal history of nicotine dependence; Z79.82 Long term (current) use of aspirin
CPT/HCPCS: 36415; 71045; 80053; 81001; 83735; 84443; 84484; 85025; 85378; 87040; 87070; 87077; 87086; 87205; 93005; 93306; 93454; 94640; 96365; 96366; 96367; 96372; 96375; 99152; 99291; A4222; C1769; C1887; C1894; J0283; J0696; J1644; J1650; J2250; J2405; J2765; J2919; J3010; J3490; J7030; J7614; J7626; J9999; Q0163; Q9967

== ENCOUNTER → 2025-04-01 13:28 | Outpatient (BNVA) | payer MEDICARE, MEDICAID, SELFPAY | PROVIDERS: Absent Provider Internal Medicine; PCP Family Medicine; Visit Provider Nurse Practitioner Family | DX: I11.0 Hypertensive heart disease with heart failure (principal); I50.9 Heart failure, unspecified; I48.91 Unspecified atrial fibrillation; Z79.01 Long term (current) use of anticoagulants; Z79.82 Long term (current) use of aspirin; I25.10 Atherosclerotic heart disease of native coronary artery without angina pectoris; Z86.711 Personal history of pulmonary embolism; Z87.891 Personal history of nicotine dependence; I25.2 Old myocardial infarction; I10 Essential (primary) hypertension | CPT/HCPCS: 36415; 80048; 85025; 99214 ==

== ENCOUNTER 2025-04-03 14:44 | Outpatient (CLI) | payer MEDICARE, MEDICAID, SELFPAY | END 2025-04-03 14:45 | disposition home or self-care (01) | LOC: LAB 14:47 | PROVIDERS: PCP Family Medicine; Visit Provider Nurse Practitioner Family | DX: I10 Essential (primary) hypertension (principal) | CPT/HCPCS: 82274 ==

== ENCOUNTER 2025-04-15 11:16 | Outpatient (CLI) | payer MEDICARE, MEDICAID, SELFPAY ==
[2025-04-15 12:10] LABS: Hematocrit 31.3 % (36-47); Hemoglobin 9.00 g/dL (11.27-16.99); Mean Corpuscular HGB Conc 28.8 g/dL (30-55); Mean Corpuscular Hemoglobin 27.3 pg (27-33); Mean Corpuscular Volume 94.8 fl (85-98); Nucleated Red Blood Cells % 0 %; Platelet Count 310 10^3/cmm (157-399); Red Blood Count 3.30 10^6/uL (3.85-5.65); White Blood Count 6.20 10^3/uL (3.29-11.43)
== END 2025-04-15 11:17 | disposition home or self-care (01) ==
LOC: LAB 11:21
PROVIDERS: PCP Family Medicine; Visit Provider Nurse Practitioner Family
DX: I48.0 Paroxysmal atrial fibrillation (principal)
CPT/HCPCS: 36415; 85025

== ENCOUNTER → 2025-04-30 15:04 | Outpatient (BNVA) | payer MEDICARE, MEDICAID, SELFPAY | PROVIDERS: PCP Family Medicine; Visit Provider Internal Medicine Cardiovascular Disease | DX: I48.0 Paroxysmal atrial fibrillation (principal); Z79.82 Long term (current) use of aspirin; I11.0 Hypertensive heart disease with heart failure; I50.20 Unspecified systolic (congestive) heart failure; J96.11 Chronic respiratory failure with hypoxia; Z98.890 Other specified postprocedural states; Z87.891 Personal history of nicotine dependence; I25.2 Old myocardial infarction; R07.9 Chest pain, unspecified; I50.9 Heart failure, unspecified | CPT/HCPCS: 99214 ==

== ENCOUNTER 2025-05-09 12:06 | Outpatient (CLI) | payer MEDICARE, MEDICAID, SELFPAY ==
[2025-05-09 12:59] LABS: Hematocrit 33.9 % (36-47); Hemoglobin 9.60 g/dL (11.27-16.99); Mean Corpuscular HGB Conc 28.3 g/dL (30-55); Mean Corpuscular Hemoglobin 24.8 pg (27-33); Mean Corpuscular Volume 87.6 fl (85-98); Nucleated Red Blood Cells % 0 %; Platelet Count 283 10^3/cmm (157-399); Red Blood Count 3.87 10^6/uL (3.85-5.65); White Blood Count 6.51 10^3/uL (3.29-11.43)
[2025-05-09 13:23] LABS: Anion Gap 12.8 (5-19); Blood Urea Nitrogen 10 mg/dL (8-23); Calcium 8.9 mg/dL (8.5-10.5); Carbon Dioxide 33 mmol/L (22-29); Chloride 100 mmol/L (98-107); Glucose 107 mg/dL (65-115); NT Pro B Type Natriuretic Pept 515 pg/mL (0-125); Osmolality Calculated 294 mOsm/kg (285-295); Potassium 3.8 mmol/L (3.5-5.1); Sodium 142 mmol/L (136-145)
== END 2025-05-09 12:07 | disposition home or self-care (01) ==
LOC: LAB 12:09
PROVIDERS: PCP Family Medicine; Visit Provider Internal Medicine Cardiovascular Disease
DX: J96.11 Chronic respiratory failure with hypoxia (principal); Z99.81 Dependence on supplemental oxygen; J43.9 Emphysema, unspecified; Z86.711 Personal history of pulmonary embolism; Z79.82 Long term (current) use of aspirin; F12.90 Cannabis use, unspecified, uncomplicated; Z87.891 Personal history of nicotine dependence; J44.9 Chronic obstructive pulmonary disease, unspecified
CPT/HCPCS: 36415; 80048; 83880; 85025; 99214

== ENCOUNTER 2025-05-20 15:35 | Outpatient (CLI) | payer MEDICARE, MEDICAID, SELFPAY ==
--- NOTE | 2025-05-20 16:00 | CT_ITS ---
WS: [id number] LDCT LUNG CANCER SCREENING HISTORY: lung screening TECHNIQUE: Axial imaging performed from the apices to 1 cm below the costophrenic angles. Coronal and sagittal reformats are submitted with axial MIP series. All CT scans at [facility] use at least one of these dose optimization techniques: automated exposure control; mA and/or kV adjustment per patient size (includes targeted exams where dose is matched to clinical indication); or iterative reconstruction. DLP: 49.48 mGy.cm DIvol: Mean CTDIvol: 0.70 (mGy) COMPARISON: 10/10/2020, 10/10/1999 Diagnostic quality: Satisfactory Lungs: Severe hyperexpansion with emphysema. Biapical pleural thickening and scarring with bullous disease. No masses, consolidation or pneumonia. No nodules. There is mild pleural thickening along the superior RIGHT major fissure. There is additional pleural thickening at the RIGHT lung base which is similar to the prior study 2020. Very tiny layering RIGHT pleural effusion. Heart: Mild cardiomegaly. No pericardial effusions. Other findings: Atherosclerosis aorta. Mildly ectatic aorta. Pulmonary artery is dilated. No pathologically enlarged lymph nodes. Mild hyperplasia LEFT adrenal gland. CT/CT lung screening [id number] IMPRESSION: LUNG-RADS: 2S-Benign Appearance or Behavior with Significant Findings FOLLOW UP: 12 Month: Continue annual screening with LDCT OTHER FINDINGS (S MODIFIER): Pulmonary hypertension.
== END 2025-05-20 15:36 | disposition home or self-care (01) ==
LOC: RAD 15:37
PROVIDERS: PCP Family Medicine; Visit Provider Internal Medicine
DX: Z12.2 Encounter for screening for malignant neoplasm of respiratory organs (principal); Z87.891 Personal history of nicotine dependence; J44.9 Chronic obstructive pulmonary disease, unspecified; J43.9 Emphysema, unspecified; E27.8 Other specified disorders of adrenal gland
CPT/HCPCS: 36415; 71271; 82103

== ENCOUNTER → 2025-05-22 13:57 | Outpatient (BNVA) | payer MEDICARE, MEDICAID, SELFPAY | PROVIDERS: PCP Family Medicine; Visit Provider Internal Medicine | DX: J43.9 Emphysema, unspecified (principal); J96.11 Chronic respiratory failure with hypoxia; Z99.81 Dependence on supplemental oxygen; Z87.891 Personal history of nicotine dependence; R91.8 Other nonspecific abnormal finding of lung field; J44.9 Chronic obstructive pulmonary disease, unspecified | CPT/HCPCS: 99214 ==

== ENCOUNTER 2025-06-28 12:40 | Outpatient (CLI) | payer MEDICARE, MEDICAID, SELFPAY ==
[2025-06-28 13:13] VITALS: PULSE 69; RESP 18; O2SAT 91
== END 2025-06-28 12:41 | disposition home or self-care (01) ==
LOC: RT 12:42
PROVIDERS: Visit Provider Internal Medicine
DX: J44.9 Chronic obstructive pulmonary disease, unspecified (principal); J98.8 Other specified respiratory disorders
CPT/HCPCS: 94060; 94729; J7613

== ENCOUNTER → 2025-07-02 13:37 | Outpatient (BNVA) | payer MEDICARE, MEDICAID, SELFPAY | PROVIDERS: PCP Family Medicine; Visit Provider Internal Medicine | DX: J43.9 Emphysema, unspecified (principal); J96.11 Chronic respiratory failure with hypoxia; Z99.81 Dependence on supplemental oxygen; J44.89 Other specified chronic obstructive pulmonary disease; Z86.711 Personal history of pulmonary embolism; Z79.82 Long term (current) use of aspirin; F12.90 Cannabis use, unspecified, uncomplicated; Z87.891 Personal history of nicotine dependence | CPT/HCPCS: 99213; Q3014 ==

== ENCOUNTER → 2025-07-30 10:02 | Outpatient (BNVA) | payer MEDICARE, MEDICAID, SELFPAY | PROVIDERS: PCP Family Medicine; Visit Provider Internal Medicine Cardiovascular Disease | DX: I48.20 Chronic atrial fibrillation, unspecified (principal); Z79.82 Long term (current) use of aspirin; I11.0 Hypertensive heart disease with heart failure; I50.20 Unspecified systolic (congestive) heart failure; J96.11 Chronic respiratory failure with hypoxia; Z99.81 Dependence on supplemental oxygen; Z98.890 Other specified postprocedural states; Z87.891 Personal history of nicotine dependence; I25.2 Old myocardial infarction; R07.9 Chest pain, unspecified | CPT/HCPCS: 99214 ==